=== PATIENT | male | born 1950 | race Caucasian/White ===

== ENCOUNTER 2016-06-06 21:36 | Emergency (ER) | payer OTHER, MEDICARE, BC ==
[~2016-06-06 21:36] MED LIST: AMLO10TA2 PO; ASPI325T70 PO; ATOR20TA58 PO; CYAN100016 SL; CYCL10TA2 PO; FENO145T2 PO; FLUT1DIS3 IH; FURO-69 PO; HYDR-2672 PO; METO25TA9 PO; MORP30CA14 PO; POTA20TA84 PO; PRAM1TAB5 PO; TEST200V3 IM; TOPI15CA4 PO; VITA1CAP3 PO; WARF1TAB7 PO
[2016-06-06 21:53] VITALS: BP 122/83
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
== END 2016-06-06 23:25 | disposition home or self-care (01) ==
LOC: ER 21:36
DX: M25.512 Pain in left shoulder (principal); K21.9 Gastro-esophageal reflux disease without esophagitis; E78.00 Pure hypercholesterolemia, unspecified; I11.9 Hypertensive heart disease without heart failure; G89.29 Other chronic pain; G43.909 Migraine, unspecified, not intractable, without status migrainosus; Z88.6 Allergy status to analgesic agent; Z88.8 Allergy status to other drugs, medicaments and biological substances; V89.2XXA Person injured in unspecified motor-vehicle accident, traffic, initial encounter; Y93.89 Activity, other specified; Y99.8 Other external cause status; Y92.89 Other specified places as the place of occurrence of the external cause
CPT/HCPCS: 73030; 99284

== ENCOUNTER 2016-07-05 13:34 | Emergency (ER) | payer MEDICARE, BC ==
[~2016-07-05] VITALS: Ht 177.8 cm; Wt 86.2 kg
[~2016-07-05 13:34] MED LIST changes: +CYCL-331 PO; -CYCL10TA2 PO; -HYDR-2672 PO; +HYDR-2766 PO
--- NOTE | 2016-07-05 13:52 | EKG ---
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
[2016-07-05 14:30] LABS: HEMATOCRIT 42.4 % (39.0-53.0); HEMOGLOBIN 14.1 g/dL (13.0-17.5); RED BLOOD COUNT 4.61 x10^6/uL (4.30-5.70); RED CELL DISTRIBUTION WIDTH 14.9 % (11.5-14.5); WHITE BLOOD COUNT 8.1 x10^3/uL (4.0-11.0)
[2016-07-05] MEDS ORDERED: methylPREDNISolone SOD SUCC PF 125 MG/2 ML VIAL. IV ONE (14:30)
[2016-07-05] MEDS ORDERED: ALBUTEROL SULFATE 2.5 MG/3 ML NEBU. CONT NEB ONE (14:30)
[2016-07-05] MEDS ORDERED: ONDANSETRON PF 4 MG/2 ML VIAL. IV ONE (14:30)
[2016-07-05] MEDS ORDERED: IPRATROPIUM BROMIDE 0.5 MG/2.5 ML NEBU. NEB ONE (14:30)
[2016-07-05] MEDS ORDERED: fentaNYL PF 100 MCG/2 ML VIAL IV ONE (14:30)
--- NOTE | 2016-07-05 14:32 | RAD ---
Examination: Single frontal view chest History: Acute shortness of breath, smoking history Comparison: 11/03/2025 Findings: Low lung volumes accentuates heart size and pulmonary vasculature. Mild linear left lung base interstitial prominence likely chronic changes grossly similar to prior exam. There is no acute infiltrate or visualized pneumothorax identified. Impression: No acute cardiopulmonary findings.
[2016-07-05] MEDS ORDERED: PANT40TA3 PO (14:34)
[2016-07-05] MEDS ORDERED: ATOR40TA PO (14:35)
[2016-07-05] MEDS ORDERED: CYCL-331 PO (14:36)
[2016-07-05 14:53] LABS: BGAS PH 7.35 (7.35-7.46)
[2016-07-05 14:58] LABS: ALBUMIN 3.2 g/dL (3.4-5.0); ALBUMIN/GLOBULIN RATIO 0.7 (1.0-1.7); CALCIUM 9.1 mg/dL (8.5-10.1); CREATININE 1.2 mg/dL (0.7-1.3); GFR 60.6; POTASSIUM 3.8 mmol/L (3.5-5.1); TOTAL BILIRUBIN 0.5 mg/dL (0.2-1.0); TOTAL PROTEIN 7.7 g/dL (6.4-8.2)
[2016-07-05] MEDS ORDERED: CONTRAST GIVEN MC PRN (15:15)
--- NOTE | 2016-07-05 15:24 | ED.ADGEN ---
Past History Past Medical History: CAD Past Surgical History: Other Smoking: Cigarettes, Less than 1pk/day Alcohol Use: None Drug Use: None Adult General Chief Complaint Chief Complaint Shortness of air HPI HPI Patient is a 66-year-old male with history of chronic bronchitis who presents with increased shortness of breath since yesterday afternoon. Symptoms began after spray pain exposure. No relief with home albuterol. Patient reports productive cough with clear sputum. Reports Chest tightness with cough only, denies fever chills, nausea vomiting and sweats. No chest pain chest tightness, leg pain and swelling history of DVT or PE. No other acute symptoms or complaints. Review of Systems Review of Systems ROS as per HPI. Current Medications Current Medications Current Medications Medications (Trade) Dose Ordered Sig/Rosalie Start Time Stop Time Status Last Admin Dose Admin Albuterol Sulfate (Ventolin) 10 mg 1X ONCE 07/05/16 14:30 07/05/16 14:32 DC 07/05/16 15:17 10 MG Fentanyl Citrate (Fentanyl 2ml Vial) 50 mcg 1X ONCE 07/05/16 14:30 07/05/16 14:32 DC 07/05/16 14:23 50 MCG Info (Do NOT chart on this entry -- for MONITORING) 1 each PRN DAILY PRN 07/05/16 15:15 07/07/16 15:14 Iohexol (Omnipaque 300 Mg/ml) 75 ml 1X ONCE 07/05/16 15:30 07/05/16 15:31 DC 07/05/16 15:26 75 ML Ipratropium [place] (Atrovent) 0.5 mg 1X ONCE 07/05/16 14:30 07/05/16 14:32 DC 07/05/16 14:22 0.5 MG Levofloxacin (Levaquin) 500 mg 1X ONCE 07/05/16 16:00 07/05/16 16:01 DC Methylprednisolone Sodium Succinate (SOLU-Medrol 125MG VIAL) 125 mg 1X ONCE 07/05/16 14:30 07/05/16 14:32 DC 07/05/16 14:23 125 MG Ondansetron HCl (Zofran) 4 mg 1X ONCE 07/05/16 14:30 07/05/16 14:32 DC 07/05/16 14:23 4 MG Allergies Allergies Allergies Coded Allergies Type Severity Reaction Last Updated Verified acetaminophen Allergy Intermediate 09/26/13 Yes chlorpheniramine Allergy Intermediate 09/26/13 Yes disulfiram Allergy Intermediate 07/03/13 Yes phenylephrine Allergy Intermediate 09/26/13 Yes Physical Exam Physical Exam Constitutional: Well developed, well nourished, no acute distress, non-toxic appearance. HENT: Normocephalic, atraumatic, bilateral external ears normal, oropharynx moist, no oral exudates, nose normal. Eyes: PERRLA, EOMI, conjunctiva normal. Neck: Normal range of motion, no tenderness, supple. Cardiovascular:Heart rate regular rhythm, no murmur. Negative Homans signs. 1+ peripheral edema. Lungs & Thorax: Respirations nonlabored, significantly diminished breath sounds bilaterally with tight inspiratory and expiratory wheezes. Abdomen: Bowel sounds normal, soft, no tenderness. Skin: Warm, dry. Back: No tenderness. Extremities: No tenderness. Neurologic: Alert and oriented X 3, normal motor function, normal sensory function, no focal deficits noted. Psychologic: Affect normal, judgement normal, mood normal. Current Patient Data Vital Signs Vital Signs Date Time Temp Pulse Resp B/P (MAP) Pulse Ox O2 Delivery O2 Flow Rate FiO2 07/05/16 15:21 Room Air 07/05/16 13:50 97.8 89 20 98 Lab Results Laboratory Tests Test 07/05/16 13:52 07/05/16 14:25 White Blood Count 8.1 x10^3/uL (4.0-11.0) Red Blood Count 4.61 x10^6/uL (4.30-5.70) Hemoglobin 14.1 g/dL (13.0-17.5) Hematocrit 42.4 % (39.0-53.0) Mean Corpuscular Volume 92 fL (79-100) Mean Corpuscular Hemoglobin 31 pg (25-35) Mean Corpuscular Hemoglobin Concent 33 g/dL (31-37) Red Cell Distribution Width 14.9 % (11.5-14.5) H Platelet Count 121 x10^3/uL (140-400) L D-Dimer (Shayy) 2.20 mg/L (0.00-0.50) H Sodium Level 141 mmol/L (136-145) Potassium Level 3.8 mmol/L (3.5-5.1) Chloride Level 106 mmol/L (98-107) Carbon Dioxide Level 25 mmol/L (21-32) Anion Gap 10 (6-14) Blood Urea Nitrogen 14 mg/dL (8-26) Creatinine 1.2 mg/dL (0.7-1.3) Estimated GFR (Cockcroft-Gault) 60.6 BUN/Creatinine Ratio 12 (6-20) Glucose Level 122 mg/dL (70-99) H Calcium Level 9.1 mg/dL (8.5-10.1) Total Bilirubin 0.5 mg/dL (0.2-1.0) Aspartate Amino Transferase (AST) 18 U/L (15-37) Alanine Aminotransferase (ALT) 23 U/L (16-63) Alkaline Phosphatase 99 U/L (46-116) Total Protein 7.7 g/dL (6.4-8.2) Albumin 3.2 g/dL (3.4-5.0) L Albumin/Globulin Ratio 0.7 (1.0-1.7) L Blood pH 7.35 (7.35-7.46) Blood Gas PCO2 38 mmHg (35-46) Blood Gas PO2 61 mmHg (80-100) L Blood Gas HCO3 21 mmol/L (21-28) Arterial Bld O2 Saturation (Calc) 90 % (92-99) L FiO2 21 % EKG EKG [EKG: Normal sinus rhythm, rate 93, no acute ST-T wave changes.] Radiology/Procedures Radiology/Procedures [X-ray: No acute cardiopulmonary disease per radiology report CTA chest: PE, possible bibasilar atelectasis/infiltrate Course & Med Decision Making Course & Med Decision Making Pertinent Labs and Imaging studies reviewed. (See chart for details) Increased air movement with prednisone and albuterol. Patient able to maintain O2 sats greater than 95% on room air. Patient offered hospital admission for treatment of bronchitis/pneumonia with COPD exacerbation. Patient declines admission, and prefers to follow-up with his PCP. He agrees to return if symptoms worsen.] Final Impression Final Impression 1. Pneumonia 2. COPD exacerbation[] Problems: Dragon Disclaimer Dragon Disclaimer This electronic medical record was generated, in whole or in part, using a voice recognition dictation system. BANG GARCIA DO July 05, 2016 15:24
[2016-07-05] MEDS ORDERED: IOHEXOL 300 MG/ML 75 ML VIAL. IV ONE (15:30)
--- NOTE | 2016-07-05 15:47 | RAD ---
Examination: CT angiogram of the chest History: History of chest pain comparison: 01/22/2014 Technique: Axial CT and radiographic images were performed with IV contrast. Coronal and sagittal 3-D MIP reformats are performed PQRS Compliance Statement: One or more of the following individualized dose reduction techniques were utilized for this examination: 1. Automated exposure control 2. Adjustment of the mA and/or kV according to patient size 3. Use of iterative reconstruction technique Findings: The caliber of the aorta grossly appears unremarkable. Mild aortic atherosclerosis. Mild coronary artery calcifications. There is no evidence of filling defect identified in the main pulmonary artery trunk and right and left main pulmonary arteries and the visualized lobar, segmental branches of the pulmonary arteries. The heart size grossly appears unremarkable. No evidence of pericardial effusion identified. No radiologically significant mediastinal lymphadenopathy is identified. Small calcified mediastinal lymph nodes are identified. Emphysematous changes identified in the bilateral lungs. Patchy bibasal lung atelectasis is identified. The visualized liver, spleen, adrenals grossly appears unremarkable. Mild degenerative changes identified in the thoracic spine. Small inferior endplate Schmorl's node identified in the mid thoracic vertebral body. Partially visualized cystic structure identified in the right kidney could be a cyst. Impression: 1. No evidence of pulmonary embolism. 2. Emphysematous changes identified in the bilateral lungs with patchy bibasal lung airspace opacitIes likely atelectasis or infiltrates. 3. Coronary artery calcifications.
[2016-07-05] MEDS ORDERED: levoFLOXacin 500 MG TABLET PO ONE (16:00)
[2016-07-05 16:34] VITALS: BP 122/78
== END 2016-07-05 16:29 | disposition home or self-care (01) ==
LOC: ER 13:34
DX: J18.9 Pneumonia, unspecified organism (principal); J44.1 Chronic obstructive pulmonary disease with (acute) exacerbation; I25.10 Atherosclerotic heart disease of native coronary artery without angina pectoris; F17.210 Nicotine dependence, cigarettes, uncomplicated; Z88.6 Allergy status to analgesic agent; Z88.8 Allergy status to other drugs, medicaments and biological substances
CPT/HCPCS: 36415; 71010; 71275; 80053; 82803; 85027; 85379; 93005; 94644; 96374; 96375; 99285; J2405; J2930; J3010; J7613; J7644; Q9967; 94640

== ENCOUNTER 2016-07-22 12:27 | Emergency (ER) | payer MEDICARE, BC ==
[~2016-07-22 12:27] MED LIST changes: +ATOR40TA PO; +PANT40TA3 PO
[2016-07-22 12:30] VITALS: BP 136/62
[2016-07-22] MEDS ORDERED: LIDOCAINE/EPI/TETRACAINE TOPICAL GEL 3 ML. TP ONE (13:20)
[2016-07-22] MEDS ORDERED: ONDANSETRON PF 4 MG/2 ML VIAL. IV ONE (13:20)
[2016-07-22] MEDS ORDERED: GELATIN SPONGE SIZE 12-7MM SPONGE. TP ONE (13:20)
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
== END 2016-07-22 13:42 | disposition home or self-care (01) ==
LOC: ER 12:27
DX: S81.011A Laceration without foreign body, right knee, initial encounter (principal); I11.9 Hypertensive heart disease without heart failure; I25.10 Atherosclerotic heart disease of native coronary artery without angina pectoris; E78.00 Pure hypercholesterolemia, unspecified; F17.210 Nicotine dependence, cigarettes, uncomplicated; Z88.6 Allergy status to analgesic agent; Z88.8 Allergy status to other drugs, medicaments and biological substances; W20.8XXA Other cause of strike by thrown, projected or falling object, initial encounter; Y93.89 Activity, other specified; Y99.8 Other external cause status; Y92.89 Other specified places as the place of occurrence of the external cause
CPT/HCPCS: 12001; 99283-25

== ENCOUNTER → 2016-07-27 | Outpatient (CLI) | payer MEDICARE, BC ==
[2016-07-22 12:30] VITALS: BP 136/62
[2016-07-27 14:35] LABS: BASO % 0 % (0-3); EOS # 0.2 x10^3/uL (0.0-0.7); EOS % 2 % (0-3); HEMATOCRIT 46.8 % (39.0-53.0); HEMOGLOBIN 15.3 g/dL (13.0-17.5); LYMPH % 37 % (24-48); MEAN CORPUSCULAR HEMOGLOBIN 31 pg (25-35); MEAN CORPUSCULAR HGB CONC 33 g/dL (31-37); MEAN CORPUSCULAR VOLUME 94 fL (79-100); MONO # 0.9 x10^3/uL (0.0-1.1); MONO % 8 % (0-9); NEUT # 5.9 x10^3uL (1.8-7.7); NEUT % 53 % (31-73); PLATELET COUNT 125 x10^3/uL (140-400); RED BLOOD COUNT 4.98 x10^6/uL (4.30-5.70); RED CELL DISTRIBUTION WIDTH 15.3 % (11.5-14.5); WHITE BLOOD COUNT 11.1 x10^3/uL (4.0-11.0)
[2016-07-27 14:46] LABS: CALCIUM 8.7 mg/dL (8.5-10.1); CREATININE 1.4 mg/dL (0.7-1.3); GFR 50.7; POTASSIUM 3.5 mmol/L (3.5-5.1)
== END | disposition home or self-care (01) ==
LOC: LAB 13:49
DX: I25.10 Atherosclerotic heart disease of native coronary artery without angina pectoris (principal)
CPT/HCPCS: 36415; 80048; 85027

== ENCOUNTER → 2016-09-03 | Outpatient (CLI) | payer MEDICARE, BC ==
[2016-09-03 14:41] LABS: CALCIUM 9.4 mg/dL (8.5-10.1); CREATININE 1.4 mg/dL (0.7-1.3); GFR 50.7; POTASSIUM 4.6 mmol/L (3.5-5.1)
== END | disposition home or self-care (01) ==
LOC: LAB 13:31
PROVIDERS: ATTEND Internal Medicine Cardiovascular Disease
DX: R06.00 Dyspnea, unspecified (principal); R60.0 Localized edema
CPT/HCPCS: 36415; 80048

== ENCOUNTER 2016-09-25 18:26 | Inpatient (IN) | payer MEDICARE, BC ==
[~2016-09-25] VITALS: Ht 177.8 cm; Wt 94.0 kg
[2016-09-25] MEDS ORDERED: IPRATRPIUM/ALBUTEROL 0.5/2.5MG 3 ML NEBU. ONE (18:42)
--- NOTE | 2016-09-25 19:19 | ED.ADGEN ---
Past History Past Medical History: Bronchitis, CAD, CHF, COPD, High Cholesterol, Heart Disease, Hypertension Past Surgical History: Other Smoking: Cigarettes, Less than 1pk/day Alcohol Use: Occasionally Drug Use: None Adult General Chief Complaint Chief Complaint dizzy and soa HPI HPI Patient is a 66 y/o male who has had soa for 4 days. he has had positional dizziness for 2 days. he has been wheezing and has copd. he pneumonia 2-3 months ago per . yesterday morning he got very dizzy when he bent over to get something off the floor. now, if he turns his head too fast or bends over, he gets dizzy and nauseated. he states it is not lightheadedness, it's spinning sensation and ground looks like its moving. he denies nausea right now. and is not dizzy as long as he doesn't move his head. nurses stated he was wheezing on exam and he had a duoneb before I listened to lungs. he states he has been wheezing more at home. he stopped smoking 4 weeks ago. his doctor has him on lasix and added another 5mg water pill but they are unsure of name. however, he ran out of potassium 3 days. his legs are still swollen but not out of ordinary. he has not had chest pain or headache or fever Review of Systems Review of Systems Constitutional: Denies fever or chills [] Eyes: Denies change in visual acuity, redness, or eye pain [] HENT: Denies nasal congestion or sore throat [] Respiratory: + shortness of breath, wheezing [] Cardiovascular: No additional information not addressed in HPI [] GI: Denies abdominal pain, nausea, vomiting, bloody stools or diarrhea [] : Denies dysuria or hematuria [] Musculoskeletal: Denies back pain or joint pain [] Integument: Denies rash or skin lesions [] Neurologic: Denies headache, focal weakness or sensory changes head spinning Endocrine: Denies polyuria or polydipsia [] Current Medications Current Medications Current Medications Medications (Trade) Dose Ordered Sig/Rosalie Start Time Stop Time Status Last Admin Dose Admin Albuterol/ Ipratropium (Duoneb) 3 ml STK-MED ONCE 09/25/16 18:42 09/25/16 18:43 DC Meclizine HCl (Antivert) 25 mg 1X ONCE 09/25/16 19:30 09/25/16 19:31 DC 09/25/16 19:29 25 MG Potassium Chloride (KCl Oral Soln) 40 meq 1X ONCE 09/25/16 20:45 09/25/16 20:46 DC 09/25/16 20:45 40 MEQ Allergies Allergies Allergies Coded Allergies Type Severity Reaction Last Updated Verified acetaminophen Allergy Intermediate 09/26/13 Yes chlorpheniramine Allergy Intermediate 09/26/13 Yes disulfiram Allergy Intermediate 07/03/13 Yes phenylephrine Allergy Intermediate 09/26/13 Yes Physical Exam Physical Exam Constitutional: Well developed, well nourished, no acute distress, non-toxic appearance. [] HENT: Normocephalic, atraumatic, bilateral external ears normal, oropharynx moist, no oral exudates, nose normal. [] Eyes: PERRLA, EOMI, conjunctiva normal, no discharge. +horizontal nystagmus Neck: Normal range of motion, no tenderness, supple, no stridor. [] Cardiovascular:Heart rate regular rhythm, +murmur Lungs & Thorax: Bilateral breath sounds clear to auscultation after duoneb Abdomen: Bowel sounds normal, soft, no tenderness, no masses, no pulsatile masses. [] Skin: Warm, dry, no erythema, no rash. [] Back: No tenderness, no CVA tenderness. [] Extremities: No tenderness, no cyanosis, no clubbing, ROM intact, +2+edema bilat. calf tightness bilat Neurologic: Alert and oriented X 3, normal motor function, normal sensory function, no focal deficits noted. [] Psychologic: Affect normal, judgement normal, mood normal. [] Current Patient Data Vital Signs Vital Signs Date Time Temp Pulse Resp B/P (MAP) Pulse Ox O2 Delivery O2 Flow Rate FiO2 09/25/16 21:11 88 20 141/69 (93) 97 Nasal Cannula 3.0 09/25/16 18:39 98.0 Lab Results Laboratory Tests Test 09/25/16 18:47 White Blood Count 8.7 x10^3/uL (4.0-11.0) Red Blood Count 4.75 x10^6/uL (4.30-5.70) Hemoglobin 14.7 g/dL (13.0-17.5) Hematocrit 43.2 % (39.0-53.0) Mean Corpuscular Volume 91 fL (79-100) Mean Corpuscular Hemoglobin 31 pg (25-35) Mean Corpuscular Hemoglobin Concent 34 g/dL (31-37) Red Cell Distribution Width 14.2 % (11.5-14.5) Platelet Count 134 x10^3/uL (140-400) L Neutrophils (%) (Auto) 64 % (31-73) Lymphocytes (%) (Auto) 27 % (24-48) Monocytes (%) (Auto) 8 % (0-9) Eosinophils (%) (Auto) 1 % (0-3) Basophils (%) (Auto) 0 % (0-3) Neutrophils # (Auto) 5.5 x10^3uL (1.8-7.7) Lymphocytes # (Auto) 2.3 x10^3/uL (1.0-4.8) Monocytes # (Auto) 0.7 x10^3/uL (0.0-1.1) Eosinophils # (Auto) 0.1 x10^3/uL (0.0-0.7) Basophils # (Auto) 0.0 x10^3/uL (0.0-0.2) Sodium Level 133 mmol/L (136-145) L Potassium Level 1.9 mmol/L (3.5-5.1) *L Chloride Level 88 mmol/L (98-107) L Carbon Dioxide Level 40 mmol/L (21-32) H Anion Gap 5 (6-14) L Blood Urea Nitrogen 45 mg/dL (8-26) H Creatinine 2.4 mg/dL (0.7-1.3) H Estimated GFR (Cockcroft-Gault) 27.2 BUN/Creatinine Ratio 19 (6-20) Glucose Level 195 mg/dL (70-99) H Calcium Level 9.4 mg/dL (8.5-10.1) Magnesium Level 2.8 mg/dL (1.8-2.4) H Total Bilirubin 0.4 mg/dL (0.2-1.0) Aspartate Amino Transferase (AST) 21 U/L (15-37) Alanine Aminotransferase (ALT) 23 U/L (16-63) Alkaline Phosphatase 136 U/L (46-116) H Troponin I Quantitative < 0.017 ng/mL (0-0.055) WO-Wjw-G-Type Natriuretic Peptide 247 pg/mL (0-124) H Total Protein 8.3 g/dL (6.4-8.2) H Albumin 3.6 g/dL (3.4-5.0) Albumin/Globulin Ratio 0.8 (1.0-1.7) L EKG EKG EKG: nsr HR [address] elev or depression.[] Radiology/Procedures Radiology/Procedures no infiltrate[] Course & Med Decision Making Course & Med Decision Making Pertinent Labs and Imaging studies reviewed. (See chart for details) pt feels better with meds. will start PO potassium and IV potassium. Spoke with Dr. He about admission to ICU. [] Final Impression Final Impression hypokalemia acute renal failure COPD[] Problems: Dragon Disclaimer Dragon Disclaimer This electronic medical record was generated, in whole or in part, using a voice recognition dictation system. Critical Care Time Critical care time was [31-74] minutes exclusive of procedures. Critical Care Note Comments pt presented with SOA, no cp, "dizziness" with head movement. potassium is 1.9. he has been without potassium replacement for 3 days. EKG shown no elev, dep, QRS is normal, NE is normal. BP has been stable. HR 93 MANAN CHAPMAN MD Sep 25, 2016 19:19
[2016-09-25 19:21] LABS: BASO % 0 % (0-3); EOS # 0.1 x10^3/uL (0.0-0.7); EOS % 1 % (0-3); HEMATOCRIT 43.2 % (39.0-53.0); HEMOGLOBIN 14.7 g/dL (13.0-17.5); LYMPH # 2.3 x10^3/uL (1.0-4.8); LYMPH % 27 % (24-48); MEAN CORPUSCULAR HEMOGLOBIN 31 pg (25-35); MEAN CORPUSCULAR HGB CONC 34 g/dL (31-37); MEAN CORPUSCULAR VOLUME 91 fL (79-100); MONO # 0.7 x10^3/uL (0.0-1.1); MONO % 8 % (0-9); NEUT # 5.5 x10^3uL (1.8-7.7); NEUT % 64 % (31-73); PLATELET COUNT 134 x10^3/uL (140-400); RED BLOOD COUNT 4.75 x10^6/uL (4.30-5.70); RED CELL DISTRIBUTION WIDTH 14.2 % (11.5-14.5); WHITE BLOOD COUNT 8.7 x10^3/uL (4.0-11.0)
[2016-09-25] MEDS ORDERED: MECLIZINE 12.5 MG TABLET. PO ONE (19:30)
[2016-09-25 19:35] LABS: ALBUMIN 3.6 g/dL (3.4-5.0); ALBUMIN/GLOBULIN RATIO 0.8 (1.0-1.7); CALCIUM 9.4 mg/dL (8.5-10.1); CREATININE 2.4 mg/dL (0.7-1.3); GFR 27.2; MAGNESIUM 2.8 mg/dL (1.8-2.4); TOTAL BILIRUBIN 0.4 mg/dL (0.2-1.0); TOTAL PROTEIN 8.3 g/dL (6.4-8.2)
[2016-09-25 19:38] LABS: POTASSIUM 1.9 mmol/L (3.5-5.1)
[2016-09-25] MEDS ORDERED: POTASSIUM CHLORIDE 20MEQ 100 ML IV ONE ×2 (20:45→22:45)
[2016-09-25] MEDS ORDERED: POTASSIUM CHLORIDE 20 MEQ/15 ML ORAL LIQUID. PEG ONE (20:45)
[2016-09-25] MEDS ORDERED: IV NORMAL SALINE 1,000ML 1,000 ML IV SCH (21:16)
[2016-09-25] MEDS ORDERED: IV NORMAL SALINE 1,000ML 1,000 ML IV ONE (21:30)
[2016-09-25] MEDS ORDERED: ONDANSETRON PF 4 MG/2 ML VIAL. IV PRN (21:30)
[2016-09-25 23:02] VITALS: BP 121/77
[2016-09-25 23:44] VITALS: BP 115/78
[2016-09-26] VITALS (23 sets, daily range): BP systolic 94–152; BP diastolic 53–88
--- NOTE | 2016-09-26 01:20 | ACF ---
Admission Criteria Forms HYPONATREMIA; HYPERNATREMIA; HYPOKALEMIA; HYPERKALEMIA; HYPOCALCEMIA; HYPERCALCEMIA Clinical Indications for Inpatient Care (Place 'X' for any and all applicable criteria): Ongoing inpatient care may be indicated for ANY ONE of the following [G](1)(2)(3 )(5): [ ]I. Hyponatremia with ANY ONE of the following: [ ]a) Sodium less than 130 mEq/L (mmol/L) (new) (6)(22) [ ]b) Sodium less than 135 mEq/L (mmol/L) with ANY ONE of the following: [ ]i) Severe medical etiology requiring inpatient management (eg, heart failure, hypovolemia) [ ]ii) Altered mental status [ ]iii) Seizures [ ]II. Hypernatremia with ANY ONE of the following: [ ]a) Sodium greater than 155 mEq/L (mmol/L) [ ]b) Sodium greater than 150 mEq/L (mmol/L) with ANY ONE of the following: [ ] i) Altered mental status [ ]ii) Seizures [ ]iii) Severe medical etiology (eg, hypovolemia, diabetes insipidus) [ ]iv) Severe weakness [ ]v) Severe medical etiology (eg, hemolysis, infection, drug overdose) [X]III. Hypokalemia with ANY ONE of the following: [X]a) Potassium less than 2.5 mEq/L (mmol/L) despite outpatient and emergency treatment [ ]b) Potassium less than 3.0 mEq/L (mmol/L) with ANY ONE of the following: [ ]i) Weakness [ ]ii) Cardiac abnormality (eg, arrhythmia, conduction disturbance) [ ]iii) Cardiac ischemia [ ]iv) Ileus [ ]v) Ongoing medical cause requiring inpatient management. ( e.g., acute renal wasting, SIADH) [ ]vi) Other severe symptoms [ ] IV. Hyperkalemia with ANY ONE of the following: [ ]a) Potassium greater than 6.5 mEq/L (mmol/L) [ ]b) Potassium greater than 5 mEq/L (mmol/L) with ANY ONE of the following: [ ]i) Severe ECG findings [H] [ ]ii) Acute worsening of renal failure (creatinine greater than 2.5 mg/dL (221 micromoles/L) or significant elevation for age and size) [ ] V. Hypocalcemia with ANY ONE of the following: [ ]a) Calcium less than 7 mg/dL (1.75 mmol/L) despite outpatient and emergency treatment(19) [ ]b) Calcium less than 8 mg/dL (2 mmol/L) with significant symptoms or findings; examples include: [ ]i) Cardiac abnormality (eg, arrhythmia or conduction disturbance) [ ]ii) Altered mental status [ ]iii) Seizures [ ]iv) Breathing difficulty [ ]v) Muscle spasms [ ]. Hypercalcemia with ANY ONE of the following: [ ]a) Calcium greater than 14 mg/dL (3.5 mmol/L) [ ]b) Calcium greater than 12 mg/dL (3 mmol/L) with ANY ONE of the following: [ ]i) Significant dehydration or hypovolemia as indicated by ANY ONE of the following(2): [ ]1. Clinically significant dehydration as indicated by ANY ONE of the following: [ ]A. Acute loss of weight from baseline (5% of body weight in adults, 9% in pediatric patients) [ ]B. Hemodynamic instability [ ]C. Acute renal failure [ ]D. Serum sodium greater than 150 mEq/L (mmol/L) [ ]2) Dehydration that is persistent indicated by ALL of the following: [ ]A. Oral rehydration therapy not tolerated or insufficient to adequately correct dehydration [ ]B. Appropriate intravenous treatment (eg, fluids ) does not readily correct dehydration ie, after 12 to 24 hours of treatment) [ ]ii) Significant symptoms or findings; examples include: [ ]1) Altered mental status [ ]2) Cardiac abnormality (eg, arrhythmia, conduction disturbance) [ ]3) Cardiac abnormality (eg, arrhythmia, conduction disturbance) The original [facility] content created by [employer] has been revised. The portions of the content which have been revised are identified through the use of italic text or in bold, and [facility] has neither reviewed nor approved the modified material. All other unmodified content is copyright [facility] [employer] Please see references footnoted in the original [facility] [employer] edition 2016 Admission Criteria Met?: Yes RAHEL LEE Sep 26, 2016 01:20
[2016-09-26] MEDS: POTASSIUM CHLORIDE 10MEQ 100 ML IV SCH ×2 (01:44→03:07)
[2016-09-26 06:30] LABS: BASO % 0 % (0-3); EOS # 0.1 x10^3/uL (0.0-0.7); EOS % 2 % (0-3); HEMATOCRIT 37.6 % (39.0-53.0); HEMOGLOBIN 12.9 g/dL (13.0-17.5); LYMPH % 28 % (24-48); MEAN CORPUSCULAR HEMOGLOBIN 31 pg (25-35); MEAN CORPUSCULAR HGB CONC 34 g/dL (31-37); MEAN CORPUSCULAR VOLUME 90 fL (79-100); MONO # 0.9 x10^3/uL (0.0-1.1); MONO % 12 % (0-9); NEUT # 4.1 x10^3uL (1.8-7.7); NEUT % 58 % (31-73); PLATELET COUNT 120 x10^3/uL (140-400); RED BLOOD COUNT 4.17 x10^6/uL (4.30-5.70); RED CELL DISTRIBUTION WIDTH 14.1 % (11.5-14.5); WHITE BLOOD COUNT 7.1 x10^3/uL (4.0-11.0)
[2016-09-26 06:46] LABS: ALBUMIN/GLOBULIN RATIO 0.8 (1.0-1.7); CALCIUM 8.6 mg/dL (8.5-10.1); CREATININE 1.9 mg/dL (0.7-1.3); GFR 35.6; TOTAL BILIRUBIN 0.3 mg/dL (0.2-1.0); TOTAL PROTEIN 6.9 g/dL (6.4-8.2)
[2016-09-26] MEDS ORDERED: CLOP75TA (06:46)
[2016-09-26] MEDS ORDERED: SUMA100T4 PO (06:46)
[2016-09-26] MEDS ORDERED: TOPI50TA8 PO (06:46)
[2016-09-26] MEDS ORDERED: NITR0.4T22 (06:46)
[2016-09-26] MEDS ORDERED: PRAM1TAB PO (06:46)
[2016-09-26] MEDS ORDERED: ATOR40TA59 PO (06:46)
[2016-09-26] MEDS ORDERED: METO5TAB4 PO (06:46)
[2016-09-26] MEDS ORDERED: TAMS0.4C2 PO (06:46)
[2016-09-26] MEDS ORDERED: POTA20TA84 PO (06:46)
[2016-09-26] MEDS ORDERED: METO25TA4 PO (06:46)
[2016-09-26] MEDS ORDERED: MORP60CA17 (06:46)
--- NOTE | 2016-09-26 06:52 | EKG ---
[address] [address] Test Date: 2016-09-25 Test Time: 18:34:36 Pat Name: JOSE BRADEN Department: Room: [facility] 1 Gender: M Wad Impregnator: ESTELA : 1950 Requested By: MANAN CHAPMAN Order Number: [id number] Reading MD: Jose Monique Measurements Intervals [place] Rate: 93 P: -59 MI: 132 QRS: 27 QRSD: 110 T: 31 QT: 412 QTc: 515 Interpretive Statements SINUS RHYTHM LEFT ATRIAL ABNORMALITY INCOMPLETE RIGHT BUNDLE BRANCH BLOCK NONSPECIFIC ST-T WAVE CHANGES. RI6.01 Unconfirmed report Electronically Signed On 10-01-2016 9:36:58 CDT by Jose Monique
[2016-09-26] MEDS ORDERED: POTASSIUM CHLORIDE 20 MEQ TABLET.ER. PO SCH (07:30)
[2016-09-26] MEDS: POTASSIUM CL 40MEQ IN 0.9%NACL 1,000 ML IV SCH ×2 (07:45→22:27)
[2016-09-26] MEDS ORDERED: FURO40TA4 PO (08:09)
[2016-09-26] MEDS ORDERED: CYCL-331 PO (08:09)
[2016-09-26] MEDS ORDERED: HYDR-2766 PO (08:09)
[2016-09-26] MEDS ORDERED: ASPI-630 PO (08:09)
[2016-09-26] MEDS ORDERED: CYCLOBENZAPRINE 10 MG TABLET. PO PRN (08:15)
[2016-09-26] MEDS ORDERED: NON FORMULARY ITEM (Fluticasone/Salmeterol (Advair 250-50 Diskus) 1 EACH) IH PRN (08:15)
[2016-09-26] MEDS: MORPHINE ER 60 MG TABLET.ER PO SCH ×2 (08:38→21:40)
[2016-09-26] MEDS ORDERED: SUMAtriptan SUCCINATE 50 MG TABLET PO PRN (08:45)
--- NOTE | 2016-09-26 08:53 | PDOC2 ---
MAURILIORUFINO Rosa DOWNING 09/26/16 0853: CONSULT Date of Admission DATE: 09/26/16 TIME: 08:46 Reason for Consult: hypokalemia, CHF Problem List Problems Medical Problems: (1) Renal failure Status: Acute History of Present Illness Mr Smith is a 66 year old male with history of coronary artery disease with 2 prior stents, peripheral arterial disease with recent peripheral stenting by history, congestive heart failure, hypertension, hyperlipidemia and COPD. He reports increased leg and abdominal edema for several weeks after his last peripheral intervention. He was seen and his diuretics and potassium increased about 2 weeks ago. He reports improvement in the edema but subsequently ran out of potassium several days ago and was having difficulty getting it renewed. He complains of increasing lightheadedness on standing, and dizziness with turning his head. He says he felt he might pass out so presented for evaluation. He additionally complains of some increased shortness of breath and chronic orthopnea for which he keeps his HOB about 45 degrees. He denies any chest pain or discomfort. He reports an echo and stress test in the last 6 months. 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 Potassium in the ED was noted at 1.9 Past Medical History PMHX/PSHX CAD, HTN, PAD, HLD, COPD, CHF\ chronic low back pain and multiple lumbar surgeries with plans for repeat surgery in the near future Rotator cuff tear left shoulder awaiting surgery. Prior shoulder surgery on the right and left knee surgery. Echo in 2016 revealed normal LV EF and wall motion. Recent echo and stress testing as well as cardiac cath and aortogram records requested. Family History father with emphysema mother with meningitis Social History prior smoker, quit 1 month ago no illicit drugs occasional ETOH Current Medications Current Medications Albuterol/ Ipratropium (Duoneb) 3 ml STK-MED ONCE .ROUTE ; Start 09/25/16 at 18: 42; Stop 09/25/16 at 18:43; Status DC Meclizine HCl (Antivert) 25 mg 1X ONCE PO Last administered on 09/25/16 19:29 ; Start 09/25/16 at 19:30; Stop 09/25/16 at 19:31; Status DC Potassium Chloride 100 ml @ 50 mls/hr 1X ONCE IV Last administered on 20:45; Start 09/25/16 at 20:45; Stop 09/25/16 at 22:44; Status DC Potassium Chloride (KCl Oral Soln) 40 meq 1X ONCE PEG Last administered on 09/25 20:45; Start 09/25/16 at 20:45; Stop 09/25/16 at 20:46; Status DC Sodium Chloride 1,000 ml @ 75 mls/hr 1X ONCE IV Last administered on 21:30; Start 09/25/16 at 21:30; Stop 09/26/16 at 10:49 Ondansetron HCl (Zofran) 4 mg PRN Q4HRS PRN IV NAUSEA/VOMITING; Start 09/25/16 at 21:30; Stop 09/26/16 at 21:29 Sodium Chloride 1,000 ml @ 50 mls/hr Q20H IV Last administered on 09/26/16 05: 09; Start 09/25/16 at 21:16; Stop 09/26/16 at 07:37; Status DC Potassium Chloride 100 ml @ 50 mls/hr 1X ONCE IV ; Start 09/25/16 at 22:45; Stop 09/26/16 at 00:44; Status UNV Potassium Chloride 100 ml @ 100 mls/hr Q1H IV Last administered on 09/26/16 03 :07; Start 09/25/16 at 23:00; Stop 09/26/16 at 00:59; Status DC Potassium Chloride (Klor-Con) 40 meq Q2HR PO Last administered on 09/26/16 07: 44; Start 09/26/16 at 07:30; Stop 09/26/16 at 08:15; Status DC Potassium Chloride/Sodium Chloride 1,000 ml @ 50 mls/hr Q20H IV Last administered on 09/26/16 07:45; Start 09/26/16 at 07:45 Potassium Chloride (Klor-Con) 40 meq Q2HR PO ; Start 09/26/16 at 09:30; Stop 09/26 at 10:01 Aspirin (Children'S Aspirin) 81 mg DAILY PO ; Start 09/26/16 at 09:00 Clopidogrel Bisulfate (Plavix) 75 mg DAILY PO ; Start 09/26/16 at 09:00 Cyclobenzaprine HCl (Flexeril) 10 mg PRN TID PRN PO PAIN; Start 09/26/16 at 08: 15 Furosemide (Lasix) 40 mg BID PO ; Start 09/26/16 at 09:00; Stop 09/26/16 at 09:00 ; Status DC Acetaminophen/ Hydrocodone Bitart (Lortab 10/325) 1 tab PRN Q6HRS PRN PO PAIN; Start 09/26/16 at 08:15 Metolazone (Zaroxolyn) 5 mg QMTH PO ; Start 09/27/16 at 16:00 Metoprolol Tartrate (Lopressor) 25 mg HS PO ; Start 09/26/16 at 21:00 Pantoprazole Sodium (Protonix) 40 mg DAILY PO ; Start 09/26/16 at 09:00 Tamsulosin HCl (Flomax) 0.4 mg DAILY PO ; Start 09/26/16 at 09:00 Atorvastatin Calcium (Lipitor) 80 mg QHS PO ; Start 09/26/16 at 21:00 Non-Formulary Medication 1 each PRN DAILY PRN IH SHORTNESS OF BREATH; Start 09/26/16 at 08:15; Stop 09/26/16 at 08:39; Status DC Potassium Chloride (Klor-Con) 20 meq DAILYWBKFT PO ; Start 09/27/16 at 08:00 Pramipexole Dihydrochloride (miraPEX) 1 mg QHS PO ; Start 09/26/16 at 21:00 Sumatriptan Succinate (Imitrex) 100 mg PRN DAILY PRN PO HEADACHE; Start at 08:45 Topiramate (Topamax) 50 mg DAILY PO ; Start 09/26/16 at 09:00 Morphine Sulfate (Ms Contin) 60 mg BID PO Last administered on 09/26/16t 08:38; Start 09/26/16 at 09:00 Albuterol Sulfate (Ventolin) 2.5 mg RTQID NEB ; Start 09/26/16 at 12:00 Budesonide (Pulmicort) 0.5 mg RTBID NEB ; Start 09/26/16 at 20:00 Active Scripts Active Reported Aspirin 81 Mg Tab.chew 81 Mg PO DAILY Hydrocodone-Apap 10-325 (Hydrocodone Bit/Acetaminophen) 1 Each Tablet 1 Tab PO PRN Q6HRS PRN Cyclobenzaprine Hcl 10 Mg Tablet 1 Tab PO PRN TID PRN Furosemide 40 Mg Tablet 40 Mg PO BID Sumatriptan Succinate 100 Mg Tablet 100 Mg PO PRN DAILY PRN Clopidogrel (Clopidogrel Bisulfate) 75 Mg Tablet DAILY NITROGLYCERIN SubLingual (Nitroglycerin) 0.4 Mg Tab.subl Metoprolol Tartrate 25 Mg Tablet 25 Mg PO HS K-Tab ER (Potassium Chloride) 20 Meq Tablet.er 20 Meq PO DAILY Tamsulosin Hcl 0.4 Mg Cap.er.24h 0.4 Mg PO DAILY Pramipexole Dihydrochloride (Pramipexole Di-Hcl) 1 Mg Tablet 1 Mg PO HS Topiramate 50 Mg Tablet 50 Mg PO DAILY Morphine Sulfate Er (Morphine Sulfate) 60 Mg Cap.er.pel BID Atorvastatin Calcium 40 Mg Tablet 80 Mg PO HS Metolazone 5 Mg Tablet 5 Mg PO TWICE WEEKLY Take Twice a week on Saturday and Saturday Protonix (Pantoprazole Sodium) 40 Mg Tablet.dr 1 Tab PO DAILY Advair 250-50 Diskus (Fluticasone/Salmeterol) 1 Each Disk.w.dev 1 Each IH PRN DAILY PRN Allergies: Coded Allergies: acetaminophen (Verified Allergy, Intermediate, 09/26/13) hypotension chlorpheniramine (Verified Allergy, Intermediate, 09/26/13) hypotension disulfiram (Verified Allergy, Intermediate, 07/03/13) phenylephrine (Verified Allergy, Intermediate, 09/26/13) hypotension Review of System as per HPI or negative General: Alert, Oriented X3, Cooperative, No acute distress HEENT: Atraumatic, EOMI Lungs: Clear to auscultation Heart: Regular rate, Normal S1, Normal S2, Other (no gallops, clicks or rubs) Abdomen: Normal bowel sounds, Soft Extremities: Other (mild non pitting edema, palpable bilateral DP pulses) Neuro: Normal speech, Strength at 5/5 X4 ext Psych/Mental Status: Mental status NL, Mood NL VITALS Vital Signs Date Time Temp Pulse Resp B/P (MAP) Pulse Ox O2 Delivery O2 Flow Rate FiO2 09/26/16 08:39 98.4 95 20 102/62 (75) Room Air 09/26/16 04:02 98 09/25/16 22:11 3.0 Labs Laboratory Tests Test 09/25/16 18:47 09/26/16 06:06 White Blood Count 8.7 x10^3/uL (4.0-11.0) 7.1 x10^3/uL (4.0-11.0) Red Blood Count 4.75 x10^6/uL (4.30-5.70) 4.17 x10^6/uL (4.30-5.70) Hemoglobin 14.7 g/dL (13.0-17.5) 12.9 g/dL (13.0-17.5) Hematocrit 43.2 % (39.0-53.0) 37.6 % (39.0-53.0) Mean Corpuscular Volume 91 fL (79-100) 90 fL (79-100) Mean Corpuscular Hemoglobin 31 pg (25-35) 31 pg (25-35) Mean Corpuscular Hemoglobin Concent 34 g/dL (31-37) 34 g/dL (31-37) Red Cell Distribution Width 14.2 % (11.5-14.5) 14.1 % (11.5-14.5) Platelet Count 134 x10^3/uL (140-400) 120 x10^3/uL (140-400) Neutrophils (%) (Auto) 64 % (31-73) 58 % (31-73) Lymphocytes (%) (Auto) 27 % (24-48) 28 % (24-48) Monocytes (%) (Auto) 8 % (0-9) 12 % (0-9) Eosinophils (%) (Auto) 1 % (0-3) 2 % (0-3) Basophils (%) (Auto) 0 % (0-3) 0 % (0-3) Neutrophils # (Auto) 5.5 x10^3uL (1.8-7.7) 4.1 x10^3uL (1.8-7.7) Lymphocytes # (Auto) 2.3 x10^3/uL (1.0-4.8) 2.0 x10^3/uL (1.0-4.8) Monocytes # (Auto) 0.7 x10^3/uL (0.0-1.1) 0.9 x10^3/uL (0.0-1.1) Eosinophils # (Auto) 0.1 x10^3/uL (0.0-0.7) 0.1 x10^3/uL (0.0-0.7) Basophils # (Auto) 0.0 x10^3/uL (0.0-0.2) 0.0 x10^3/uL (0.0-0.2) Sodium Level 133 mmol/L (136-145) 135 mmol/L (136-145) Potassium Level 1.9 mmol/L (3.5-5.1) 2.0 mmol/L (3.5-5.1) Chloride Level 88 mmol/L (98-107) 93 mmol/L (98-107) Carbon Dioxide Level 40 mmol/L (21-32) 39 mmol/L (21-32) Anion Gap 5 (6-14) 3 (6-14) Blood Urea Nitrogen 45 mg/dL (8-26) 41 mg/dL (8-26) Creatinine 2.4 mg/dL (0.7-1.3) 1.9 mg/dL (0.7-1.3) Estimated GFR (Cockcroft-Gault) 27.2 35.6 BUN/Creatinine Ratio 19 (6-20) 22 (6-20) Glucose Level 195 mg/dL (70-99) 185 mg/dL (70-99) Calcium Level 9.4 mg/dL (8.5-10.1) 8.6 mg/dL (8.5-10.1) Magnesium Level 2.8 mg/dL (1.8-2.4) Total Bilirubin 0.4 mg/dL (0.2-1.0) 0.3 mg/dL (0.2-1.0) Aspartate Amino Transf (AST/SGOT) 21 U/L (15-37) 15 U/L (15-37) Alanine Aminotransferase (ALT/SGPT) 23 U/L (16-63) 20 U/L (16-63) Alkaline Phosphatase 136 U/L (46-116) 115 U/L (46-116) Troponin I Quantitative < 0.017 ng/mL (0-0.055) RW-Djm-I-Type Natriuretic Peptide 247 pg/mL (0-124) Total Protein 8.3 g/dL (6.4-8.2) 6.9 g/dL (6.4-8.2) Albumin 3.6 g/dL (3.4-5.0) 3.0 g/dL (3.4-5.0) Albumin/Globulin Ratio 0.8 (1.0-1.7) 0.8 (1.0-1.7) Images EKG - sinus rhythm, IRBBB, non specific abn. CXR - no acute abn Assessment/Plan 1. severe hypokalemia - secondary to diuresis with no potassium supplementation - replace potassium per protocol 2. CHF, chronic diastolic - minimal BNP elevation. No overt HF at this time 3. CAD with prior PCI - request records 4. 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 hypertension - mildly hypotensive currently. likely contributing to lightheadedness. diuretics currently on hold 6. ARF likely on CKD.- diuretics on hold. 7. peripheral edema - mild currently, consider venous reflux studies outpatient Problems: GUS MALONEY MD 09/26/16 1635: CONSULT Allergies: Coded Allergies: acetaminophen (Verified Allergy, Intermediate, 09/26/13) hypotension chlorpheniramine (Verified Allergy, Intermediate, 09/26/13) hypotension disulfiram (Verified Allergy, Intermediate, 07/03/13) phenylephrine (Verified Allergy, Intermediate, 09/26/13) hypotension Assessment/Plan Pt. seen and examined. Agree with above SIMULATION ENGINEER Note. [facility] records reviewed. Normal MPI and echo. His BNP is 247. LE edema likely related to venous reflux and PAD rather than true volume overload and HF. Compression socks. Hold diuretics. Bolus 500 ml and 40meq K. Continue IVF. Ok to DC tomorrow from CV perspective. He has f/u next week with dr. Amin and Dr. garcia. Thanks Problems: RUFINO THORPE APRN Sep 26, 2016 08:53 GUS MALONEY MD Sep 26, 2016 16:35
[2016-09-26] MEDS ORDERED: FUROSEMIDE 40 MG TABLET PO SCH (09:00)
--- NOTE | 2016-09-26 09:11 | RAD ---
AP portable chest radiograph 09/25/2016 Clinical History: Shortness of breath. COPD. Recent pneumonia. An AP portable erect digital radiograph of the chest was obtained. Comparison study is dated 07/05/2016. The cardiac silhouette is normal in size. The thoracic aorta is mildly tortuous. No acute pulmonary infiltrate is seen. No pleural effusion or pneumothorax is noted. The osseous structures are unchanged. Impression: No acute pulmonary infiltrate is seen.
[2016-09-26] MEDS: PANTOPRAZOLE 40 MG TABLET. PO SCH (09:19)
[2016-09-26] MEDS: ASPIRIN 81 MG TAB.CHEW PO SCH (09:19)
[2016-09-26] MEDS: CLOPIDOGREL BISULFATE 75 MG TABLET PO SCH (09:19)
[2016-09-26] MEDS: TAMSULOSIN 0.4 MG CAP.ER.24H. PO SCH (09:19)
[2016-09-26] MEDS: TOPIRAMATE 25 MG TABLET. PO SCH (09:19)
[2016-09-26] MEDS: POTASSIUM CHLORIDE 20 MEQ TABLET.ER. PO SCH ×2 (09:20→11:59)
[2016-09-26] MEDS ORDERED: BUDESONIDE 0.5 MG/2 ML NEBU ONE (10:27)
[2016-09-26] MEDS ORDERED: ALBUTEROL SULFATE 2.5 MG/3 ML NEBU. ONE (10:27)
[2016-09-26] MEDS: BUDESONIDE 0.5 MG/2 ML NEBU NEB SCH ×2 (10:29→21:18)
[2016-09-26] MEDS: ALBUTEROL SULFATE 2.5 MG/3 ML NEBU. NEB SCH ×3 (10:30→21:16)
[2016-09-26] MEDS: HYDROcodone/APAP 10/325 1 TAB TABLET PO PRN (11:59)
[2016-09-26 15:00] LABS: CALCIUM 8.8 mg/dL (8.5-10.1); CREATININE 1.9 mg/dL (0.7-1.3); GFR 35.6
[2016-09-26 15:05] LABS: POTASSIUM 2.6 mmol/L (3.5-5.1)
[2016-09-26] MEDS ORDERED: POTASSIUM CHLORIDE 20MEQ 100 ML IV SCH (16:45)
[2016-09-26] MEDS: POTASSIUM CHLORIDE 20 MEQ TABLET.ER. PO PRN ×2 (16:59→20:07)
[2016-09-26] MEDS ORDERED: NORMAL SALINE IV SCH (17:00)
[2016-09-26] MEDS ORDERED: POTASSIUM CHLORIDE IV SCH (17:00)
--- NOTE | 2016-09-26 18:31 | HP ---
ADMIT DATE: 09/26/2016 REASON FOR ADMISSION: Weakness and hypokalemia. HISTORY OF PRESENT ILLNESS: This is a 66-year-old male with an extensive history of coronary artery disease, severe peripheral vascular disease, and fluid retention who had been having issues with increasing edema over the last several weeks. 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 This made him run out of his potassium approximately 4 days ago and attempts to get a new prescription were unsuccessful until yesterday. He progressively became weak, dizzy, and nauseated and when he presented to the Emergency Room, his potassium was 2.9. PAST MEDICAL HISTORY: Stroke without residual in June. He was admitted for pneumonia and COPD in 06/2016. He also has coronary artery disease with two stents, peripheral vascular disease, congestive heart failure, hypertension, hyperlipidemia, COPD, chronic low back pain, and current rotator cuff tear where he is awaiting surgery. He has also had surgery on the right and left knee. FAMILY HISTORY: Father with emphysema. Mother with meningitis. SOCIAL HISTORY: Quit smoking one month ago, heavy smoker prior to that. Currently, on disability. No longer able to work. REVIEW OF SYSTEMS: Positive for feeling weak, dizzy, nauseated, stomach distention, and pain in the lower extremities. ALLERGIES: TYLENOL, CHLORPHENIRAMINE, DISULFIRAM, AND PHENYLEPHRINE. MEDICATIONS: Reviewed and corrected on the APR. OBJECTIVE: VITAL SIGNS: Height 70 inches, weight 207.19 pounds, blood pressure is 108/66, pulse 96, respirations 18, and pulse ox 95% on 2 liters. HEENT: His hearing is normal. Eyes clear. Nose patent. Throat clear. NECK: Supple. Tongue was dry. LUNGS: Clear in all [place]. CARDIOVASCULAR: Regular rhythm and rate, slightly irregular. ABDOMEN: Soft. Mildly distended. EXTREMITIES: With 1+ edema and evidence of peripheral vascular disease with color of his lower extremities. No hair growth. Dry skin. Barely palpable pulses. LABORATORY DATA: His initial potassium was 1.9 with a BUN of 45 and creatinine of 2.4 that was yesterday and now BUN of 37, creatinine of 1.9, and his potassium is 2.6. ASSESSMENT: 1. Severe hypokalemia secondary to diuretics. 2. Acute renal failure secondary to diuretics. 3. Coronary artery disease. 4. Chronic obstructive pulmonary disease. 5. Fluid retention. 6. Heavy tobacco use disorder, just quit. PLAN: Continue to replace potassium and make sure he has a proper dose of diuretics again with potassium prior to discharge. PEYTON MCGOWAN DO DR: GIGI/leo JOB#: [id number] / [id number]
[2016-09-26] MEDS ORDERED: ATORVASTATIN CALCIUM 20 MG TABLET PO SCH (21:00)
[2016-09-26] MEDS ORDERED: PRAMIPEXOLE 0.5 MG TABLET. PO SCH (21:00)
[2016-09-26] MEDS: METOPROLOL TART IMMED RELEASE 25 MG TABLET PO SCH (21:39)
[2016-09-26 23:11] LABS: CALCIUM 8.8 mg/dL (8.5-10.1); CREATININE 1.6 mg/dL (0.7-1.3); GFR 43.5; POTASSIUM 3.3 mmol/L (3.5-5.1)
[2016-09-27] VITALS (8 sets, daily range): BP systolic 91–125; BP diastolic 60–72
[2016-09-27] MEDS: HYDROcodone/APAP 10/325 1 TAB TABLET PO PRN ×2 (03:31→04:30)
[2016-09-27] MEDS: ALBUTEROL SULFATE 2.5 MG/3 ML NEBU. NEB SCH (06:09)
[2016-09-27 06:43] LABS: HEMATOCRIT 36.4 % (39.0-53.0); HEMOGLOBIN 12.2 g/dL (13.0-17.5); RED BLOOD COUNT 3.96 x10^6/uL (4.30-5.70); RED CELL DISTRIBUTION WIDTH 14.4 % (11.5-14.5); WHITE BLOOD COUNT 6.8 x10^3/uL (4.0-11.0)
[2016-09-27 06:57] LABS: ALBUMIN 2.7 g/dL (3.4-5.0); ALBUMIN/GLOBULIN RATIO 0.7 (1.0-1.7); CALCIUM 8.7 mg/dL (8.5-10.1); CREATININE 1.5 mg/dL (0.7-1.3); GFR 46.8; MAGNESIUM 2.4 mg/dL (1.8-2.4); POTASSIUM 3.3 mmol/L (3.5-5.1); TOTAL BILIRUBIN 0.3 mg/dL (0.2-1.0); TOTAL PROTEIN 6.5 g/dL (6.4-8.2)
[2016-09-27] MEDS ORDERED: POTASSIUM CHLORIDE 20 MEQ TABLET.ER. PO SCH (08:00)
[2016-09-27] MEDS: MORPHINE ER 60 MG TABLET.ER PO SCH (08:38)
[2016-09-27] MEDS: CLOPIDOGREL BISULFATE 75 MG TABLET PO SCH (08:39)
[2016-09-27] MEDS: TAMSULOSIN 0.4 MG CAP.ER.24H. PO SCH (08:39)
[2016-09-27] MEDS: METOPROLOL TART IMMED RELEASE 25 MG TABLET PO SCH (08:39)
[2016-09-27] MEDS: TOPIRAMATE 25 MG TABLET. PO SCH (08:39)
[2016-09-27] MEDS: PANTOPRAZOLE 40 MG TABLET. PO SCH (08:39)
[2016-09-27] MEDS: ASPIRIN 81 MG TAB.CHEW PO SCH (08:39)
[2016-09-27] MEDS ORDERED: POTA20TA84 PO (08:55)
[2016-09-27] MEDS ORDERED: metOLazone 5 MG TABLET PO SCH (16:00)
--- NOTE | 2016-09-27 18:32 | DS ---
DATE OF DISCHARGE: 09/27/2016 DISCHARGE DIAGNOSES: 1. Severe hypokalemia secondary to diuretics. 2. Acute renal failure secondary to diuretics. 3. Coronary artery disease. 4. Dehydration. 5. Chronic chronic obstructive pulmonary disease. 6. Chronic severe peripheral vascular disease. 7. Heavy tobacco use disorder - just quit. HOSPITAL COURSE: A 66-year-old male with multiple medical problems who had been treated as an outpatient with increase in his diuretics and in increase in his potassium dose. He ran out of his potassium and the pharmacy would not fill his potassium dose and there was a delay of about 3-4 days when he was off potassium, but continuing to take the increase in the diuretic. He therefore became weak and had cramps and muscle weakness and was found to have a potassium of 1.9 on admission. He has also had acute renal failure with a BUN of 45 and 2.4. His potassium was replaced over the course in the last 2 days and he was gently rehydrated. His kidney function improved significantly with his discharge BUN of 27/1.5 and his discharge potassium of 3.3. PHYSICAL EXAMINATION: VITAL SIGNS: On the day of discharge, his blood pressure was 111/67, pulse 89, respirations 20, temperature 97.7, pulse ox 96% on room air. His weight was not done today ____ discharge weight from yesterday was 207.19. GENERAL: His color is improved. HEENT: Tongue was moist. LUNGS: Clear. CARDIOVASCULAR: Regular rhythm and rate. EXTREMITIES: With still decreased edema, but evidence of peripheral vascular disease. DISPOSITION: To home. He will go home on increased potassium of 40 mEq b.i.d. and will not go home on metolazone as per Dr. Snyder, body press operator at [facility]. He will continue with the Lasix 40 mg b.i.d. For other medications, please see [facility]. PEYTON MCGOWAN DO DR: GIGI/leo JOB#: [id number] / [id number]
== END 2016-09-27 09:20 | disposition home or self-care (01) | DRG 640 ==
LOC: ER 18:26 → ICU 21:15
PROVIDERS: ADMIT Family Medicine; ATTEND Family Medicine
DX: E87.6 Hypokalemia (principal); N17.0 Acute kidney failure with tubular necrosis; I50.32 Chronic diastolic (congestive) heart failure; E78.00 Pure hypercholesterolemia, unspecified; E78.5 Hyperlipidemia, unspecified; E86.0 Dehydration; I25.10 Atherosclerotic heart disease of native coronary artery without angina pectoris; M54.5 Low back pain; I11.0 Hypertensive heart disease with heart failure; J44.9 Chronic obstructive pulmonary disease, unspecified; I73.9 Peripheral vascular disease, unspecified; G89.29 Other chronic pain; I95.9 Hypotension, unspecified; N18.9 Chronic kidney disease, unspecified; T50.2X5A Adverse effect of carbonic-anhydrase inhibitors, benzothiadiazides and other diuretics, initial encounter; Z82.5 Family history of asthma and other chronic lower respiratory diseases; Z86.73 Personal history of transient ischemic attack (TIA), and cerebral infarction without residual deficits; Z95.5 Presence of coronary angioplasty implant and graft; Z87.891 Personal history of nicotine dependence; Z87.01 Personal history of pneumonia (recurrent); Y92.89 Other specified places as the place of occurrence of the external cause; Z88.8 Allergy status to other drugs, medicaments and biological substances
CPT/HCPCS: 36415; 71010; 80048; 80053; 83735; 83880; 84484; 85027; 87641; 93005; 94640; 96365; 96366; J3480; J7613; J7626; J8597; 99291-25; J7030

== ENCOUNTER 2016-10-03 14:31 | Inpatient (IN) | payer MEDICARE, BC ==
[~2016-10-03] VITALS: Ht 175.3 cm; Wt 99.3 kg
[~2016-10-03 14:31] MED LIST changes: +ASPI-630 PO; +ATOR40TA59 PO; +CLOP75TA; +FURO40TA4 PO; +METO25TA4 PO; +METO5TAB4 PO; +MORP60CA17; +NITR0.4T22; +PRAM1TAB PO; +SUMA100T4 PO; +TAMS0.4C2 PO; +TOPI50TA8 PO
[2016-10-03] MEDS ORDERED: IV NORMAL SALINE 1,000ML 1,000 ML IV SCH (14:38)
[2016-10-03] MEDS ORDERED: 0.9 % SODIUM CHLORIDE 10 ML DISP.SYRIN. IV PRN (14:45)
--- NOTE | 2016-10-03 15:08 | PHYS DOC ---
Past History Past Medical History: Bronchitis, CAD, CHF, COPD, High Cholesterol, Heart Disease, Hypertension, Vascular Disease Past Surgical History: Other Additional Past Surgical Histo: patient has had stenting bilaterally of his lower iliac trunks, heart stent Smoking: Cigarettes, Less than 1pk/day Alcohol Use: Occasionally Drug Use: None Adult General Chief Complaint Chief Complaint: lower extremity pain and generalized weakness HPI HPI Patient is a pleasant 66-year-old male with a history of cardiac disease, lower extremity peripheral vascular disease requiring revascularization, hypertension , hypercholesteremia, COPD and bouts of hypokalemia. Patient was his recent seen and hospitalized here at our facility and released last week Saturday for similar presentation. This presentation is progressively worse. Patient claims that he said recently undergone revascularization of his iliac stents bilaterally. Since that time he said increased swelling and pain in his lower legs as well as a 45 pound weight gain. He describes distention of his abdomen with no abdominal pain just generalized weakness. Patient arose this morning with this generalized weakness will come from sleep he noted that he was very tired, had difficulty exerting any kind of activity today. Patient also describes some vertiginous-like symptoms going from laying down to a sitting or standing position. It creates a sense of movement a spinning sensation, that causes intense nausea without vomiting. Patient denies any chest pain but has some exertional shortness of breath. He denies any diarrhea, fevers, chills, recent URI symptoms. He does recall a recent history of bronchitis for which he is now quit smoking for approximately 5 weeks. Increase in his Lasix in attempt to remove this extra fluid from his body. Patient is under the care of a adobe cq developer named . patient is presently on aspirin and Plavix daily. Differential diagnosis for chest pain: Pericarditis, myocarditis, endocarditis, pneumothorax, pneumonia, aortic dissection, esophageal spasm, esophagitis, peptic ulcer disease, acute coronary syndrome, mediastinitis, Boerhaave syndrome , musculoskeletal chest wall pain, costochondritis, intercostal strain, rib fracture, pulmonary contusion, pneumonitis, pleural effusion, pericardial effusion, pericardial tamponode, and pleurisy. Considered upon arrival. My differential diagnosis for peripheral edema included but not limited to the following. Renal sodium retention, nephrotic syndrome, idiopathic edema secondary to volume to patient, drug-induced edema concerning vasodilators, NSAIDs, venous insufficiency or thromboembolism, pitting edema from lymphatic obstruction or hypothyroidism, ascites associated with abdominal distention, central venous pressure increases secondary to cirrhosis, congestive heart failure, or pericardial heart disease. Order to follow up these etiologies patient had an EKG, chest x-ray ultrasound of the bilateral lower extremities. He will also CMP completed CBC troponin TSH and a urinalysis. Review of Systems Review of Systems Constitutional: Denies fever or chills [] Eyes: Denies change in visual acuity, redness, or eye pain [] HENT: Denies nasal congestion or sore throat [] Respiratory: Denies cough or shortness of breath [] Cardiovascular: No additional information not addressed in HPI [] GI: Denies abdominal pain, bloody stools or diarrhea has complained of intense nausea and vomiting with a spinning sensation. [] : Denies dysuria or hematuria [] Musculoskeletal: Denies back pain or joint pain [] Integument: He does complain of increased swelling of his lower legs bilaterally is itching along his shins bilaterally. Neurologic: Denies headache, focal weakness or sensory changes patient denies dysarthria, focal memory loss or problems speaking. He has generalized weakness in all extremities. Endocrine: Denies polyuria or polydipsia [] Current Medications Current Medications Current Medications Medications (Trade) Dose Ordered Sig/Rosaile Start Time Stop Time Status Last Admin Dose Admin Sodium Chloride (Normal Saline Flush) 10 ml QSHIFT PRN 10/03/16 14:45 UNV Allergies Allergies Allergies Coded Allergies Type Severity Reaction Last Updated Verified acetaminophen Allergy Intermediate 09/26/13 Yes chlorpheniramine Allergy Intermediate 09/26/13 Yes disulfiram Allergy Intermediate 07/03/13 Yes phenylephrine Allergy Intermediate 09/26/13 Yes Physical Exam Physical Exam vital signs reviewed by me demonstrate hypertension Constitutional: Well developed, well nourished, no acute distress, non-toxic appearance. [] HENT: Normocephalic, atraumatic, bilateral external ears normal, very dry mucous membranes, no oral exudates, nose normal. [] Eyes: PERRLA, EOMI, conjunctiva normal, no discharge. [] Neck: Normal range of motion, no tenderness, supple, no stridor. [] Cardiovascular:Heart rate regular rhythm, no murmur [] Lungs & Thorax: Decreased breath sounds bilaterally. No wheezes rhonchi rales or crackles no retractions no accessory muscle usage. Abdomen: Bowel sounds normal, soft, no tenderness, no masses, no pulsatile masses abdomen seems distended but no guarding rebound or organomegaly no Middleton Hoffman sign no Foss's or McBurney's point tenderness palpation. Skin: Warm, dry, impression skin is warm there is multiple areas of erythema and excoriation in the lower extremity's bilaterally there is also significant peripheral edema plus to +3 up to the midthigh with some weeping lesions on the lower right leg. Back: No tenderness, no CVA tenderness. [] Extremities: No tenderness, no cyanosis no clubbing or is some marked peripheral edema. Decreased range of motion secondary to pain in the lower extremity's bilaterally as well as the left upper shoulder as he claims he has a rotator cuff injury Preventing full range of motion Neurologic: Alert and oriented X 3, normal motor function, normal sensory function, no focal deficits noted. No dysarthria. Psychologic: Affect normal, judgement normal, mood normal. [] Stroke scale on arrival was 0. 1a. Level of consciousness: 0 = Alert; keenly responsive. 1 = Not alert; but arousable by minor stimulation to obey, answer, or respond. 2 = Not alert; requires repeated stimulation to attend, or is obtunded and requires strong or painful stimulation to make movements (not stereotyped). 3 = Responds only with reflex motor or autonomic effects or totally unresponsive , flaccid, and areflexic. 1b. LOC questions: 0 = Answers both questions correctly. 1 = Answers one question correctly. 2 = Answers neither question correctly. 1c. LOC commands: 0 = Performs both tasks correctly. 1 = Performs one task correctly. 2 = Performs neither task correctly. 2. Best gaze: 0 = Normal. 1 = Partial gaze palsy; gaze is abnormal in one or both eyes, but forced deviation or total gaze paresis is not present. 2 = Forced deviation, or total gaze paresis not overcome by the oculocephalic maneuver. 3. Visual: 0 = No visual loss. 1 = Partial hemianopia. 2 = Complete hemianopia. 3 = Bilateral hemianopia (blind including cortical blindness). 4. Facial palsy: 0 = Normal symmetrical movements. 1 = Minor paralysis (flattened nasolabial fold, asymmetry on smiling). 2 = Partial paralysis (total or near-total paralysis of lower face). 3 = Complete paralysis of one or both sides (absence of facial movement in the upper and lower face). 5. Motor arm: 0 = No drift; limb holds 90 (or 45) degrees for full 10 seconds. 1 = Drift; limb holds 90 (or 45) degrees, but drifts down before full 10 seconds ; does not hit bed or other support. 2 = Some effort against gravity; limb cannot get to or maintain (if cued) 90 ( or 45) degrees, drifts down to bed, but has some effort against gravity. 3 = No effort against gravity; limb falls. 4 = No movement. UN = Amputation or joint fusion, explain: 5a. Left arm 5b. Right arm 6. Motor le = No drift; leg holds 30-degree position for full 5 seconds. 1 = Drift; leg falls by the end of the 5-second period but does not hit bed. 2 = Some effort against gravity; leg falls to bed by 5 seconds, but has some effort against gravity. 3 = No effort against gravity; leg falls to bed immediately. 4 = No movement. UN = Amputation or joint fusion, explain: 6a. Left leg 6b. Right leg 7. Limb ataxia: 0 = Absent. 1 = Present in one limb. 2 = Present in two limbs. UN = Amputation or joint fusion 8. Sensory: 0 = Normal; no sensory loss. 1 = Ibsl-mb-opgtbpnz sensory loss; patient feels pinprick is less sharp or is dull on the affected side; or there is a loss of superficial pain with pinprick , but patient is aware of being touched. 2 = Severe to total sensory loss; patient is not aware of being touched in the face, arm, and leg. 9. Best language: 0 = No aphasia; normal. 1 = Yacu-hs-vijyjkpq aphasia; some obvious loss of fluency or facility of comprehension, without significant limitation on ideas expressed or form of expression. Reduction of speech and/or comprehension, however, makes conversation about provided materials difficult or impossible. For example, in conversation about provided materials, examiner can identify picture or naming card content from patient's response. 2 = Severe aphasia; all communication is through fragmentary expression; great need for inference, questioning, and guessing by the listener. Range of information that can be exchanged is limited; listener carries burden of communication. Examiner cannot identify materials provided from patient response. 3 = Mute, global aphasia; no usable speech or auditory comprehension. 10. Dysarthria: 0 = Normal. 1 = Dkki-to-akpyrvbd dysarthria; patient slurs at least some words and, at worst , can be understood with some difficulty. 2 = Severe dysarthria; patient's speech is so slurred as to be unintelligible in the absence of or out of proportion to any dysphasia, or is mute/anarthric. UN = Intubated or other physical barrier, explain: 11. Extinction and inattention (formerly neglect): 0 = No abnormality. 1 = Visual, tactile, auditory, spatial, or personal inattention or extinction to bilateral simultaneous stimulation in one of the sensory modalities. 2 = Profound maddison-inattention or extinction to more than one modality; does not recognize own hand or orients to only one side of space. Current Patient Data Lab Results Laboratory Tests Test 10/03/16 15:50 White Blood Count 7.9 x10^3/uL (4.0-11.0) Red Blood Count 4.42 x10^6/uL (4.30-5.70) Hemoglobin 13.6 g/dL (13.0-17.5) Hematocrit 40.5 % (39.0-53.0) Mean Corpuscular Volume 92 fL (79-100) Mean Corpuscular Hemoglobin 31 pg (25-35) Mean Corpuscular Hemoglobin Concent 34 g/dL (31-37) Red Cell Distribution Width 14.5 % (11.5-14.5) Platelet Count 149 x10^3/uL (140-400) Neutrophils (%) (Auto) 63 % (31-73) Lymphocytes (%) (Auto) 26 % (24-48) Monocytes (%) (Auto) 10 % (0-9) H Eosinophils (%) (Auto) 1 % (0-3) Basophils (%) (Auto) 0 % (0-3) Neutrophils # (Auto) 5.0 x10^3uL (1.8-7.7) Lymphocytes # (Auto) 2.0 x10^3/uL (1.0-4.8) Monocytes # (Auto) 0.8 x10^3/uL (0.0-1.1) Eosinophils # (Auto) 0.1 x10^3/uL (0.0-0.7) Basophils # (Auto) 0.0 x10^3/uL (0.0-0.2) Sodium Level 139 mmol/L (136-145) Potassium Level 2.4 mmol/L (3.5-5.1) *L Chloride Level 97 mmol/L (98-107) L Carbon Dioxide Level 35 mmol/L (21-32) H Anion Gap 7 (6-14) Blood Urea Nitrogen 25 mg/dL (8-26) Creatinine 1.9 mg/dL (0.7-1.3) H Estimated GFR (Cockcroft-Gault) 35.6 BUN/Creatinine Ratio 13 (6-20) Glucose Level 110 mg/dL (70-99) H Calcium Level 9.0 mg/dL (8.5-10.1) Magnesium Level 2.0 mg/dL (1.8-2.4) Total Bilirubin 0.5 mg/dL (0.2-1.0) Aspartate Amino Transferase (AST) 21 U/L (15-37) Alanine Aminotransferase (ALT) 22 U/L (16-63) Alkaline Phosphatase 97 U/L (46-116) Creatine Kinase 211 U/L (39-308) Creatine Kinase MB (Mass) 5.9 ng/mL (0.0-3.6) H Creatine Kinase MB Relative Index 2.8 % (0-4) Troponin I Quantitative < 0.017 ng/mL (0-0.055) UC-Qqi-V-Type Natriuretic Peptide 251 pg/mL (0-124) H Total Protein 7.4 g/dL (6.4-8.2) Albumin 3.2 g/dL (3.4-5.0) L Albumin/Globulin Ratio 0.8 (1.0-1.7) L Lipase 70 U/L (73-393) L EKG EKG [] Patient's EKG timed at 2:50 PM 10/03/[address] Lee demonstrated heart rate of 83 normal sinus rhythm. Normal 0164 QRS width is 108 QTC is 478 which is mildly increased consistent with an 8 QT prolongation. He's had a Q- wave in the inferior leads lead 3 and aVF which is likely old. There is some nonseptic T-wave flattening in the lateral leads but no sT-segment elevation consistent with acute coronary ischemia. Radiology/Procedures Radiology/Procedures [] [address] [place] [id number] IMAGING REPORT Signed PATIENT: MAURICE BRADEN ACCOUNT: [id number] : 1950 LOCATION: ER AGE: 66 SEX: M EXAM STATUS: REG ER ORD. PHYSICIAN: SHARON LEE MD REASON: generalized weakness PROCEDURE: CT HEAD WO CONTRAST CT head without contrast 10/03/2016 at 1505 hours Indication: Generalized weakness Comparison: None available Technique: Multiple axial noncontrast CT images of the head were obtained from the skull base through the vertex. Findings: The ventricles, sulci and basal cisterns are within normal limits. Middleton-white matter differentiation is normal. There is no acute intracranial hemorrhage. There is no mass, mass effect or midline shift. Posterior fossa is within normal limits. Sellar and suprasellar cistern appear normal. Orbits are normal in appearance. Paranasal sinuses are well aerated. Mastoid air cells are well aerated. Scalp and calvaria are normal. Impression: There is no acute intracranial hemorrhage. PQRS Compliance Statement: One or more of the following individualized dose reduction techniques were utilized for this examination: 1. Automated exposure control 2. Adjustment of the mA and/or kV according to patient size 3. Use of iterative reconstruction technique DICTATED AND SIGNED BY: MARY DE LUNA MD DATE: 10/03/161518 CC: SHARON LEE MD; FROY DE LOS SANTOS MD ~ [address] [id number] IMAGING REPORT Signed PATIENT: MAURICE BRADEN ACCOUNT: [id number] : 1950 LOCATION: ER AGE: 66 SEX: M EXAM STATUS: REG ER ORD. PHYSICIAN: SHARON LEE MD REASON: weakness PROCEDURE: CHEST PA & LATERAL Chest radiograph 10/03/2016 at 1501 hours. Indication: Weakness Comparison: Chest radiograph 09/25/2016 Technique: PA and lateral views of the chest are provided. Findings: Cardiomediastinal silhouette is within normal limits. No pleural effusions, pulmonary vascular congestion or pneumothorax. The lungs are clear. Osseous structures are normal. Impression: No acute cardiopulmonary process. DICTATED AND SIGNED BY: MARY DE LUNA MD DATE: 10/03/16 1510 CC: SHARON LEE MD; FROY DE LOS SANTOS MD ~ Course & Med Decision Making Course & Med Decision Making Pertinent Labs and Imaging studies reviewed. (See chart for details) patient present with generalize weakness and shortness of breath.Differential diagnosis : Acute myocardial ischemia, heart failure, cardiac tamponade, bronchospasm, pulmonary embolism, pneumothorax, pulmonary infection i.e. bronchitis or pneumonia, upper airway obstruction, anaphylaxis, aspiration, psychogenic, pulmonary contusion, toxidrome, pneumomediastinum, noncardiogenic pulmonary edema or ARDS, COPD, tuberculosis, cystic fibrosis, asthma, high altitude pulmonary edema, valvular dysfunction, cardiac dysrhythmia, stroke, neuromuscular diseases like myasthenia gravis gravis, ALS, Guillain-Iyer syndrome, metabolic acidosis to include diabetic ketoacidosis, sepsis, and obstructive disorders like massive obesity was considered upon arrival. Patient had an immediate EKG, chest x-ray, head CT, a stroke screen, troponin, urinalysis, CMP, CBC, TSH and magnesium level completed upon arrival. Time is now 3:45 PM Patient tells me that their symptoms given during CC are improved. We reviewed radiology reports with patient demonstrated no injury to the brain or stroke or mass lesion. Patient is resting very quietly weighs waiting for labs to be completed. Patient's blood is been sent and is still pending at 4 PM. Patient tells me that their symptoms given during CC are improved. Time is now 4 :45 PM We reviewed labs and radiology reports with patient and it is clear that even his Lasix usage is BUN/creatinine are creasing again and his potassium is beginning to fall. This definitely could be contributing to his weakness. There is no evidence of congestive heart failure on chest x-ray, or proBNP. Patient does not demonstrate a UTI, he is demonstrating dehydration, without evidence of acute coronary ischemia. Although his EKG is not normal he is not having a heart attack at this time. We'll continue to screen him for cardiac injury. Meat Packer note: Internal medicine paged at approximately 4:40 PM Meat Packer called at of the service Dr. Rosita PATRICK Consult called back at 4:42 PM Discussed the case I presented and they agreed with admission. Time of acceptance 4:42 PM Impression: Hypokalemia, generalized weakness, renal insufficiency, generalized debility [] Dragon Disclaimer Dragon Disclaimer This chart was dictated in whole or in part using Voice Recognition software in a busy, high-work load, and often noisy Emergency Department environment. It may contain unintended and wholly unrecognized errors or omissions. Departure Departure: Impression: Primary Impression: Hypokalemia Additional Impressions: Renal insufficiency Generalized weakness Disposition: ADMITTED INPATIENT Admitting Physician: Pan Concepcion Condition: GUARDED Referrals: FROY DE LOS SANTOS MD (PCP) Problem Qualifiers SHARON LEE MD Oct 03, 2016 15:08
--- NOTE | 2016-10-03 15:13 | RAD ---
Chest radiograph 10/03/2016 at 1501 hours. Indication: Weakness Comparison: Chest radiograph 09/25/2016 Technique: PA and lateral views of the chest are provided. Findings: Cardiomediastinal silhouette is within normal limits. No pleural effusions, pulmonary vascular congestion or pneumothorax. The lungs are clear. Osseous structures are normal. Impression: No acute cardiopulmonary process.
--- NOTE | 2016-10-03 15:22 | RAD ---
CT head without contrast 10/03/2016 at 1505 hours Indication: Generalized weakness Comparison: None available Technique: Multiple axial noncontrast CT images of the head were obtained from the skull base through the vertex. Findings: The ventricles, sulci and basal cisterns are within normal limits. Middleton-white matter differentiation is normal. There is no acute intracranial hemorrhage. There is no mass, mass effect or midline shift. Posterior fossa is within normal limits. Sellar and suprasellar cistern appear normal. Orbits are normal in appearance. Paranasal sinuses are well aerated. Mastoid air cells are well aerated. Scalp and calvaria are normal. Impression: There is no acute intracranial hemorrhage. PQRS Compliance Statement: One or more of the following individualized dose reduction techniques were utilized for this examination: 1. Automated exposure control 2. Adjustment of the mA and/or kV according to patient size 3. Use of iterative reconstruction technique
--- NOTE | 2016-10-03 15:47 | RAD ---
Bilateral lower extremity venous ultrasound, 10/03/2016: History: Bilateral leg swelling and pain Duplex evaluation of the deep veins in the lower extremities was performed including grayscale, color-flow and spectral Doppler analysis. The femoral and popliteal veins demonstrate normal compressibility and normal responses to distal augmentation maneuvers. Color imaging of those vessels shows no evidence of intraluminal clot. The visualized deep veins in both calves are patent. IMPRESSION: There is no sonographic evidence of deep vein thrombosis in either lower extremity.
[2016-10-03 16:06] LABS: BASO % 0 % (0-3); EOS # 0.1 x10^3/uL (0.0-0.7); EOS % 1 % (0-3); HEMATOCRIT 40.5 % (39.0-53.0); HEMOGLOBIN 13.6 g/dL (13.0-17.5); LYMPH % 26 % (24-48); MEAN CORPUSCULAR HEMOGLOBIN 31 pg (25-35); MEAN CORPUSCULAR HGB CONC 34 g/dL (31-37); MEAN CORPUSCULAR VOLUME 92 fL (79-100); MONO # 0.8 x10^3/uL (0.0-1.1); MONO % 10 % (0-9); NEUT % 63 % (31-73); PLATELET COUNT 149 x10^3/uL (140-400); RED BLOOD COUNT 4.42 x10^6/uL (4.30-5.70); RED CELL DISTRIBUTION WIDTH 14.5 % (11.5-14.5); WHITE BLOOD COUNT 7.9 x10^3/uL (4.0-11.0)
--- NOTE | 2016-10-03 16:21 | EKG ---
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
[2016-10-03 16:23] LABS: ALBUMIN 3.2 g/dL (3.4-5.0); ALBUMIN/GLOBULIN RATIO 0.8 (1.0-1.7); CREATININE 1.9 mg/dL (0.7-1.3); GFR 35.6; TOTAL BILIRUBIN 0.5 mg/dL (0.2-1.0); TOTAL PROTEIN 7.4 g/dL (6.4-8.2)
[2016-10-03 16:25] LABS: POTASSIUM 2.4 mmol/L (3.5-5.1)
[2016-10-03] MEDS: POTASSIUM CHLORIDE 20MEQ 100 ML IV SCH ×2 (17:00→18:12)
[2016-10-03] MEDS ORDERED: ONDANSETRON PF 4 MG/2 ML VIAL. IV PRN ×2 (17:00→17:45)
[2016-10-03 17:35] VITALS: BP 105/71
[2016-10-03] MEDS ORDERED: CYCLOBENZAPRINE 10 MG TABLET. PO PRN (18:00)
[2016-10-03] MEDS: POTASSIUM CHLORIDE 20 MEQ TABLET.ER. PO SCH ×2 (18:11→19:40)
[2016-10-03] MEDS: IV NORMAL SALINE 1,000ML 1,000 ML IV SCH ×2 (18:12→21:04)
[2016-10-03 18:28] LABS: BILIRUBIN,URINE NEG (NEG); CLARITY,URINE CLEAR; COLOR,URINE YELLOW; GLUCOSE,URINE NEG (NEG)
[2016-10-03 18:29] LABS: BACTERIA,URINE 0 /HPF (0-FEW); NITRITE,URINE NEG (NEG); SQUAMOUS EPITHELIAL CELL,UR FEW /LPF; UROBILINOGEN,URINE 0.2 mg/dL (0.2 mg/dL); WBC,URINE OCC /HPF (0-4)
[2016-10-03] MEDS ORDERED: PRAMIPEXOLE 0.5 MG TABLET. ONE (21:00)
[2016-10-03] MEDS: CYCLOBENZAPRINE 10 MG TABLET. PO SCH (21:04)
[2016-10-03] MEDS: ATORVASTATIN CALCIUM 20 MG TABLET PO SCH (21:04)
[2016-10-03] MEDS: PRAMIPEXOLE 0.5 MG TABLET. PO SCH (21:05)
[2016-10-03] MEDS: MORPHINE ER 60 MG TABLET.ER PO SCH (21:05)
[2016-10-03] MEDS: METOPROLOL TART IMMED RELEASE 25 MG TABLET PO SCH (21:06)
[2016-10-03 21:07] VITALS: BP 109/67
[2016-10-03 22:11] LABS: CALCIUM 8.7 mg/dL (8.5-10.1); CREATININE 1.7 mg/dL (0.7-1.3); GFR 40.5
[2016-10-03 22:18] LABS: POTASSIUM 2.9 mmol/L (3.5-5.1)
[2016-10-03] MEDS: POTASSIUM CHLORIDE 20 MEQ/15 ML ORAL LIQUID. PO SCH (22:24)
--- NOTE | 2016-10-04 00:46 | ACF ---
Admission Criteria Forms HYPONATREMIA; HYPERNATREMIA; HYPOKALEMIA; HYPERKALEMIA; HYPOCALCEMIA; HYPERCALCEMIA Clinical Indications for Inpatient Care (Place 'X' for any and all applicable criteria): Ongoing inpatient care may be indicated for ANY ONE of the following [G](1)(2)(3 )(5): [ ]I. Hyponatremia with ANY ONE of the following: [ ]a) Sodium less than 130 mEq/L (mmol/L) (new) (6)(22) [ ]b) Sodium less than 135 mEq/L (mmol/L) with ANY ONE of the following: [ ]i) Severe medical etiology requiring inpatient management (eg, heart failure, hypovolemia) [ ]ii) Altered mental status [ ]iii) Seizures [ ]II. Hypernatremia with ANY ONE of the following: [ ]a) Sodium greater than 155 mEq/L (mmol/L) [ ]b) Sodium greater than 150 mEq/L (mmol/L) with ANY ONE of the following: [ ] i) Altered mental status [ ]ii) Seizures [ ]iii) Severe medical etiology (eg, hypovolemia, diabetes insipidus) [ ]iv) Severe weakness [ ]v) Severe medical etiology (eg, hemolysis, infection, drug overdose) [X]III. Hypokalemia with ANY ONE of the following: [X]a) Potassium less than 2.5 mEq/L (mmol/L) despite outpatient and emergency treatment [ ]b) Potassium less than 3.0 mEq/L (mmol/L) with ANY ONE of the following: [ ]i) Weakness [ ]ii) Cardiac abnormality (eg, arrhythmia, conduction disturbance) [ ]iii) Cardiac ischemia [ ]iv) Ileus [ ]v) Ongoing medical cause requiring inpatient management. ( e.g., acute renal wasting, SIADH) [ ]vi) Other severe symptoms [ ] IV. Hyperkalemia with ANY ONE of the following: [ ]a) Potassium greater than 6.5 mEq/L (mmol/L) [ ]b) Potassium greater than 5 mEq/L (mmol/L) with ANY ONE of the following: [ ]i) Severe ECG findings [H] [ ]ii) Acute worsening of renal failure (creatinine greater than 2.5 mg/dL (221 micromoles/L) or significant elevation for age and size) [ ] V. Hypocalcemia with ANY ONE of the following: [ ]a) Calcium less than 7 mg/dL (1.75 mmol/L) despite outpatient and emergency treatment(19) [ ]b) Calcium less than 8 mg/dL (2 mmol/L) with significant symptoms or findings; examples include: [ ]i) Cardiac abnormality (eg, arrhythmia or conduction disturbance) [ ]ii) Altered mental status [ ]iii) Seizures [ ]iv) Breathing difficulty [ ]v) Muscle spasms [ ]. Hypercalcemia with ANY ONE of the following: [ ]a) Calcium greater than 14 mg/dL (3.5 mmol/L) [ ]b) Calcium greater than 12 mg/dL (3 mmol/L) with ANY ONE of the following: [ ]i) Significant dehydration or hypovolemia as indicated by ANY ONE of the following(2): [ ]1. Clinically significant dehydration as indicated by ANY ONE of the following: [ ]A. Acute loss of weight from baseline (5% of body weight in adults, 9% in pediatric patients) [ ]B. Hemodynamic instability [ ]C. Acute renal failure [ ]D. Serum sodium greater than 150 mEq/L (mmol/L) [ ]2) Dehydration that is persistent indicated by ALL of the following: [ ]A. Oral rehydration therapy not tolerated or insufficient to adequately correct dehydration [ ]B. Appropriate intravenous treatment (eg, fluids ) does not readily correct dehydration ie, after 12 to 24 hours of treatment) [ ]ii) Significant symptoms or findings; examples include: [ ]1) Altered mental status [ ]2) Cardiac abnormality (eg, arrhythmia, conduction disturbance) [ ]3) Cardiac abnormality (eg, arrhythmia, conduction disturbance) The original [facility] content created by [email or web address] has been revised. The portions of the content which have been revised are identified through the use of italic text or in bold, and [email or web address] has neither reviewed nor approved the modified material. All other unmodified content is copyright [facility] [email or web address] Please see references footnoted in the original [facility] [email or web address] edition 2016 Admission Criteria Met?: Yes RAHEL LEE Oct 04, 2016 00:45
[2016-10-04] MEDS: POTASSIUM CHLORIDE 20 MEQ/15 ML ORAL LIQUID. PO SCH ×3 (02:18→20:27)
[2016-10-04] MEDS: HYDROcodone/APAP 10/325 1 TAB TABLET PO PRN ×2 (02:18→23:42)
[2016-10-04 03:59] LABS: BASO % 1 % (0-3); EOS # 0.2 x10^3/uL (0.0-0.7); EOS % 3 % (0-3); HEMATOCRIT 39.2 % (39.0-53.0); HEMOGLOBIN 12.9 g/dL (13.0-17.5); LYMPH # 1.9 x10^3/uL (1.0-4.8); LYMPH % 33 % (24-48); MEAN CORPUSCULAR HEMOGLOBIN 31 pg (25-35); MEAN CORPUSCULAR HGB CONC 33 g/dL (31-37); MEAN CORPUSCULAR VOLUME 94 fL (79-100); MONO # 0.6 x10^3/uL (0.0-1.1); MONO % 11 % (0-9); NEUT # 3.1 x10^3uL (1.8-7.7); NEUT % 53 % (31-73); PLATELET COUNT 132 x10^3/uL (140-400); RED BLOOD COUNT 4.19 x10^6/uL (4.30-5.70); RED CELL DISTRIBUTION WIDTH 14.4 % (11.5-14.5); WHITE BLOOD COUNT 5.8 x10^3/uL (4.0-11.0)
[2016-10-04 04:45] LABS: ALBUMIN 2.8 g/dL (3.4-5.0); ALBUMIN/GLOBULIN RATIO 0.7 (1.0-1.7); CALCIUM 8.7 mg/dL (8.5-10.1); CREATININE 1.6 mg/dL (0.7-1.3); GFR 43.5; POTASSIUM 4.3 mmol/L (3.5-5.1); TOTAL BILIRUBIN 0.4 mg/dL (0.2-1.0); TOTAL PROTEIN 6.6 g/dL (6.4-8.2)
[2016-10-04 05:00] VITALS: BP 96/58
[2016-10-04] MEDS: METOPROLOL TART IMMED RELEASE 25 MG TABLET PO SCH ×2 (07:38→20:27)
[2016-10-04] MEDS: CLOPIDOGREL BISULFATE 75 MG TABLET PO SCH (07:45)
[2016-10-04] MEDS: TOPIRAMATE 25 MG TABLET. PO SCH (07:45)
[2016-10-04] MEDS: PANTOPRAZOLE 40 MG TABLET. PO SCH (07:45)
[2016-10-04] MEDS: CYCLOBENZAPRINE 10 MG TABLET. PO SCH ×3 (07:45→20:26)
[2016-10-04] MEDS: TAMSULOSIN 0.4 MG CAP.ER.24H. PO SCH (07:45)
[2016-10-04] MEDS: ASPIRIN 81 MG TAB.CHEW PO SCH (07:45)
[2016-10-04] MEDS: MORPHINE ER 60 MG TABLET.ER PO SCH ×2 (07:46→20:26)
[2016-10-04] MEDS: IV NORMAL SALINE 1,000ML 1,000 ML IV SCH (08:50)
[2016-10-04] MEDS ORDERED: PRAMIPEXOLE 0.5 MG TABLET. ONE (09:00)
[2016-10-04] MEDS ORDERED: TOPIRAMATE 25 MG TABLET. ONE (09:00)
[2016-10-04 11:00] VITALS: BP 98/66
[2016-10-04 13:03] LABS: CALCIUM 8.6 mg/dL (8.5-10.1); CREATININE 1.3 mg/dL (0.7-1.3); GFR 55.2; POTASSIUM 3.9 mmol/L (3.5-5.1)
[2016-10-04 15:53] VITALS: BP 109/71
--- NOTE | 2016-10-04 18:40 | HP ---
ADMIT DATE: HISTORY OF PRESENT ILLNESS: The patient is a 66-year-old male patient who was admitted with complaint of lower extremity pain and generalized weakness and apparently was evaluated in the Emergency Room and was again found to be hypokalemic. His potassium was only 2.4 mEq per liter. He was on furosemide 40 mg twice a day and potassium 40 mEq twice a day. He was basically admitted to replenish his potassium and to adjust his medications such that he does not have recurrent episodes of severe hypokalemia. PAST MEDICAL HISTORY: Significant for coronary artery disease, hypertension, peripheral arterial disease, hyperlipidemia, chronic obstructive pulmonary disease and congestive heart failure. He has also chronic low back pain, multiple lumbar surgeries with plans for repeat surgery in the near future. He has also rotator cuff tear, the left shoulder awaiting surgery. He has prior shoulder surgery on the right and left knee surgery. His echocardiogram done in 2016, revealed normal left ventricular ejection fraction and wall motion. Recent echo and stress testing as read as cardiac catheterization. Aortogram records were requested, but not available. FAMILY HISTORY: Significant for father with emphysema. Mother with meningitis. SOCIAL HISTORY: He is , used to be a heavy smoker, quit about a month ago. He drinks alcohol occasionally, but does not use any illicit drugs. ALLERGIES: HE IS ALLERGIC TO CHLORPHENIRAMINE, DISULFIRAM, AND PHENYLEPHRINE. MEDICATIONS: He is currently on following medications: He is on aspirin 81 mg once a day, atorvastatin calcium 80 mg at bedtime, Plavix 75 mg once a day, Flexeril 10 mg 3 times a day, Advair Diskus 250/50 one inhalation once a day, furosemide 40 mg twice a day, hydrocodone/APAP 10/325 one tablet every 6 hours, metoprolol tartrate 25 mg twice a day, morphine sulfate 60 mg extended release twice a day, nitroglycerin 0.4 mg sublingually as needed, Protonix 40 mg once a day, potassium chloride 40 mEq twice a day, pramipexole ____ 1 mg at bedtime, sumatriptan succinate 100 mg daily p.r.n. for headache. He is on Topiramate 50 mg daily and Flomax 0.4 mg at bedtime for benign prostatic hypertrophy. REVIEW OF SYSTEMS: The patient denied any blurring of vision, cataract, glaucoma or macular degeneration. Denied any earache, tinnitus or sensorineural deafness. Denied any nosebleeds, stuffy nose or postnasal drip. Denied any sore throat, sore tongue, toothache, hoarseness of voice or difficulty swallowing. Denied any nausea, vomiting, diarrhea or constipation. Did complain of pain in the left upper quadrant that is stabbing in nature, aggravated by taking a deep breath. Denied any diarrhea or constipation. Denied any hematemesis, melena or hematochezia. Denied any dysuria, frequency or hematuria. Denied any chest pain. Did complain of shortness of breath, but denied any orthopnea or paroxysmal nocturnal dyspnea. Denied any cough, phlegm or hemoptysis. Denied any dizziness, lightheadedness, or vertigo. PHYSICAL EXAMINATION: GENERAL: On arrival to the Emergency Room, he looked well and was clearly in no apparent respiratory distress. There is no pallor, jaundice or cyanosis. No lymphadenopathy, no thyromegaly, no jugular venous distension, but bilateral lower limb edema. VITAL SIGNS: His heart rate was 67, blood pressure was 114/63, temperature was 98.1, respiratory rate was 18 and oxygen saturation was 98% on room air. HEAD, EYES, EARS, NOSE AND THROAT: Showed normocephalic, atraumatic. NECK: Supple. HEART: Showed normal first and second heart sounds with no gallop, rub or murmur. CHEST: Clear to auscultation. No crepitation or rhonchi. ABDOMEN: Distended, soft, nontender. No guarding or rigidity. No organomegaly. Hernial orifices intact. Bowel sounds normal. NEUROLOGIC: He was awake, alert, responding appropriately. Cranial nerves intact. He moves extremities without difficulty, ambulates without assistance or assistive devices. LABORATORY AND DIAGNOSTIC DATA: On admission showed that his white cell count was 7900, hemoglobin 13.6, hematocrit 40, MCV 92, and platelet count of 149,000 with normal manual differential. His serum sodium was 140, potassium 2.9, chloride is 102, bicarbonate 36, anion gap of 2, BUN 24, creatinine 1.7. In fact on arrival, his potassium was only 2.4, chloride was 97, bicarbonate 35, anion gap of 7, BUN 25, creatinine 1.9, estimated GFR was 35 mL per minute. His glucose was 110, calcium was 9, magnesium 2. Total bilirubin, AST, ALT, alkaline phosphatase were normal. His first set of cardiac enzymes showed a troponin to be less than 0.017. Beta natriuretic peptide was ____. Total protein was 7.4, albumin was 3.2 and lipase was 70. His urinalysis showed the urine was yellow, clear with a pH of 7.5, specific gravity 1.015. The urine was negative for protein, glucose, ketones. There was small amount of blood, negative for nitrite and leukocyte esterase. There was rbc's 0, occasional wbc's, very few to no bacteria. His chest x-ray showed that he has cardiomediastinal silhouette is within normal limits. No pleural effusion, pulmonary vascular congestion or pneumothorax. The lungs are clear. Osseous structures are normal. He has Doppler ultrasound of both lower extremities showed that he has no sonographic evidence of deep vein thrombosis in either lower extremity. CT scan of the head showed that the ventricles, sulci and basilar cisterns are within normal limits. The castro white matter differentiation is normal. There is no acute intracranial hemorrhage. There is no mass, mass effect or midline shift. Posterior fossa is within normal limits. Sellar and suprasellar cisterns appear normal. Orbits are normal in appearance. Paranasal sinuses are well aerated. Mastoid air cells are well aerated. Scalp and ____ are normal. ASSESSMENT AND PLAN: The patient was admitted to replenish his potassium and clearly extremely hypokalemic with a potassium of 2.4, has [id number] renal insufficiency, generalized weakness. Also, his weight on admission was 213 pounds. We will obviously continue with his current medications and monitor his labs closely. We will also consult Dr. Amin as to his best management in terms of his diuretics and potassium supplement. LUIS CARLOS BURNHAM MD DR: BERRY/leo JOB#: [id number] / [id number]
[2016-10-04 19:07] VITALS: BP 129/76
[2016-10-04] MEDS: PRAMIPEXOLE 0.5 MG TABLET. PO SCH (20:26)
[2016-10-04] MEDS: ATORVASTATIN CALCIUM 20 MG TABLET PO SCH (20:27)
[2016-10-04 23:29] VITALS: BP 102/63
--- NOTE | 2016-10-05 03:16 | PN ---
DATE: SUBJECTIVE: The patient is sitting on the edge of the bed comfortably in no apparent distress. On questioning him further, he stated that he has been __ elevated since 2007. He denied is not something that started recently. Clinically, he does not seem to be in any shortness of breath as well as radiologically his x-ray showed no evidence of congestive heart failure. His BNP was only 250. He has no evidence of myocardial infarction and his low potassium and high creatinine in our reflection that he is being over diuresed, and therefore, I spoke with Dr. Amin and plan was to cut down his Lasix to only 40 mg once a day and we held his Lasix today and replenish his potassium. PHYSICAL EXAMINATION: GENERAL: When I examined him this afternoon, he looked well and was clearly in no apparent respiratory distress, pale. No jaundice, cyanosis, or thyromegaly. No jugular venous distention. No limb edema. VITAL SIGNS: His heart rate was 75, blood pressure was 98/66, temperature was 98, respiratory rate was 18 and oxygen saturation was 96%. HEAD, EYES, EARS, NOSE AND THROAT: Normocephalic, atraumatic. NECK: Supple. HEART: Showed normal first and second heart sounds with no gallop, rub or murmur. CHEST: Clear to auscultation. No crepitation or rhonchi. ABDOMEN: Distended, soft, nontender. NEUROLOGIC: He is awake, alert, responding appropriately. Cranial nerves intact. He moves extremities without difficulty. LABORATORY DATA: This morning showed a serum sodium 140, potassium 3.9, chloride 105, bicarbonate 30, anion gap of 5, BUN 19, creatinine 1.3. Estimated GFR was 65 mL per minute. His glucose 119, calcium was 8.6. His white cell count was 5800, hemoglobin 12.9, hematocrit 39, MCV 94, and platelet count 232,000. ASSESSMENT: Hypokalemia, improved, acute on chronic kidney injury, improving. The patient has chronic diastolic congestive heart failure. He is clinically well compensated. Weakness and generalized debility probably aggravated by low potassium. I did speak with Dr. Amin and plan is to replenish her potassium, repeat his labs tomorrow and we will discharge him while on Lasix 40 mg once a day and potassium chloride, and we will decide on further management accordingly. LUIS CARLOS BURNHAM MD DR: Lorene JOB#: [id number] / [id number]
[2016-10-05 05:11] VITALS: BP 115/65
[2016-10-05 06:29] LABS: ALBUMIN 3.1 g/dL (3.4-5.0); ALBUMIN/GLOBULIN RATIO 0.8 (1.0-1.7); CALCIUM 8.9 mg/dL (8.5-10.1); CREATININE 1.3 mg/dL (0.7-1.3); GFR 55.2; POTASSIUM 4.2 mmol/L (3.5-5.1); TOTAL BILIRUBIN 0.3 mg/dL (0.2-1.0); TOTAL PROTEIN 7.1 g/dL (6.4-8.2)
[2016-10-05] MEDS: CYCLOBENZAPRINE 10 MG TABLET. PO SCH (08:33)
[2016-10-05] MEDS: POTASSIUM CHLORIDE 20 MEQ/15 ML ORAL LIQUID. PO SCH (08:33)
[2016-10-05] MEDS: TOPIRAMATE 25 MG TABLET. PO SCH (08:34)
[2016-10-05] MEDS: MORPHINE ER 60 MG TABLET.ER PO SCH (08:34)
[2016-10-05] MEDS: CLOPIDOGREL BISULFATE 75 MG TABLET PO SCH (08:34)
[2016-10-05] MEDS: PANTOPRAZOLE 40 MG TABLET. PO SCH (08:34)
[2016-10-05] MEDS: ASPIRIN 81 MG TAB.CHEW PO SCH (08:34)
[2016-10-05] MEDS: TAMSULOSIN 0.4 MG CAP.ER.24H. PO SCH (08:34)
[2016-10-05] MEDS: METOPROLOL TART IMMED RELEASE 25 MG TABLET PO SCH (08:34)
[2016-10-05] MEDS ORDERED: FUROSEMIDE 40 MG TABLET PO SCH (09:00)
[2016-10-05] MEDS ORDERED: TOPIRAMATE 25 MG TABLET. ONE (09:00)
[2016-10-05 10:57] VITALS: BP 118/71
[2016-10-05] MEDS ORDERED: POTA20TA4 PO (12:38)
[2016-10-05] MEDS ORDERED: FURO40TA4 PO (12:38)
--- NOTE | 2016-10-06 04:56 | DS ---
DATE OF DISCHARGE: 10/05/2016 HISTORY OF PRESENT ILLNESS: The patient is a 66-year-old male patient who has been in and out because of severe hypokalemia. He has been treated with excessive diuresis about 40 mg twice a day, has been admitted twice initially with a potassium 1.9 and at time with a potassium of 2.4. He is clinically and radiologically as well as biochemically not in heart failure and we actually held his Lasix and his serum creatinine came down from 1.9 to 1.3. His potassium had risen from 2.4-4.2 and his BUN is down from 25-17. He denied any orthopnea, paroxysmal nocturnal dyspnea. Denied any cough, phlegm and decision was made after discussion with Dr. Amin, his headstart teacher, to discharge him on 40 mg of Lasix and 20 mEq of potassium chloride three times a day to repeat his labs again on Saturday and to keep his appointment with Dr. Amin on Saturday. PHYSICAL EXAMINATION: GENERAL: When I saw him this afternoon, he was sitting at the edge of the bed comfortably in no apparent respiratory distress, slightly pale, but no jaundice, cyanosis, or thyromegaly. No jugular venous distention but mild bilateral indurated or brawny edema, is nonpitting. VITAL SIGNS: His heart rate was 77, blood pressure was 118/71, temperature was 97.5, respiratory rate 20, and oxygen saturation was 98% on room air. HEAD, EYES, EARS, NOSE AND THROAT: Showed normocephalic, atraumatic. NECK: Supple. HEART: Showed normal first and second heart sounds with no gallop, rub or murmur. CHEST: Clear to auscultation. No crepitation or rhonchi. ABDOMEN: Distended, soft, nontender. NEUROLOGIC: He was awake, alert, responding appropriately. Cranial nerves intact. He moves extremities without difficulty. He ambulates without assistance or assistive devices. His intake over the last 24 hours was 2350, output was 650. LABORATORY DATA: His chemistry this morning showed a serum sodium 138, potassium 4.2, chloride 103, bicarbonate 31, anion gap of 4, BUN 17, creatinine 1.3, estimated GFR was 55 mL/minute. His glucose was 114, calcium was 8.9, magnesium was 2. Total bilirubin, AST, ALT were normal. Alkaline phosphatase slightly elevated. Total protein was 7.1, albumin 3.1. Vitamin B12 is more than 3000, 25-hydroxy vitamin D was 35.8 and his TSH was normal at 2.64. His white cell count was 5800, hemoglobin 12.9, hematocrit 39, MCV 94, and platelet count 232,000. DISCHARGE MEDICATIONS: He will be discharged home to continue on following medications: Furosemide 40 mg 1 tablet once a day, potassium chloride 20 mEq 3 times a day, aspirin 81 mg once a day, atorvastatin 80 mg at bedtime, Plavix 75 mg once a day, cyclobenzaprine 10 mg 3 times a day, Advair Diskus 250/50 one inhalation once a day, hydrocodone/APAP 10/325 one tablet every 6 hours, metoprolol tartrate 25 mg twice a day, morphine sulfate extended release 60 mg twice a day, nitroglycerin 0.4 mg sublingually every 5 minutes x 3, Protonix 40 mg once a day, pramipexole or Mirapex 1 mg at bedtime, sumatriptan succinate 100 mg daily as needed for headache, Flomax 0.4 mg at bedtime, topiramate 50 mg daily. FINAL DISCHARGE DIAGNOSES: 1. Severe hypokalemia, resolved. His potassium is 4.2. 2. Acute on chronic kidney injury, improved. His repeat BUN and creatinine is down to 17 and 1.3 from 25 and 1.9. 3. Chronic diastolic congestive heart failure, clinically well compensated. 4. Hypertension, well controlled. 5. Coronary artery disease status post PCI and stent deployment. 6. Chronic obstructive pulmonary disease. 7. Hyperlipidemia. 8. Peripheral vascular disease. LUIS CARLOS BURNHAM MD DR: BERRY/leo JOB#: [id number] / [id number]
== END 2016-10-05 13:05 | disposition home or self-care (01) | DRG 640 ==
LOC: ER 14:31 → 1 SOUTH 16:45
PROVIDERS: ADMIT Internal Medicine; ATTEND Internal Medicine
DX: E87.6 Hypokalemia (principal); N17.0 Acute kidney failure with tubular necrosis; I50.32 Chronic diastolic (congestive) heart failure; I13.0 Hypertensive heart and chronic kidney disease with heart failure and stage 1 through stage 4 chronic kidney disease, or unspecified chronic kidney disease; J44.9 Chronic obstructive pulmonary disease, unspecified; I73.9 Peripheral vascular disease, unspecified; I25.10 Atherosclerotic heart disease of native coronary artery without angina pectoris; E78.00 Pure hypercholesterolemia, unspecified; G89.29 Other chronic pain; N18.9 Chronic kidney disease, unspecified; E78.5 Hyperlipidemia, unspecified; Z95.5 Presence of coronary angioplasty implant and graft; Z95.820 Peripheral vascular angioplasty status with implants and grafts; Z88.8 Allergy status to other drugs, medicaments and biological substances; Z82.5 Family history of asthma and other chronic lower respiratory diseases; Z87.891 Personal history of nicotine dependence; M54.5 Low back pain
CPT/HCPCS: 36415; 70450; 71020; 80048; 80053; 81001; 82306; 82553; 82607; 83690; 83735; 83880; 84443; 84484; 85025; 93005; 93970; 96360; J3480; 99285-25; J7030

== ENCOUNTER → 2016-10-18 | Outpatient (CLI) | payer MEDICARE, BC ==
[2016-10-05 10:57] VITALS: BP 118/71
[~2016-10-18] MED LIST changes: +POTA20TA4 PO
[2016-10-18 14:38] LABS: CREATININE 1.6 mg/dL (0.7-1.3); POTASSIUM 4.1 mmol/L (3.5-5.1)
[2016-10-18 14:40] LABS: GFR 43.5
== END | disposition home or self-care (01) ==
LOC: LAB 13:53
PROVIDERS: ATTEND Physician Assistant Medical
DX: I11.0 Hypertensive heart disease with heart failure (principal); I50.30 Unspecified diastolic (congestive) heart failure; I25.10 Atherosclerotic heart disease of native coronary artery without angina pectoris; J44.9 Chronic obstructive pulmonary disease, unspecified; T14.8 Other injury of unspecified body region; I73.9 Peripheral vascular disease, unspecified; K21.9 Gastro-esophageal reflux disease without esophagitis
CPT/HCPCS: 36415; 80048

== ENCOUNTER → 2016-12-05 | Outpatient (CLI) | payer MEDICARE, BC ==
[~2016-12-05] MED LIST changes: +METO-239 PO; -METO25TA9 PO
[2016-12-05 13:18] LABS: CALCIUM 9.7 mg/dL (8.5-10.1); CREATININE 1.7 mg/dL (0.7-1.3); GFR 40.5; POTASSIUM 4.6 mmol/L (3.5-5.1)
== END | disposition home or self-care (01) ==
LOC: LAB 11:40
PROVIDERS: ATTEND Internal Medicine Cardiovascular Disease
DX: I13.0 Hypertensive heart and chronic kidney disease with heart failure and stage 1 through stage 4 chronic kidney disease, or unspecified chronic kidney disease (principal); I50.30 Unspecified diastolic (congestive) heart failure; N18.9 Chronic kidney disease, unspecified
CPT/HCPCS: 36415; 80048

== ENCOUNTER 2017-02-03 13:42 | Emergency (ER) | payer MEDICARE, BC ==
[~2017-02-03] VITALS: Ht 175.3 cm; Wt 96.3 kg
[2017-02-03] MEDS ORDERED: IPRATRPIUM/ALBUTEROL 0.5/2.5MG 3 ML NEBU. NEB ONE (14:45)
[2017-02-03 14:51] LABS: BASO # 0.1 x10^3/uL (0.0-0.2); BASO % 1 % (0-3); EOS # 0.1 x10^3/uL (0.0-0.7); EOS % 1 % (0-3); HEMATOCRIT 47.5 % (39.0-53.0); LYMPH # 1.6 x10^3/uL (1.0-4.8); LYMPH % 16 % (24-48); MEAN CORPUSCULAR HEMOGLOBIN 31 pg (25-35); MEAN CORPUSCULAR HGB CONC 34 g/dL (31-37); MEAN CORPUSCULAR VOLUME 92 fL (79-100); MONO # 0.7 x10^3/uL (0.0-1.1); MONO % 8 % (0-9); NEUT # 7.2 x10^3uL (1.8-7.7); NEUT % 75 % (31-73); PLATELET COUNT 136 x10^3/uL (140-400); RED BLOOD COUNT 5.15 x10^6/uL (4.30-5.70); RED CELL DISTRIBUTION WIDTH 14.8 % (11.5-14.5); WHITE BLOOD COUNT 9.7 x10^3/uL (4.0-11.0)
--- NOTE | 2017-02-03 14:53 | PHYS DOC ---
Past History Past Medical History: Bronchitis, CAD, CHF, COPD, High Cholesterol, Heart Disease, Hypertension, Vascular Disease Past Surgical History: Other Additional Past Surgical Histo: patient has had stenting bilaterally of his lower iliac trunks, heart stent Smoking: Cigarettes, Less than 1pk/day Alcohol Use: Occasionally Drug Use: None Adult General Chief Complaint Chief Complaint: shortness of breath [facility] HPI Patient is a 66 year old male who presents with complaint of shortness of breath. Patient states that he has been having worsening symptoms over the past 3-4 days. Patient has history of congestive heart failure and COPD. The patient states that he has been taking his medications as prescribed at home. Patient denies productive cough or fever with symptoms and currently denies any chest pain. Patient does admit to worsening dyspnea on exertion but denies any worsening swelling. Patient takes Lasix and spironolactone for treatment of congestive heart failure. Patient follows with Dr. Amin of cardiology. Patient also states that he had a fall earlier this morning after slipping on the linoleum of his kitchen floor. Patient fell onto his left hip. Patient denies hitting his head or losing consciousness. Patient states that he is having severe pain which she rates as 9 out of 10 on my evaluation in the left hip. Patient states that worsens with movement. Patient has not taken any medication for his symptoms at this time. Review of Systems Review of Systems Constitutional: Denies fever or chills [] Eyes: Denies change in visual acuity, redness, or eye pain [] HENT: Denies nasal congestion or sore throat [] Respiratory: Denies cough or shortness of breath [] Cardiovascular: No additional information not addressed in HPI [] GI: Denies abdominal pain, nausea, vomiting, bloody stools or diarrhea [] : Denies dysuria or hematuria [] Musculoskeletal: Denies back pain or joint pain [] Integument: Denies rash or skin lesions [] Neurologic: Denies headache, focal weakness or sensory changes [] Endocrine: Denies polyuria or polydipsia [] All other systems were reviewed and found to be within normal limits, except as documented in this note. Current Medications Current Medications Current Medications Medications (Trade) Dose Ordered Sig/Rosalie Start Time Stop Time Status Last Admin Dose Admin Albuterol/ Ipratropium (Duoneb) 3 ml 1X ONCE 02/03/17 14:45 02/03/17 14:46 Allergies Allergies Allergies Coded Allergies Type Severity Reaction Last Updated Verified chlorpheniramine Allergy Intermediate 09/26/13 Yes disulfiram Allergy Intermediate 07/03/13 Yes phenylephrine Allergy Intermediate 09/26/13 Yes Physical Exam Physical Exam Constitutional: Alert, afebrile, appears in mild to moderate discomfort. [] HENT: Normocephalic, atraumatic, bilateral external ears normal, oropharynx moist, no oral exudates, nose normal. [] Eyes: PERRLA, EOMI, conjunctiva normal, no discharge. [] Neck: Normal range of motion, no tenderness, supple, no stridor. [] Cardiovascular:Heart rate regular rhythm, no murmur [] Lungs & Thorax: Bilateral breath sounds clear to auscultation [] Abdomen: Bowel sounds normal, soft, no tenderness, no masses, no pulsatile masses. [] Skin: Warm, dry, no erythema, no rash. [] Back: No tenderness, no CVA tenderness. [] Extremities: Anterior and lateral hip tenderness to palpation, pain with range of motion at left hip, pulses 2+ distal. [] Neurologic: Alert and oriented X 3, normal motor function, normal sensory function, no focal deficits noted. [] Current Patient Data Vital Signs Vital Signs Date Time Temp Pulse Resp B/P (MAP) Pulse Ox O2 Delivery O2 Flow Rate FiO2 02/03/17 16:05 16 90 02/03/17 14:55 Room Air 02/03/17 13:50 97.9 78 Lab Results Laboratory Tests Test 02/03/17 14:30 White Blood Count 9.7 x10^3/uL Red Blood Count 5.15 x10^6/uL Hemoglobin 16.0 g/dL Hematocrit 47.5 % Mean Corpuscular Volume 92 fL Mean Corpuscular Hemoglobin 31 pg Mean Corpuscular Hemoglobin Concent 34 g/dL Red Cell Distribution Width 14.8 % Platelet Count 136 x10^3/uL Neutrophils (%) (Auto) 75 % Lymphocytes (%) (Auto) 16 % Monocytes (%) (Auto) 8 % Eosinophils (%) (Auto) 1 % Basophils (%) (Auto) 1 % Neutrophils # (Auto) 7.2 x10^3uL Lymphocytes # (Auto) 1.6 x10^3/uL Monocytes # (Auto) 0.7 x10^3/uL Eosinophils # (Auto) 0.1 x10^3/uL Basophils # (Auto) 0.1 x10^3/uL Sodium Level 141 mmol/L Potassium Level 4.4 mmol/L Chloride Level 104 mmol/L Carbon Dioxide Level 27 mmol/L Anion Gap 10 Blood Urea Nitrogen 19 mg/dL Creatinine 1.4 mg/dL Estimated GFR (Cockcroft-Gault) 50.7 BUN/Creatinine Ratio 14 Glucose Level 112 mg/dL Calcium Level 9.6 mg/dL Total Bilirubin 0.4 mg/dL Aspartate Amino Transf (AST/SGOT) 17 U/L Alanine Aminotransferase (ALT/SGPT) 22 U/L Alkaline Phosphatase 111 U/L Creatine Kinase 59 U/L Creatine Kinase MB (Mass) 1.7 ng/mL Creatine Kinase MB Relative Index 2.9 % Troponin I Quantitative < 0.017 ng/mL ZF-Efo-D-Type Natriuretic Peptide 246 pg/mL Total Protein 7.5 g/dL Albumin 3.5 g/dL Albumin/Globulin Ratio 0.9 Current Medications Medications (Trade) Dose Ordered Sig/Rosalie Route PRN Reason Start Time Stop Time Status Last Admin Dose Admin Albuterol/ Ipratropium (Duoneb) 3 ml 1X ONCE NEB 02/03/17 14:45 02/03/17 14:46 DC 02/03/17 14:54 Acetaminophen/ Hydrocodone Bitart (Lortab 7.5/325) 1 tab 1X ONCE PO 02/03/17 16:00 02/03/17 16:01 DC 02/03/17 16:05 EKG EKG Interpreted by me: Heart rate 77, sinus rhythm, incomplete right bundle branch block, no acute ST/T-wave abnormalities present[] Radiology/Procedures Radiology/Procedures [address] [address] IMAGING REPORT Signed PATIENT: MAURICE BRADEN ACCOUNT: [id number] : 1950 LOCATION: ER AGE: 66 SEX: M EXAM STATUS: REG ER ORD. PHYSICIAN: IVETH RAMOS MD REASON: left hip pain PROCEDURE: CT PELVIS WO CONTRAST CT pelvis without contrast 02/03/2017 Clinical indication: Left hip pain. Comparison: Left hip radiograph 02/03/2017. Technique: Multiple CT images of the pelvis were obtained without contrast. PQRS Compliance Statement: One or more of the following individualized dose reduction techniques were utilized for this examination: 1. Automated exposure control 2. Adjustment of the mA and/or kV according to patient size 3. Use of iterative reconstruction technique Findings: Prior posterior instrumentation at L5-S1 with vertical rods and transpedicular screws. There are bilateral common iliac stents. The femoral heads are round and without collapse. There is no evidence of acute hip fracture or dislocation. There is mild bilateral hip osteoarthritis with osteophytic spurring. No sacroiliac or symphysis pubis diastases. The visualized small and large bowel loops are normal in caliber without obstruction. There is mild circumferential thickening of the urinary bladder. Prostate and seminal vesicles are present. Impression: 1. No CT evidence of left hip fracture. If there is continued clinical concern, MRI is more sensitive for nondisplaced fracture. 2. Mild urinary bladder wall thickening which may be due to incomplete distention or cystitis. Urinalysis could be performed. DICTATED AND SIGNED BY: BRENDA WEEMS MD DATE: 02/03/171600 CC: IVETH RAMOS MD; FROY DE LOS SANTOS MD ~ [place] [address] IMAGING REPORT Signed PATIENT: MAURICE BRADEN ACCOUNT: [id number] : 1950 LOCATION: ER AGE: 66 SEX: M EXAM STATUS: REG ER ORD. PHYSICIAN: IVETH RAMOS MD REASON: fall, left hip pain PROCEDURE: HIP LEFT 2V WITH PELVIS AP pelvis and two-view left hip 02/03/2017 Clinical indication: Fall with left hip pain. Comparison: CT abdomen and pelvis 09/12/2015. Findings: Posterior spinal fixation L5-S1 with vertical rods and transpedicular screws. Bilateral common iliac stents. No evidence of acute bony pelvic or left hip fracture or dislocation identified. There is mild bilateral hip osteoarthritis with joint space narrowing and osteophytic spurring. Symphysis pubis is intact. No sacroiliac diastases. Impression: 1. No acute osseous abnormality. 2. Mild bilateral hip osteoarthritis. DICTATED AND SIGNED BY: BRENDA WEEMS MD DATE: 02/03/171518 CC: IVETH RAMOS MD; FROY DE LOS SANTOS MD ~ [place] [address] IMAGING REPORT Signed PATIENT: MAURICE BRADEN ACCOUNT: [id number] : 1950 LOCATION: ER AGE: 66 SEX: M EXAM STATUS: REG ER ORD. PHYSICIAN: IVETH RAMOS MD REASON: shortness of breath PROCEDURE: PORTABLE CHEST 1V Single view AP chest 02/03/2017 Clinical indication: Shortness of air. Comparison: AP chest 10/03/2016, CTA chest 07/05/2016 Findings: Cardiac and mediastinal silhouettes are unremarkable. No pleural effusion, pneumothorax or focal consolidation. Impression: No acute cardiopulmonary abnormality. DICTATED AND SIGNED BY: BRENDA WEEMS MD DATE: 02/03/171517 CC: IVETH RAMOS MD; FROY DE LOS SANTOS MD ~ [] Course & Med Decision Making Course & Med Decision Making Pertinent Labs and Imaging studies reviewed. (See chart for details) Patient was given DuoNeb breathing treatment in oral [place] for treatment of symptoms. The patient's radiographic imaging showed no evidence of hip fracture. Patient's chest x-ray shows no signs of edema or pneumonia. Patient's blood work is unremarkable. The patient's respiratory symptoms are likely due to mild exacerbation of COPD. Patient will be started on a 5 day course of prednisone for treatment. Advise follow-up with patient's primary doctor in 2-3 days for reevaluation and recommended return to the emergency department for any worsening symptoms. Patient voiced understanding and in agreement with treatment plan. Dragon Disclaimer Dragon Disclaimer This electronic medical record was generated, in whole or in part, using a voice recognition dictation system. Departure Departure: Impression: Primary Impression: COPD exacerbation Additional Impression: Left hip pain Disposition: 01 HOME, SELF-CARE Condition: IMPROVED Referrals: FROY DE LOS SANTOS MD (PCP) Patient Instructions: Chronic Obstructive Pulmonary Disease, Hip Pain Additional Instructions: Follow-up with your primary doctor in the next 2-3 days for reevaluation. Return to the emergency department for any worsening symptoms. Scripts Prednisone (PREDNISONE) 20 Mg Tablet 1 TAB PO BID, #10 TAB Prov: IVETH RAMOS MD 02/03/17 Problem Qualifiers IVETH RAMOS MD Feb 03, 2017 14:53
[2017-02-03 15:16] LABS: ALBUMIN 3.5 g/dL (3.4-5.0); ALBUMIN/GLOBULIN RATIO 0.9 (1.0-1.7); CALCIUM 9.6 mg/dL (8.5-10.1); CREATININE 1.4 mg/dL (0.7-1.3); GFR 50.7; POTASSIUM 4.4 mmol/L (3.5-5.1); TOTAL BILIRUBIN 0.4 mg/dL (0.2-1.0); TOTAL PROTEIN 7.5 g/dL (6.4-8.2)
--- NOTE | 2017-02-03 15:22 | RAD ---
Single view AP chest 02/03/2017 Clinical indication: Shortness of air. Comparison: AP chest 10/03/2016, CTA chest 07/05/2016 Findings: Cardiac and mediastinal silhouettes are unremarkable. No pleural effusion, pneumothorax or focal consolidation. Impression: No acute cardiopulmonary abnormality.
--- NOTE | 2017-02-03 15:23 | RAD ---
AP pelvis and two-view left hip 02/03/2017 Clinical indication: Fall with left hip pain. Comparison: CT abdomen and pelvis 09/12/2015. Findings: Posterior spinal fixation L5-S1 with vertical rods and transpedicular screws. Bilateral common iliac stents. No evidence of acute bony pelvic or left hip fracture or dislocation identified. There is mild bilateral hip osteoarthritis with joint space narrowing and osteophytic spurring. Symphysis pubis is intact. No sacroiliac diastases. Impression: 1. No acute osseous abnormality. 2. Mild bilateral hip osteoarthritis.
[2017-02-03] MEDS ORDERED: HYDROcodone/APAP 7.5/325MG 1 TAB TABLET PO ONE (16:00)
--- NOTE | 2017-02-03 16:08 | RAD ---
CT pelvis without contrast 02/03/2017 Clinical indication: Left hip pain. Comparison: Left hip radiograph 02/03/2017. Technique: Multiple CT images of the pelvis were obtained without contrast. PQRS Compliance Statement: One or more of the following individualized dose reduction techniques were utilized for this examination: 1. Automated exposure control 2. Adjustment of the mA and/or kV according to patient size 3. Use of iterative reconstruction technique Findings: Prior posterior instrumentation at L5-S1 with vertical rods and transpedicular screws. There are bilateral common iliac stents. The femoral heads are round and without collapse. There is no evidence of acute hip fracture or dislocation. There is mild bilateral hip osteoarthritis with osteophytic spurring. No sacroiliac or symphysis pubis diastases. The visualized small and large bowel loops are normal in caliber without obstruction. There is mild circumferential thickening of the urinary bladder. Prostate and seminal vesicles are present. Impression: 1. No CT evidence of left hip fracture. If there is continued clinical concern, MRI is more sensitive for nondisplaced fracture. 2. Mild urinary bladder wall thickening which may be due to incomplete distention or cystitis. Urinalysis could be performed.
[2017-02-03] MEDS ORDERED: PRED20TA PO (17:02)
[2017-02-03 17:15] VITALS: BP 119/68
[2017-02-04 04:08] LABS: HEMOGLOBIN ISTAT 16.7 gm/dL; POTASSIUM ISTAT 4.1 mmol/L (3.5-5.0)
--- NOTE | 2017-02-04 05:32 | EKG ---
[address] [address] Test Date: 2017-02-03 Test Time: 14:21:44 Pat Name: MAURICE BRADEN Department: Room: Gender: M Paralegal Secretary: SABRINA : 1950 Requested By: IVETH RAMOS Order Number: [id number] Reading MD: Measurements Intervals [place] Rate: 77 P: 34 W[place]: 160 QRS: 6 QRSD: 90 T: 39 QT: 360 QTc: 409 Interpretive Statements SINUS ARRHYTHMIA INCOMPLETE RIGHT BUNDLE BRANCH BLOCK QRS(T) CONTOUR ABNORMALITY CONSIDER ANTEROSEPTAL MYOCARDIAL DAMAGE CONSISTENT WITH INFERIOR INFARCT PROBABLY OLD ABNORMAL ECG RI6.01 Unconfirmed report No previous ECG available for comparison
== END 2017-02-03 17:20 | disposition home or self-care (01) ==
LOC: ER 13:42
DX: J44.1 Chronic obstructive pulmonary disease with (acute) exacerbation (principal); M25.552 Pain in left hip; I25.10 Atherosclerotic heart disease of native coronary artery without angina pectoris; I11.0 Hypertensive heart disease with heart failure; I50.9 Heart failure, unspecified; E78.00 Pure hypercholesterolemia, unspecified; F17.210 Nicotine dependence, cigarettes, uncomplicated; Z95.5 Presence of coronary angioplasty implant and graft; Z88.8 Allergy status to other drugs, medicaments and biological substances; W01.0XXA Fall on same level from slipping, tripping and stumbling without subsequent striking against object, initial encounter; Y93.89 Activity, other specified; Y99.8 Other external cause status; Y92.090 Kitchen in other non-institutional residence as the place of occurrence of the external cause
CPT/HCPCS: 36415; 71010; 72192; 73502; 80053; 82553; 83880; 84484; 85025; 93005; 94640; 99285; J7620; 80047

== ENCOUNTER 2017-04-08 12:26 | Emergency (ER) | payer MEDICARE, BC ==
[~2017-04-08 12:26] MED LIST changes: +PRED20TA PO; +WARF1TAB69 PO; -WARF1TAB7 PO
--- NOTE | 2017-04-08 13:47 | EKG ---
[address] [address] Test Date: 2017-04-08 Test Time: 13:40:18 Pat Name: JOSE BRADEN Department: Room: Gender: M Managing Member: GLADYS : 1950 Requested By: CAREN QUINTEROS Order Number: [id number] Reading MD: Jose Monique Measurements Intervals [place] Rate: 75 P: 41 [place]: 158 QRS: 67 QRSD: 92 T: 59 QT: 376 QTc: 422 Interpretive Statements SINUS RHYTHM LEFT ATRIAL ABNORMALITY RI6.01 Electronically Signed On 04-10-2017 11:44:50 CS ASSOCIATE by Jose Monique
[2017-04-08 13:59] LABS: BASO % 1 % (0-3); EOS # 0.1 x10^3/uL (0.0-0.7); EOS % 2 % (0-3); HEMATOCRIT 45.2 % (39.0-53.0); HEMOGLOBIN 15.3 g/dL (13.0-17.5); LYMPH # 1.1 x10^3/uL (1.0-4.8); LYMPH % 13 % (24-48); MEAN CORPUSCULAR HEMOGLOBIN 31 pg (25-35); MEAN CORPUSCULAR HGB CONC 34 g/dL (31-37); MEAN CORPUSCULAR VOLUME 93 fL (79-100); MONO # 0.6 x10^3/uL (0.0-1.1); MONO % 6 % (0-9); NEUT # 7.1 x10^3uL (1.8-7.7); NEUT % 79 % (31-73); PLATELET COUNT 139 x10^3/uL (140-400); RED BLOOD COUNT 4.86 x10^6/uL (4.30-5.70); RED CELL DISTRIBUTION WIDTH 16.2 % (11.5-14.5)
[2017-04-08] MEDS ORDERED: BENZONATATE 100 MG CAPSULE. PO ONE (14:00)
[2017-04-08] MEDS ORDERED: ONDANSETRON PF 4 MG/2 ML VIAL. IV ONE (14:00)
--- NOTE | 2017-04-08 14:06 | RAD ---
2 view CXR: Clinical indications: Cough and chest pain for 3 days. Comparison: February 03, 2017. Findings: No acute lung infiltrate or pleural effusion or pulmonary edema or lung mass or pneumothorax is seen. The heart size, pulmonary vasculature, mediastinum and both amber are unremarkable. The osseous structures appear intact. Impression: No acute radiographic abnormality is seen.
[2017-04-08 14:18] LABS: ALBUMIN 3.2 g/dL (3.4-5.0); ALBUMIN/GLOBULIN RATIO 0.7 (1.0-1.7); CALCIUM 9.4 mg/dL (8.5-10.1); CREATININE 1.3 mg/dL (0.7-1.3); GFR 55.2; TOTAL BILIRUBIN 0.5 mg/dL (0.2-1.0); TOTAL PROTEIN 7.5 g/dL (6.4-8.2)
[2017-04-08 14:50] LABS: INFLUENZA A PATIENT NEGATIVE (NEGATIVE); INFLUENZA B PATIENT NEGATIVE (NEGATIVE)
[2017-04-08] MEDS ORDERED: BENZ100C PO (15:36)
[2017-04-08] MEDS ORDERED: FLUT9.9S NS (15:36)
[2017-04-08] MEDS ORDERED: ALBU8.5H8 INH (15:36)
[2017-04-08] MEDS ORDERED: AZIT250T6 PO (15:36)
--- NOTE | 2017-04-08 15:37 | PHYS DOC ---
Past History Past Medical History: Bronchitis, CAD, CHF, COPD, High Cholesterol, Heart Disease, Hypertension, Vascular Disease Past Surgical History: Other Additional Past Surgical Histo: patient has had stenting bilaterally of his lower iliac trunks, heart stent Smoking: Cigarettes, Less than 1pk/day Alcohol Use: Occasionally Drug Use: None Adult General Chief Complaint Chief Complaint: FLU SYMPTOM HPI HPI Patient is a 66 year old male who presents with sinus congestion. The patient complains of nasal/sinus congestion x 3 days, occasional dull headache not present at this time. Also reports occasional dry cough without wheezing, occasional shortness of breath with exertion & chest tightness with coughing. Denies fevers/chills, nausea, vomiting, diarrhea, dysuria. History of CAD, CHF , COPD. Review of Systems Review of Systems Constitutional: Denies fever or chills Eyes: Denies change in visual acuity HENT: Reports nasal congestion, denies sore throat Respiratory: Reports cough & shortness of breath Cardiovascular: Reports chest pain ,denies edema GI: Denies abdominal pain, nausea, vomiting, or diarrhea : Denies dysuria or hematuria Musculoskeletal: Denies back pain or joint pain Integument: Denies rash Neurologic: Reports headache, denies focal weakness or sensory changes All other systems were reviewed and found to be within normal limits, except as documented in this note. Current Medications Current Medications Current Medications Medications (Trade) Dose Ordered Sig/Rosalie Start Time Stop Time Status Last Admin Dose Admin Benzonatate (Tessalon Perle) 100 mg 1X ONCE 04/08/17 14:00 04/08/17 14:01 DC 04/08/17 14:16 100 MG Ondansetron HCl (Zofran) 4 mg 1X ONCE 04/08/17 14:00 04/08/17 14:01 DC 04/08/17 14:15 4 MG Allergies Allergies Allergies Coded Allergies Type Severity Reaction Last Updated Verified chlorpheniramine Allergy Intermediate 09/26/13 Yes disulfiram Allergy Intermediate 07/03/13 Yes phenylephrine Allergy Intermediate 09/26/13 Yes Physical Exam Physical Exam Constitutional: Well developed, well nourished, no acute distress, non-toxic appearance. HENT: Normocephalic, atraumatic, bilateral external ears normal, oropharynx moist, no tonsillar enlargement or exudate, nose normal. no focal sinus tenderness Eyes: PERRLA, EOMI, conjunctiva normal, no discharge. Neck: supple, no stridor. no meningismus Cardiovascular: RRR, no murmurs, no edema. Lungs & Thorax: LCTAB, no wheezing, no respiratory distress. Abdomen: soft, nontender, nondistended. Skin: Warm, dry, no erythema, no rash. Back: No tenderness. Extremities: No tenderness, no edema. no calf tenderness or swelling. Neurologic: Alert and oriented X 3, cranial nerves 2-12 grossly intact, symmetric strength/sensation to upper & lower extremities, no focal deficits noted. Psychologic: Affect normal, judgement normal, mood normal. Current Patient Data Lab Results Laboratory Tests Test 04/08/17 13:44 04/08/17 14:20 White Blood Count 9.0 x10^3/uL (4.0-11.0) Red Blood Count 4.86 x10^6/uL (4.30-5.70) Hemoglobin 15.3 g/dL (13.0-17.5) Hematocrit 45.2 % (39.0-53.0) Mean Corpuscular Volume 93 fL (79-100) Mean Corpuscular Hemoglobin 31 pg (25-35) Mean Corpuscular Hemoglobin Concent 34 g/dL (31-37) Red Cell Distribution Width 16.2 % (11.5-14.5) H Platelet Count 139 x10^3/uL (140-400) L Neutrophils (%) (Auto) 79 % (31-73) H Lymphocytes (%) (Auto) 13 % (24-48) L Monocytes (%) (Auto) 6 % (0-9) Eosinophils (%) (Auto) 2 % (0-3) Basophils (%) (Auto) 1 % (0-3) Neutrophils # (Auto) 7.1 x10^3uL (1.8-7.7) Lymphocytes # (Auto) 1.1 x10^3/uL (1.0-4.8) Monocytes # (Auto) 0.6 x10^3/uL (0.0-1.1) Eosinophils # (Auto) 0.1 x10^3/uL (0.0-0.7) Basophils # (Auto) 0.0 x10^3/uL (0.0-0.2) Sodium Level 142 mmol/L (136-145) Potassium Level 4.0 mmol/L (3.5-5.1) Chloride Level 102 mmol/L (98-107) Carbon Dioxide Level 30 mmol/L (21-32) Anion Gap 10 (6-14) Blood Urea Nitrogen 14 mg/dL (8-26) Creatinine 1.3 mg/dL (0.7-1.3) Estimated GFR (Cockcroft-Gault) 55.2 BUN/Creatinine Ratio 11 (6-20) Glucose Level 124 mg/dL (70-99) H Calcium Level 9.4 mg/dL (8.5-10.1) Total Bilirubin 0.5 mg/dL (0.2-1.0) Aspartate Amino Transferase (AST) 20 U/L (15-37) Alanine Aminotransferase (ALT) 22 U/L (16-63) Alkaline Phosphatase 96 U/L (46-116) Troponin I Quantitative < 0.017 ng/mL (0-0.055) PR-Oha-Y-Type Natriuretic Peptide 289 pg/mL (0-124) H Total Protein 7.5 g/dL (6.4-8.2) Albumin 3.2 g/dL (3.4-5.0) L Albumin/Globulin Ratio 0.7 (1.0-1.7) L Influenza Type A (Rapid) Negative (NEGATIVE) Influenza Type B (Rapid) Negative (NEGATIVE) EKG EKG Interpreted by me: 1340: Normal sinus rhythm rate 75, no acute ST or T wave changes, normal intervals, no ectopy.[] Radiology/Procedures Radiology/Procedures PROCEDURE: CHEST PA & LATERAL 2 view CXR: Clinical indications: Cough and chest pain for 3 days. Comparison: February 03, 2017. Findings: No acute lung infiltrate or pleural effusion or pulmonary edema or lung mass or pneumothorax is seen. The heart size, pulmonary vasculature, mediastinum and both amber are unremarkable. The osseous structures appear intact. Impression: No acute radiographic abnormality is seen. DICTATED AND SIGNED BY: EUGENIO ALY MD DATE: 04/08/17 1402[] Course & Med Decision Making Course & Med Decision Making Pertinent Labs and Imaging studies reviewed. (See chart for details) The patient presents with sinus congestion & upper respiratory illness. Symptoms seem clearly related to viral illness, but has several comorbidities so obtained labs, EKG, CXR to evaluate for more serious concurrent pathology. He had no wheezing on exam, stable vitals, no focal neuro deficit. Gave medications here for symptomatic relief, no significant abnormality on workup here, feels well & comfortable with discharge home. Recommend rest, hydration, tylenol/ibuprofen for pain or fever, gave prescriptions for flonase, proair, tessalon perles, z pack for acute bronchitis in patient with COPD. Recommend follow up with PCP in 2-3 days. Come back for high fever, severe chest pain or shortness of breath, uncontrolled vomiting, any otherwise worsening condition. Discharged home in stable condition. [] Dragon Disclaimer Dragon Disclaimer This electronic medical record was generated, in whole or in part, using a voice recognition dictation system. Departure Departure: Impression: Primary Impression: Sinusitis Additional Impression: Upper respiratory infection Disposition: HOME, SELF-CARE Condition: STABLE Referrals: FROY DE LOS SANTOS MD (PCP) Patient Instructions: Sinusitis, [id number], Upper Respiratory Infection, Adult, [id number] Additional Instructions: You were seen in the emergency department today. Your labs, EKG, & chest x-ray did not show serious abnormality, & you tested negative for influenza. You have sinusitits & upper respiratory infection/bronchitis. Please rest, drink fluids, take tylenol or ibuprofen for pain or fever, use flonase for nasal congestion/sinus congestion, use tessalon perles & proair inhaler for cough, & take azithromycin for acute bronchitis. Follow up with primary care if not improving in 2-3 days. Come back for high fever, severe shortness of breath or chest pain, uncontrolled vomiting, any otherwise worsening condition. Scripts Albuterol Sulfate (PROAIR HFA INHALER) 8.5 Gm Hfa.aer.ad 1 PUFF INH PRN Q6HRS Y for SHORTNESS OF BREATH, #1 INHALER 0 Refills Prov: CAREN QUINTEROS MD 04/08/17 Azithromycin (AZITHROMYCIN TABLET) 250 Mg Tablet 1 PKG PO UD, #6 TAB Prov: CAREN QUINTEROS MD 04/08/17 Benzonatate (TESSALON PERLE) 100 Mg Capsule 1 CAP PO TID, #21 CAP Prov: CAREN QUINTEROS MD 04/08/17 Fluticasone Propionate (Flonase Allergy Relief) 9.9 Ml Stover.susp 2 SPRAYS NS DAILY, #1 BOTTLE Prov: CAREN QUINTEROS MD 04/08/17 Problem Qualifiers CAREN QUINTEROS MD Apr 08, 2017 15:37
[2017-04-08 16:04] VITALS: BP 151/79
== END 2017-04-08 16:04 | disposition home or self-care (01) ==
LOC: ER 12:26
DX: J06.9 Acute upper respiratory infection, unspecified (principal); J32.9 Chronic sinusitis, unspecified; J44.9 Chronic obstructive pulmonary disease, unspecified; I11.0 Hypertensive heart disease with heart failure; E78.00 Pure hypercholesterolemia, unspecified; I25.10 Atherosclerotic heart disease of native coronary artery without angina pectoris; I50.9 Heart failure, unspecified; F17.210 Nicotine dependence, cigarettes, uncomplicated; Z95.5 Presence of coronary angioplasty implant and graft; Z88.8 Allergy status to other drugs, medicaments and biological substances
CPT/HCPCS: 36415; 71046; 80053; 83880; 84484; 85025; 87804; 93005; 96374; 99285; J2405

== ENCOUNTER → 2018-05-26 | Outpatient (CLI) | payer MEDICARE, BC ==
[~2018-05-26] MED LIST changes: +ALBU2.5V8 INH; -AMLO10TA2 PO; +AMLO10TA8 PO; +AZIT250T6 PO; +BENZ100C PO; -FENO145T2 PO; +FENO145T30 PO; +FLUT9.9S NS; -HYDR-2766 PO; +HYDR-2769 PO
[2018-05-26 16:22] LABS: BASO % 0 % (0-3); EOS # 0.1 x10^3/uL (0.0-0.7); EOS % 1 % (0-3); HEMATOCRIT 44.8 % (39.0-53.0); HEMOGLOBIN 14.5 g/dL (13.0-17.5); LYMPH # 1.4 x10^3/uL (1.0-4.8); LYMPH % 18 % (24-48); MEAN CORPUSCULAR HEMOGLOBIN 29 pg (25-35); MEAN CORPUSCULAR HGB CONC 32 g/dL (31-37); MEAN CORPUSCULAR VOLUME 88 fL (79-100); MONO # 0.5 x10^3/uL (0.0-1.1); MONO % 7 % (0-9); NEUT # 5.9 x10^3uL (1.8-7.7); NEUT % 75 % (31-73); PLATELET COUNT 158 x10^3/uL (140-400); RED BLOOD COUNT 5.08 x10^6/uL (4.30-5.70); RED CELL DISTRIBUTION WIDTH 16.5 % (11.5-14.5); WHITE BLOOD COUNT 7.9 x10^3/uL (4.0-11.0)
[2018-05-26 16:25] LABS: CALCIUM 9.2 mg/dL (8.5-10.1); CREATININE 1.3 mg/dL (0.7-1.3); GFR 55.1; POTASSIUM 4.2 mmol/L (3.5-5.1)
== END | disposition home or self-care (01) ==
LOC: LAB 15:44
DX: I13.0 Hypertensive heart and chronic kidney disease with heart failure and stage 1 through stage 4 chronic kidney disease, or unspecified chronic kidney disease (principal); N18.9 Chronic kidney disease, unspecified; I50.32 Chronic diastolic (congestive) heart failure; I73.9 Peripheral vascular disease, unspecified
CPT/HCPCS: 36415; 80048; 85025

== ENCOUNTER → 2018-08-26 | Outpatient (CLI) | payer MEDICARE, BC ==
--- NOTE | 2018-08-26 17:03 | RAD ---
Carotid doppler ultrasound History: Syncopal episode Multiple grayscale, color, and duplex spectral analysis waveform sonographic images were acquired of the carotid, subclavian, and vertebral arteries. Comparison: None Findings: RIGHT: PSV cm/sec EDV cm/sec Common carotid artery 69 12 Maximal internal carotid artery 62 23 External carotid artery 103 Vertebral artery 33 ICA/CCA ratio 0.9 LEFT: PSV cm/sec EDV cm/sec Common carotid artery 62 17 Maximum internal carotid artery 55 16 External carotid artery 89 Vertebral artery 32 ICA/CCA ratio 0.89 Velocities used to determine stenosis are known to correlate with NASCET angiographic criteria. There is antegrade flow in the bilateral vertebral arteries. There is intimal thickening bilaterally. There is also some mixed echogenicity soft and calcified plaque of the bilateral carotid bulbs somewhat greater on the left. No significant focal stenosis is demonstrated grayscale or color images. Impression: 1. There is no evidence of a hemodynamically significant stenosis. There is mixed echogenicity, soft and calcified plaque of the carotid bulbs bilaterally. Electronically signed by: Ryan Forrest MD (08/26/2018 5:00 PM) [id number]
== END | disposition home or self-care (01) ==
LOC: US 12:56
PROVIDERS: ATTEND Family Medicine
DX: I65.23 Occlusion and stenosis of bilateral carotid arteries (principal)
CPT/HCPCS: 93880

== ENCOUNTER 2018-08-29 10:57 | Emergency (ER) | payer MEDICARE, BC ==
[~2018-08-29] VITALS: Ht 175.3 cm; Wt 83.3 kg
--- NOTE | 2018-08-29 11:45 | PHYS DOC ---
Past History Past Medical History: Bronchitis, CAD, CHF, COPD, High Cholesterol, Heart Disease, Hypertension, Vascular Disease Past Surgical History: Other Additional Past Surgical Histo: patient has had stenting bilaterally of his lower iliac trunks, heart stent Smoking: Cigarettes, Less than 1pk/day Alcohol Use: Occasionally Drug Use: None Adult General Chief Complaint Chief Complaint: MECHANICAL FALL [facility] HPI Patient is a 68-year-old male who presents with report of left shoulder and left rib pain after falling at home yesterday. Patient indicates that he had tripped and fallen in his home. He states that he had fallen earlier last week too. He denies having had any head injury or loss of consciousness. Patient states the pain is been quite severe. He does admit to chronic pain and takes morphine for his chronic pain. He indicates that he took his morphine this morning and it didn't do anything to improve his pain.[] Review of Systems Review of Systems Constitutional: Denies fever or chills [] Respiratory: Denies cough or shortness of breath [] Cardiovascular: No additional information not addressed in HPI [] GI: Denies abdominal pain, nausea, vomiting or diarrhea [] Musculoskeletal: Complains of left shoulder and left rib pain [] Neurologic: Denies headache, focal weakness or sensory changes [] Allergies Allergies Allergies Coded Allergies Type Severity Reaction Last Updated Verified chlorpheniramine Allergy Intermediate 08/29/18 Yes disulfiram Allergy Intermediate 08/29/18 Yes phenylephrine Allergy Intermediate 08/29/18 Yes amitriptyline Allergy Unknown 08/29/18 Yes Physical Exam Physical Exam Constitutional: Well developed, well nourished, no acute distress, non-toxic appearance. [] HENT: Normocephalic, atraumatic. [] Neck: Normal range of motion, no tenderness, supple, no stridor. [] Cardiovascular: Regular rate and rhythm. There is reproducible tenderness around the left lateral rib margin in the mid to lower ribs. [] Lungs & Thorax: Bilateral breath sounds clear to auscultation [] Abdomen: Bowel sounds normal, soft, no tenderness. [] Skin: Warm, dry. [] Extremities: Examination of left shoulder demonstrates no deformity. Patient reports tenderness to palpation anteriorly and laterally. Unable to fully assess range of motion due to reported pain. [] Current Patient Data Vital Signs Vital Signs Date Time Temp Pulse Resp B/P (MAP) Pulse Ox O2 Delivery O2 Flow Rate FiO2 08/29/18 11:03 97.7 80 20 97 Room Air EKG EKG [] Radiology/Procedures Radiology/Procedures [] Impressions: PROCEDURE: RIBS LEFT AND PA CHEST SHOULDER 2+V LEFT, RIBS LEFT AND PA CHEST History: Fall on Saturday and last night with left shoulder and rib pain Comparison: 04/08/2017 chest radiograph CHEST and left rib radiographs: Findings: Single view of the chest and 2 views of the left ribs are submitted. Heart size is stable, within normal limits. There is some atherosclerotic calcification near aortic arch. There is no lobar consolidation, pneumothorax, pleural fluid. No displaced left rib fracture is identified by radiographs. Impression: 1. No acute radiographic abnormality is identified. Left shoulder: 3 views of the left shoulder are submitted. No acute fracture or dislocation is identified. IMPRESSION: 1. No acute osseous abnormality is identified by radiographs. Electronically signed by: Ryan Forrest MD (08/29/2018 11:51 AM) [id number] Course & Med Decision Making Course & Med Decision Making Pertinent Labs and Imaging studies reviewed. (See chart for details) [] Dragon Disclaimer Dragon Disclaimer This electronic medical record was generated, in whole or in part, using a voice recognition dictation system. Departure Departure: Impression: Primary Impression: Contusion of left shoulder Additional Impression: Contusion of rib on left side Disposition: 01 HOME, SELF-CARE Condition: STABLE Referrals: FROY DE LOS SANTOS MD (PCP) Patient Instructions: Contusion, Rib Contusion Problem Qualifiers Primary Impression: Contusion of left shoulder Encounter type: initial encounter Qualified Codes: S40.012A - Contusion of left shoulder, initial encounter Additional Impression: Contusion of rib on left side Encounter type: initial encounter Qualified Codes: S20.212A - Contusion of left front wall of thorax, initial encounter RICH RUIZ Jr. DO Aug 29, 2018 11:45
--- NOTE | 2018-08-29 11:54 | RAD ---
SHOULDER 2+V LEFT, RIBS LEFT AND PA CHEST History: Fall on Saturday and last night with left shoulder and rib pain Comparison: 04/08/2017 chest radiograph CHEST and left rib radiographs: Findings: Single view of the chest and 2 views of the left ribs are submitted. Heart size is stable, within normal limits. There is some atherosclerotic calcification near aortic arch. There is no lobar consolidation, pneumothorax, pleural fluid. No displaced left rib fracture is identified by radiographs. Impression: 1. No acute radiographic abnormality is identified. Left shoulder: 3 views of the left shoulder are submitted. No acute fracture or dislocation is identified. IMPRESSION: 1. No acute osseous abnormality is identified by radiographs. Electronically signed by: Ryan Forrest MD (08/29/2018 11:51 AM) [facility]
[2018-08-29 13:05] VITALS: BP 104/60
== END 2018-08-29 13:04 | disposition home or self-care (01) ==
LOC: ER 10:57
DX: S40.012A Contusion of left shoulder, initial encounter (principal); S20.212A Contusion of left front wall of thorax, initial encounter; G89.29 Other chronic pain; I11.0 Hypertensive heart disease with heart failure; I50.9 Heart failure, unspecified; I25.10 Atherosclerotic heart disease of native coronary artery without angina pectoris; J44.9 Chronic obstructive pulmonary disease, unspecified; E78.00 Pure hypercholesterolemia, unspecified; F17.210 Nicotine dependence, cigarettes, uncomplicated; Z88.8 Allergy status to other drugs, medicaments and biological substances; W01.0XXA Fall on same level from slipping, tripping and stumbling without subsequent striking against object, initial encounter; Y93.89 Activity, other specified; Y92.098 Other place in other non-institutional residence as the place of occurrence of the external cause; Y99.8 Other external cause status
CPT/HCPCS: 71101; 73030; 99284

== ENCOUNTER 2018-11-01 16:12 | Emergency (ER) | payer MEDICARE, BC ==
[2018-11-01 16:35] VITALS: BP 113/71
--- NOTE | 2018-11-01 16:39 | PHYS DOC ---
Past History Past Medical History: Bronchitis, CAD, CHF, COPD, High Cholesterol, Heart Disease, Hypertension, Vascular Disease Past Surgical History: Other Additional Past Surgical Histo: patient has had stenting bilaterally of his lower iliac trunks, heart stent Smoking: Cigarettes, Less than 1pk/day Alcohol Use: Occasionally Drug Use: None Adult General Chief Complaint Chief Complaint: LACERATION/AVULSION HPI HPI Patient is a 68-year-old male presents with a left forehead laceration. This happened shortly prior to arrival. Patient had been working on his truck, stood up suddenly to drink some water, and became lightheaded, falling, striking his forehead on the ground. Patient is on Plavix. No loss of consciousness. No change in vision. No nausea or vomiting. Reports feeling better, not lightheaded any more. Bleeding was controlled with pressure. Symptoms are mild. Tetanus vaccine was last administered within the past 5 years.[] Review of Systems Review of Systems Constitutional: Denies fever or chills [] Eyes: Denies change in visual acuity, redness, or eye pain [] HENT: Denies nasal congestion or sore throat [] Respiratory: Denies cough or shortness of breath [] Cardiovascular: No chest pain or palpitations[] GI: Denies abdominal pain, nausea, vomiting, bloody stools or diarrhea [] : Denies dysuria or hematuria [] Musculoskeletal: Denies back pain or joint pain [] Integument: Denies rash or skin lesions, see history of present illness [] Neurologic: Denies headache, focal weakness or sensory changes [] Endocrine: Denies polyuria or polydipsia [] All other systems were reviewed and found to be within normal limits, except as documented in this note. Allergies Allergies Allergies Coded Allergies Type Severity Reaction Last Updated Verified chlorpheniramine Allergy Intermediate 08/29/18 Yes disulfiram Allergy Intermediate 08/29/18 Yes phenylephrine Allergy Intermediate 08/29/18 Yes amitriptyline Allergy Unknown 08/29/18 Yes Physical Exam Physical Exam Constitutional: Well developed, well nourished, no acute distress, non-toxic appearance. [] HENT: Normocephalic, left forehead laceration, approximately 1 cm in length, bleeding is controlled. There is no step-off or crepitus., bilateral external ears normal, TMs are clearno blood or fluid behind the TM. Oropharynx moist, no oral exudates, nose normal. [] Eyes: PERRLA, EOMI, conjunctiva normal, no discharge. [] Neck: Normal range of motion, no tenderness, supple, no stridor. No step-off, no crepitus in the cervical spine [] Cardiovascular:Heart rate regular rhythm, no murmur [] Lungs & Thorax: Bilateral breath sounds clear to auscultation [] Abdomen: Bowel sounds normal, soft, no tenderness, no masses, no pulsatile masses. [] Skin: Warm, dry, no erythema, no rash. [] Back: No tenderness, no CVA tenderness. [] Extremities: No tenderness, no cyanosis, no clubbing, ROM intact, mild bilateral pretibial edema. [] Neurologic: Alert and oriented X 3, normal motor function, normal sensory function, no focal deficits noted. [] Psychologic: Affect normal, judgement normal, mood normal. [] EKG EKG [] Radiology/Procedures Radiology/Procedures PROCEDURE: CT HEAD WO CONTRAST CT head without contrast dated 11/01/2018. Comparison made 10/03/2016. CLINICAL INDICATION: Pain after injury. TECHNIQUE: Per contiguous axial imaging the head was performed from skull base to vertex. No contrast administered. One or more of the following individualized dose reduction techniques were utilized for this examination: 1. Automated exposure control 2. Adjustment of the mA and/or kV according to patient size 3. Use of iterative reconstruction technique. FINDINGS: Ventricles and sulci are within normal limits for age. No midline shift or mass effect. Brain parenchyma is of normal attenuation. No hemorrhage or extra-axial collection. Posterior fossa and brainstem unremarkable. Remote lacunar infarct of the left cerebellum, unchanged. Visualized paranasal sinuses and mastoid air cells are clear. No apparent calvarial abnormality. IMPRESSION: No evidence of acute intracranial abnormality.[] Course & Med Decision Making Course & Med Decision Making Pertinent Labs and Imaging studies reviewed. (See chart for details) ED course: Patient arrived, was placed in bed, in tolerated exam well. Wound was repaired as noted. He was transported to and from radiology with any complications. After return of the imaging findings, these were discussed with the patient and family who voiced understanding. All questions were answered. He was discharged in improved condition. Medical decision making: No evidence of stroke syndrome, intracranial bleed, skull fracture, intractable bleeding, nor this being a cardiac/syncopal event.[] Dragon Disclaimer Dragon Disclaimer This electronic medical record was generated, in whole or in part, using a voice recognition dictation system. Departure Departure: Impression: Primary Impression: Closed head injury Additional Impression: Forehead laceration Disposition: 01 HOME, SELF-CARE Condition: IMPROVED Referrals: FROY DE LOS SANTOS MD (PCP) Follow-up in 2 days Patient Instructions: Head Injury, Adult, Sterile Tape Wound Closure Additional Instructions: Keep the wound clean and dry. Follow-up with your regular doctor in 2 days for a wound check. Return to the ER if worsening pain, change in behavior, nausea or vomiting, or any other concerns. Laceration Repair Lac Repair Indication: Left forehead laceration[] Procedure: The patient was placed in the appropriate position and the area was then cleansed. The laceration was closed with masses all, Steri-Strips, and skin glue. The wound area was then dressed with dural dressing. Total repaired wound length: 1.5 cm. Other Items: None The patient tolerated the procedure well. No complications, hemostasis was achieved. Complications: None. Problem Qualifiers Primary Impression: Closed head injury Encounter type: initial encounter Qualified Codes: S09.90XA - Unspecified injury of head, initial encounter Additional Impression: Forehead laceration Encounter type: initial encounter Qualified Codes: S01.81XA - Laceration without foreign body of other part of head, initial encounter DENISEKAREL SAHU Nov 01, 2018 16:39
--- NOTE | 2018-11-01 17:12 | RAD ---
CT head without contrast dated 11/01/2018. Comparison made 10/03/2016. CLINICAL INDICATION: Pain after injury. TECHNIQUE: Per contiguous axial imaging the head was performed from skull base to vertex. No contrast administered. One or more of the following individualized dose reduction techniques were utilized for this examination: 1. Automated exposure control 2. Adjustment of the mA and/or kV according to patient size 3. Use of iterative reconstruction technique. FINDINGS: Ventricles and sulci are within normal limits for age. No midline shift or mass effect. Brain parenchyma is of normal attenuation. No hemorrhage or extra-axial collection. Posterior fossa and brainstem unremarkable. Remote lacunar infarct of the left cerebellum, unchanged. Visualized paranasal sinuses and mastoid air cells are clear. No apparent calvarial abnormality. IMPRESSION: No evidence of acute intracranial abnormality. Electronically signed by: Tacho Gonzalez MD (11/01/2018 5:09 PM) [facility]
== END 2018-11-01 17:45 | disposition home or self-care (01) ==
LOC: ER 16:12
DX: S01.81XA Laceration without foreign body of other part of head, initial encounter (principal); I25.10 Atherosclerotic heart disease of native coronary artery without angina pectoris; I11.0 Hypertensive heart disease with heart failure; I50.9 Heart failure, unspecified; R51 Headache; E78.00 Pure hypercholesterolemia, unspecified; J44.9 Chronic obstructive pulmonary disease, unspecified; F17.210 Nicotine dependence, cigarettes, uncomplicated; Z88.8 Allergy status to other drugs, medicaments and biological substances; W18.09XA Striking against other object with subsequent fall, initial encounter; Y93.89 Activity, other specified; Y92.89 Other specified places as the place of occurrence of the external cause; Y99.8 Other external cause status
CPT/HCPCS: 12011; 70450; 99284-25

== ENCOUNTER 2018-11-07 13:38 | Emergency (ER) | payer MEDICARE, BC ==
[~2018-11-07] VITALS: Ht 175.3 cm; Wt 83.3 kg
--- NOTE | 2018-11-07 14:10 | PHYS DOC ---
Past History Past Medical History: High Cholesterol, HI Past Surgical History: Other Additional Past Surgical Histo: stents; back sx Smoking: Cigarettes, Less than 1pk/day Alcohol Use: Rarely Drug Use: None Adult General Chief Complaint Chief Complaint: MECHANICAL FALL HPI HPI Patient is a 68-year-old male presents with left knee and leg pain after a fall one week ago. Patient was putting things into the bed of his truck, turned, became lightheaded and fell. He was seen by his vascular surgeon yesterday who advised him to present to the emergency department. Patient is able to walk with severe pain. No new numbness or tingling. Increased pain with movement and amb ulation. No radiation of the pain proximally. Pain is sharp in nature.[] Review of Systems Review of Systems Constitutional: Denies fever or chills [] Eyes: Denies change in visual acuity, redness, or eye pain [] HENT: Denies nasal congestion or sore throat [] Respiratory: Denies cough or shortness of breath [] Cardiovascular: No chest pain or palpitations[] GI: Denies abdominal pain, nausea, vomiting, bloody stools or diarrhea [] : Denies dysuria or hematuria [] Musculoskeletal: Denies back pain, see history of present illness[] Integument: Denies rash or skin lesions [] Neurologic: Denies headache, focal weakness or sensory changes [] Endocrine: Denies polyuria or polydipsia [] All other systems were reviewed and found to be within normal limits, except as documented in this note. Allergies Allergies Allergies Coded Allergies Type Severity Reaction Last Updated Verified chlorpheniramine Allergy Intermediate 08/29/18 Yes disulfiram Allergy Intermediate 08/29/18 Yes phenylephrine Allergy Intermediate 08/29/18 Yes amitriptyline Allergy Unknown 08/29/18 Yes Physical Exam Physical Exam Constitutional: Well developed, well nourished, mild discomfort, non-toxic appearance. [] HENT: Normocephalic, atraumatic, bilateral external ears normal, oropharynx moist, no oral exudates, nose normal. [] Eyes: PERRLA, EOMI, conjunctiva normal, no discharge. [] Neck: Normal range of motion, no tenderness, supple, no stridor. [] Cardiovascular:Heart rate regular rhythm, no murmur [] Lungs & Thorax: Bilateral breath sounds clear to auscultation [] Abdomen: Bowel sounds normal, soft, no tenderness, no masses, no pulsatile masses. [] Skin: Warm, dry, no erythema, no rash. [] Back: No tenderness, no CVA tenderness. [] Extremities: Left lower extremity: There is edema around the knee and calf. Tenderness to palpation in the knee, decreased active range of motion, distally neurovascularly symmetric. The other 3 extremities show: No tenderness, no cyanosis, no clubbing, ROM intact, no edema. [] Neurologic: Alert and oriented X 3, normal motor function, normal sensory function, no focal deficits noted. [] Psychologic: Affect normal, judgement normal, mood normal. [] EKG EKG [] Radiology/Procedures Radiology/Procedures PROCEDURE: KNEE LEFT 4V EXAM: 1. AP, oblique and lateral views left knee 2. AP and lateral views of the left tibia/fibula DATE: 11/07/2018 2:04 PM INDICATION: Pain and swelling, fall, injury COMPARISON: No Prior FINDINGS: Chondrocalcinosis medial and lateral compartment. Patellar enthesopathy. Joint spaces are preserved. No evidence of acute fracture or dislocation. No left knee joint effusion. No definite distal tibial or fibular fracture. Calcaneal enthesopathy. Mild soft tissue swelling seen about the lower leg. No definite retained radiopaque foreign body. IMPRESSION: 1. Soft tissue swelling about the left tibia/fibula without evidence for acute fracture or dislocation of the left knee or lower leg. PROCEDURE: VENOUS LOWER EXTREMITY LEFT Left lower extremity venous real time grayscale, color and spectral duplex ultrasound was performed. History: Left leg pain and swelling Comparison: None The left common femoral, femoral, and popliteal veins demonstrate anechoic lumina, full compressibility, augmentable waveforms, and cephalad color Doppler flow. The posterior tibial are also patent. Normal flow is also seen in the cephalad portion of the saphenous vein. Impression: No evidence of DVT in the left lower extremity. [] Course & Med Decision Making Course & Med Decision Making Pertinent Labs and Imaging studies reviewed. (See chart for details) ED course: Patient arrived, was placed in bed, and tolerated exam well. He was transported to and from ultrasound and radiology with any complications. He was given pain medicines which did improve his discomfort. After the return of the imaging findings, these were discussed with the patient who voiced understanding. All questions were answered. He was discharged in improved condition. Medical decision making: There is no evidence of a fracture or dislocation. No evidence of a DVT. No evidence of ligamentous or meniscus injury. No neurologic compromise. Patient is on Plavix and aspirin making NSAIDs problematic. He is also on long-term narcotic pain medicine. We will add a short-term narcotic for this acute exacerbation in his pain[] Dragon Disclaimer Dragon Disclaimer This electronic medical record was generated, in whole or in part, using a voice recognition dictation system. Departure Departure: Impression: Primary Impression: Left leg injury Disposition: HOME, SELF-CARE Condition: IMPROVED Referrals: FROY DE LOS SANTOS MD (PCP) Follow-up in 2 days Patient Instructions: Crutch Use, Knee Pain Additional Instructions: Follow-up with your regular doctor in 2 days. Apply warm compresses for 15 minutes at a time, at least 4 times a day to the injured area. Return to the ER if worsening pain, weakness, or any other concerns. Scripts Oxycodone Hcl (OXYCODONE HCL IMMED.RELEASE ) 5 Mg Tablet 5 MG PO PRN Q4HRS PRN for PAIN, #20 TAB Prov: KAREL WALKER DO 11/07/18 Problem Qualifiers Primary Impression: Left leg injury Encounter type: initial encounter Qualified Codes: S89.92XA - Unspecified injury of left lower leg, initial encounter KAREL WALKER DO Nov 07, 2018 14:10
[2018-11-07] MEDS ORDERED: oxyCODONE/APAP 5/325 1 TAB TABLET PO ONE (14:15)
--- NOTE | 2018-11-07 14:44 | RAD ---
Left lower extremity venous real time grayscale, color and spectral duplex ultrasound was performed. History: Left leg pain and swelling Comparison: None The left common femoral, femoral, and popliteal veins demonstrate anechoic lumina, full compressibility, augmentable waveforms, and cephalad color Doppler flow. The posterior tibial are also patent. Normal flow is also seen in the cephalad portion of the saphenous vein. Impression: No evidence of DVT in the left lower extremity. Electronically signed by: Scott Pichardo MD (11/07/2018 2:41 PM) [facility]
[2018-11-07 14:56] VITALS: BP 105/57
--- NOTE | 2018-11-07 15:14 | RAD ---
EXAM: 1. AP, oblique and lateral views left knee 2. AP and lateral views of the left tibia/fibula DATE: 11/07/2018 2:04 PM INDICATION: Pain and swelling, fall, injury COMPARISON: No Prior FINDINGS: Chondrocalcinosis medial and lateral compartment. Patellar enthesopathy. Joint spaces are preserved. No evidence of acute fracture or dislocation. No left knee joint effusion. No definite distal tibial or fibular fracture. Calcaneal enthesopathy. Mild soft tissue swelling seen about the lower leg. No definite retained radiopaque foreign body. IMPRESSION: 1. Soft tissue swelling about the left tibia/fibula without evidence for acute fracture or dislocation of the left knee or lower leg. Electronically signed by: Lokesh Winter MD (11/07/2018 3:11 PM) [facility]
[2018-11-07] MEDS ORDERED: OXYC5TAB4 PO (15:28)
== END 2018-11-07 15:43 | disposition home or self-care (01) ==
LOC: ER 13:40
DX: S89.92XA Unspecified injury of left lower leg, initial encounter (principal); M11.262 Other chondrocalcinosis, left knee; E78.00 Pure hypercholesterolemia, unspecified; I25.2 Old myocardial infarction; F17.210 Nicotine dependence, cigarettes, uncomplicated; R42 Dizziness and giddiness; Z88.8 Allergy status to other drugs, medicaments and biological substances; W18.39XA Other fall on same level, initial encounter; Y93.89 Activity, other specified; Y92.89 Other specified places as the place of occurrence of the external cause; Y99.8 Other external cause status
CPT/HCPCS: 73564; 73590; 93971; 99284-25

== ENCOUNTER 2019-01-06 21:10 | Emergency (ER) | payer MEDICARE, BC ==
[~2019-01-06] VITALS: Ht 175.3 cm; Wt 78.0 kg
[~2019-01-06 21:10] MED LIST changes: +OXYC5TAB4 PO
[2019-01-06] MEDS ORDERED: IPRATRPIUM/ALBUTEROL 0.5/2.5MG 3 ML NEBU. ONE (22:56)
[2019-01-06 23:05] VITALS: BP 97/63
--- NOTE | 2019-01-07 06:48 | PHYS DOC ---
Past History Past Medical History: Anxiety, Depression, High Cholesterol, Heart Disease, RI, Other Additional Past Medical Histor: BULGING DISC L4 Past Surgical History: Other Additional Past Surgical Histo: stents; back sx Smoking: Cigarettes, Less than 1pk/day Alcohol Use: Occasionally Drug Use: None Adult General Chief Complaint Chief Complaint: GROIN PAIN HPI HPI Patient is a 68-year-old male with history of chronic neck shoulder and pelvic pain is long-standing who presents with pearly controlled chronic pain. Denies new injury or traumatic complaint. Patient is currently taking morphine and does see a painter structural steel. However, he feels as though his pain is not adequately controlled at this time. Additional history obtained from the patient's significant other. Patient some difficulty staying alert during exam.[] Review of Systems Review of Systems Review symptoms as per history of present illness. All other review symptoms are negative. All other systems were reviewed and found to be within normal limits, except as documented in this note. Current Medications Current Medications Current Medications Medications (Trade) Dose Ordered Sig/Rosalie Start Time Stop Time Status Last Admin Dose Admin Albuterol/ Ipratropium (Duoneb) 3 ml STK-MED ONCE 01/06/19 22:56 01/06/19 22:57 DC Allergies Allergies Allergies Coded Allergies Type Severity Reaction Last Updated Verified chlorpheniramine Allergy Intermediate 08/29/18 Yes disulfiram Allergy Intermediate 08/29/18 Yes phenylephrine Allergy Intermediate 08/29/18 Yes amitriptyline Allergy Unknown 08/29/18 Yes Physical Exam Physical Exam Constitutional: Well developed, well nourished, disheveled. [] HENT: Normocephalic, atraumatic, bilateral external ears normal, oropharynx moist, nose normal. [] Eyes: PERRLA, EOMI, conjunctiva normal, no discharge. [] Neck: Normal range of motion, no tenderness, supple, no stridor. [] Cardiovascular:Heart rate regular rhythm, no murmur [] Lungs & Thorax: Bilateral breath sounds clear to auscultation [] Abdomen: Bowel sounds normal, soft, no tenderness. [] Skin: Warm, dry, no erythema, no rash. [] Back: Diffuse back pain. [] Extremities: Right shoulder/hip pain, tenderness pain with range of motion.. [] Neurologic: Alert and oriented X 3, normal motor function, normal sensory function, no focal deficits noted. [] Psychologic: Affect normal, judgement normal, mood normal. [] Current Patient Data Vital Signs Vital Signs Date Time Temp Pulse Resp B/P (MAP) Pulse Ox O2 Delivery O2 Flow Rate FiO2 01/06/19 23:05 84 18 97/63 (74) 98 Room Air 01/06/19 21:40 97.9 EKG EKG [] Radiology/Procedures Radiology/Procedures [] Course & Med Decision Making Course & Med Decision Making Pertinent Labs and Imaging studies reviewed. (See chart for details) [Given the chronic nature the patient's symptoms and his current usage of controlled substances, I recommended that the patient continued to follow-up with his PCP and painter structural steel for additional treatment recommendedations] Oral Disclaimer Oral Disclaimer This electronic medical record was generated, in whole or in part, using a voice recognition dictation system. Departure Departure: Impression: Primary Impression: Chronic pain Disposition: 01 HOME/RESIDENCE PRIOR TO ADM Condition: STABLE Patient Instructions: Chronic Pain Additional Instructions: Please follow-up with your PCP for management of chronic pain. BANG GARCIA DO Jan 07, 2019 06:48
== END 2019-01-06 23:05 | disposition home or self-care (01) ==
LOC: ER 21:10
DX: G89.29 Other chronic pain (principal); M54.2 Cervicalgia; M25.511 Pain in right shoulder; R10.2 Pelvic and perineal pain; E78.00 Pure hypercholesterolemia, unspecified; I25.2 Old myocardial infarction; F17.210 Nicotine dependence, cigarettes, uncomplicated; Z88.8 Allergy status to other drugs, medicaments and biological substances
CPT/HCPCS: 99284

== ENCOUNTER 2020-04-30 11:34 | Emergency (ER) | payer MEDICARE, BC ==
[~2020-04-30] VITALS: Ht 175.3 cm; Wt 84.4 kg
[~2020-04-30 11:34] MED LIST changes: +AMLO-187 PO; -AMLO10TA8 PO; +FENO145T3 PO; -FENO145T30 PO
[2020-04-30 11:45] VITALS: BP 118/60
--- NOTE | 2020-04-30 11:53 | PHYS DOC ---
Past History Past Medical History: Anxiety, Depression, High Cholesterol, Heart Disease, NH, Other Additional Past Medical Histor: BULGING DISC L4 (KAM SERRANO DO) Past Surgical History: Other Additional Past Surgical Histo: stents; back sx (KAM SERRANO DO) Smoking: Cigarettes, Less than 1pk/day Alcohol Use: Occasionally Drug Use: None (KAM SERRANO DO) Adult General Chief Complaint Chief Complaint: SHOULDER INJURY HPI HPI Patient is 69-year-old male presents emergency department with right shoulder pain reporting yesterday he was moving a nightstand when he lost his monitoring specialist and it pulled his right arm while trying to catch it before it hit the ground. Patient denies any blunt injury to his right shoulder, states it now hurts to move and touch. Patient denies any numbness or tingling down his right extremity, denies any other injuries to his body. Patient denies any other physical complaints or physical concerns. Patient states that he takes medications for low back disc problems, states he took his 60 mg of morphine this morning along with to 10 mg Flexeril's and 1 hydrocodone also applied topical anesthesia type cream to his shoulder without relief of pain that he rates a 10/10 on a 1-10 pain scale. Patient denies any nausea or vomiting, dizziness, headaches, recent fever or chills, abdominal pains. (APRIL ASHER APRN) Review of Systems Review of Systems 14 body systems of review of systems have been reviewed. See HPI for pertinent positives and negative responses, otherwise all other systems are negative, nonpertinent or noncontributory. (APRIL ASHER APRN) Allergies Allergies Allergies Coded Allergies Type Severity Reaction Last Updated Verified chlorpheniramine Allergy Intermediate 08/29/18 Yes disulfiram Allergy Intermediate 08/29/18 Yes phenylephrine Allergy Intermediate 08/29/18 Yes amitriptyline Allergy Unknown 08/29/18 Yes (KAM SERRANO DO) Physical Exam Physical Exam Constitutional: Well developed, well nourished, no acute distress, non-toxic appearance. Presents with homemade sling on right upper extremity, patient grimacing with pain. HENT: Normocephalic, atraumatic, bilateral external ears normal, oropharynx moist, no oral exudates, nose normal. No lymphadenopathy appreciated of the head or neck. Eyes: PERRLA, EOMI, conjunctiva normal, no discharge. Neck: Normal range of motion, no tenderness, supple, no stridor. No nuchal rigidity, no C-spine pain to palpation, no meningismus signs appreciated. Cardiovascular:Heart rate regular rhythm, heart sounds S1-S2 to auscultation. Lungs & Thorax: Bilateral breath sounds clear to auscultation, no adventitious lung sounds appreciated. Abdomen: Bowel sounds normal, soft, no tenderness, no masses, no pulsatile ma sses. Skin: Warm, dry, no erythema, no rash. Back: No tenderness to palpation along spinal bony prominences or adjacent structures of the back. Extremities: No tenderness, no cyanosis, no clubbing, ROM intact, no edema. Except for right shoulder, limited passive range of motion related to pain, pain to palpation along anterior shoulder, patient unable to lift arm related to complaints of pain, distal cap refill less than 2 seconds, 2+ radial pulse, full AROM/PROM of elbow, wrist, hand and fingers. No decreased sensation distal to shoulder pain. No crepitus appreciated, no swelling appreciated, no ecchymotic areas appreciated. Neurologic: Alert and oriented X 3, normal motor function, normal sensory function, no focal deficits noted. Psychologic: Affect normal, judgement normal, mood normal. (APRIL ASHER APRN) EKG EKG [] (KAM SERRANO DO) Radiology/Procedures Radiology/Procedures [] (KAM SERRANO DO) Radiology/Procedures PATIENT: MAURICE BRADEN EACCOUNT: [id number] : 1950 LOCATION: ER AGE: 69 SEX: M EXAM STATUS: REG ER ORD. PHYSICIAN: APRIL ASHER APRN REASON: Injury from fall 04/28/20, pain to right shoulder Hx: Prior surger PROCEDURE: SHOULDER 2+V RIGHT Three-view right shoulder study Clinical indications: Injury from a fall on April 18, 2020. Right shoulder pain. FINDINGS: No acute fracture or dislocation or lytic process is seen. No AC joint separation is evident. There is a small accessory ossicle just inferior to the right AC joint. IMPRESSION: No acute osseous abnormality. Electronically signed by: Eugenio Payne MD (04/30/2020 12:42 PM) [id number] DICTATED AND SIGNED BY: EUGENIO PAYNE MD DATE: 04/30/20 1240 CC: APRIL ASHER APRN; KAM SERRANO DO; FROY DE LOS SANTOS MD ~MTH0 0 (PARIL ASHER APRN) Heart Score Risk Factors: Risk Factors: DM, Current or recent (<one month) smoker, HTN, HLP, family history of CAD, obesity. Risk Scores: Risk Factors: DM, Current or recent (<one month) smoker, HTN, HLP, family history of CAD, obesity. (KAM SERRANO DO) C/O Chest Pain: No (APRIL ASHER APRN) Course & Med Decision Making Course & Med Decision Making I oversaw on the above date of service of this patient and discussed the care with the GROUND WIRER. I agree with the findings, plan of care, and disposition as documented. Electronically signed, Kam Serrano DO (KAM SERRANO DO) Course & Med Decision Making 69-year-old male, vital signs reviewed, presents to the emergency department with concerns of right shoulder pain after trying to catch a cabinet he was carrying in which she lost monitoring specialist of, there was no blunt injury to the shoulder. Physical examination concerning for possible shoulder injury, and x-ray was ordered. Patient complained of 10/10 pain, however patient takes 60 mg of morphine twice a day, as needed Flexeril, as needed hydrocodone for chronic low back pain, discussed with patient concerns for further narcotic pain medications, patient states he does not require anything else for pain as he treats his pain at home. Patient stated he was just concerned that he possibly broke her shoulder. No pain medication ordered. X-ray read negative for acute fracture or abnormality interpreted by house radiologist. Discussed findings with patient, will place patient in sling, use ice packs 30 minutes on 30 minutes off while awake, have patient follow-up with his primary care doctor on Saturday for reevaluation and consideration of possible MRI for further investigation. Sling applied to left upper extremity with ice pack application per ED platen press operator apprentice staff. Upon reexamination of the patient, patient continues to complain of right shoulder pain, states he will treat with home medications for pain, right upper extremity remains neurovascular intact, satisfactory application of sling. Patient gave verbal understanding of sling use, ice pack use, discharge home instructions, PCP follow-up, return to ER precautions and concerns, was discharged home without incident. (APRIL ASHER APRN) [place]on Disclaimer Dragon Disclaimer This electronic medical record was generated, in whole or in part, using a voice recognition dictation system. (KAM SERRANO DO) Departure Departure: Impression: Primary Impression: Right shoulder pain Disposition: 01 DC HOME SELF CARE/HOMELESS Condition: GOOD Referrals: FROY DE LOS SANTOS MD (PCP) Patient Instructions: Sling Use After Injury or Surgery Additional Instructions: I have examined your right shoulder, performed an x-ray, the x-ray did not show any fracture, dislocation, or shoulder separation. Please use sling for comfort, ice packs 30 minutes on 30 minutes off while awake, continue to use your home pain medications for discomfort, I encourage you to follow-up with Dr. DE LOS SANTOS this Saturday for reevaluation of your shoulder pain as he may consider further investigation with an MRI. Return to the emergency department for worsening symptoms or other concerns. EMERGENCY DEPARTMENT GENERAL DISCHARGE INSTRUCTIONS Thank you for coming to [facility] (ED) today and trusting us with you care. We trust that you had a positivie experience in our Emergency Department. If you wish to speak to the department management, you may call the director at [phone]. YOUR FOLLOW UP INSTRUCTIONS ARE FOLLOWS: 1. Do you have a private Doctor? If you do not have a private doctor, please ask for a resource list of physicians or clinics that may be able to assist you with follow up care. 2. The Emergency Physician has interpreted your x-rays. The X-Ray specialist will also review them. If there is a change in the findings, you will be notified in 48 hours when at all possible. 3. A lab test or culture has been done, your results will be reviewed and you will be notified if you need a change in treatment. ADDITIONAL INSTRUCTIONS AND INFORMATION: 1. Your care today has been supervised by a physician who is specially trained in emergency care. Many problems require more than one evaluation for a complete diagnosis and treatment. We recommend that you schedule your follow up appointment as recommended to ensure complete treatment of you illness or injury. If you are unable to obtain follow up care and continue to have a problem, or if your condition worsens, we recommend that you return to the ED. 2. We are not able to safely determine your condition over the phone nor are we able to give sound medical advice over the phone. For these safety reasons, if you call for medical advice we will ask you to come to the ED for further evaluation. 3. If you have any questions regarding these discharge instructions please call the ED at [phone]. SAFETY INFORMATION: In the interest of safety, wellness, and injury prevention; we encourage you to wear your sealbelt, if you smoke; quite smoking, and we encourage family to use a protective helmet for bicycling and other sporting events that present an increased risk for head injury. IF YOUR SYMPTOMS WORSEN OR NEW SYMPTOMS DEVELOP, OR YOU HAVE CONCERNS ABOUT YOUR CONDITION; OR IF YOUR CONDITION WORSENS WHILE YOU ARE WAITING FOR YOUR FOLLOW UP APPOINTMENT; EITHER CONTACT YOUR PRIMARY CARE DOCTOR, THE PHYSICIAN WHOSE NAME AND NUMBER YOU WERE GIVEN, OR RETURN TO THE ED IMMEDIATELY. Problem Qualifiers Primary Impression: Right shoulder pain Chronicity: acute Qualified Codes: M25.511 - Pain in right shoulder KAM SERRANO DO Apr 30, 2020 11:53 APRIL ASHER APRN Apr 30, 2020 12:21
--- NOTE | 2020-04-30 12:44 | RAD ---
Three-view right shoulder study Clinical indications: Injury from a fall on April 18, 2020. Right shoulder pain. FINDINGS: No acute fracture or dislocation or lytic process is seen. No AC joint separation is eviden t. There is a small accessory ossicle just inferior to the right AC joint. IMPRESSION: No acute osseous abnormality. Electronically signed by: Tereso Payne MD (04/30/2020 12:42 PM) [id number]
== END 2020-04-30 13:00 | disposition home or self-care (01) ==
LOC: ER 11:34
DX: M25.511 Pain in right shoulder (principal); F41.9 Anxiety disorder, unspecified; F32.9 Major depressive disorder, single episode, unspecified; E78.00 Pure hypercholesterolemia, unspecified; I25.2 Old myocardial infarction; F17.210 Nicotine dependence, cigarettes, uncomplicated; Z88.8 Allergy status to other drugs, medicaments and biological substances
CPT/HCPCS: 73030; 99283

== ENCOUNTER → 2020-09-01 | Outpatient (CLI) | payer MEDICARE, BC ==
[2020-09-01 15:20] LABS: ALBUMIN 3.1 g/dL (3.4-5.0); ALBUMIN/GLOBULIN RATIO 0.7 (1.0-1.7); CREATININE 1.1 mg/dL (0.7-1.3); GFR 66.2; TOTAL BILIRUBIN 0.2 mg/dL (0.2-1.0); TOTAL PROTEIN 7.6 g/dL (6.4-8.2)
== END ==
LOC: LAB 13:50
PROVIDERS: ATTEND Internal Medicine Gastroenterology
DX: R10.9 Unspecified abdominal pain (principal)
CPT/HCPCS: 36415; 80053; 82150; 83690; 86301

== ENCOUNTER → 2021-01-02 | Outpatient (CLI) | payer MEDICARE, BC ==
[~2021-01-02] MED LIST changes: +ALBU2.5V5 NEB; +APIX5TAB5 PO; +ASCO500C PO; +BUPR150T11 PO; +CEFD300C PO; -CYCL-331 PO; +CYCL10TA19 PO; +FURO20TA3 PO; +GABA-586 PO; +HYDR-2155 PO; +METF500T16 PO; +MORP-16 PO; +POTA-121 PO; +POTA10TA12 PO; -POTA20TA4 PO; +PRAZ2CAP2 PO; +QUET100T4 PO; +SENN8.6T11 PO; +SERT100T PO; +SULF1TAB24 PO; +TIOT18CA IH
[2021-01-02 12:33] LABS: BASO % 0 % (0-3); EOS # 0.2 x10^3/uL (0.0-0.7); EOS % 3 % (0-3); HEMATOCRIT 35.3 % (39.0-53.0); HEMOGLOBIN 11.5 g/dL (13.0-17.5); LYMPH # 1.3 x10^3/uL (1.0-4.8); LYMPH % 17 % (24-48); MEAN CORPUSCULAR HEMOGLOBIN 28 pg (25-35); MEAN CORPUSCULAR HGB CONC 33 g/dL (31-37); MEAN CORPUSCULAR VOLUME 87 fL (79-100); MONO # 0.4 x10^3/uL (0.0-1.1); MONO % 5 % (0-9); NEUT # 5.9 x10^3uL (1.8-7.7); NEUT % 76 % (31-73); PLATELET COUNT 130 x10^3/uL (140-400); RED BLOOD COUNT 4.04 x10^6/uL (4.30-5.70); RED CELL DISTRIBUTION WIDTH 16.4 % (11.5-14.5); WHITE BLOOD COUNT 7.8 x10^3/uL (4.0-11.0)
[2021-01-02 12:48] LABS: ALBUMIN 3.1 g/dL (3.4-5.0); ALBUMIN/GLOBULIN RATIO 0.8 (1.0-1.7); CALCIUM 8.8 mg/dL (8.5-10.1); CREATININE 1.3 mg/dL (0.7-1.3); GFR 54.6; POTASSIUM 3.9 mmol/L (3.5-5.1); TOTAL BILIRUBIN 0.2 mg/dL (0.2-1.0)
== END ==
LOC: SPEC 12:19
PROVIDERS: ATTEND Internal Medicine Infectious Disease
DX: M86.171 Other acute osteomyelitis, right ankle and foot (principal)
CPT/HCPCS: 36415; 80053; 85025; 86140

== ENCOUNTER 2021-01-06 18:06 | Inpatient (IN) | payer MEDICARE, BC ==
[~2021-01-06] VITALS: Ht 175.3 cm; Wt 90.5 kg
[~2021-01-06 18:06] MED LIST changes: -ALBU2.5V5 NEB; -APIX5TAB5 PO; -ASCO500C PO; -BUPR150T11 PO; -CEFD300C PO; -FURO20TA3 PO; -GABA-586 PO; -HYDR-2155 PO; -METF500T16 PO; -MORP-16 PO; -POTA10TA12 PO; -PRAZ2CAP2 PO; -QUET100T4 PO; -SENN8.6T11 PO; -SERT100T PO; -SULF1TAB24 PO; -TIOT18CA IH
--- NOTE | 2021-01-06 18:43 | PHYS DOC ---
Past History Past Medical History: Bronchitis, CAD, Depression, GERD, High Cholesterol, Hypertension, Migraines, Prostatitis, Other Additional Past Medical Histor: RLS, osteomylitits toe (CHARLES DESAI APRN) Past Medical History: Anemia, Cancer (EH GRIFFIN MD) Past Surgical History: Other Additional Past Surgical Histo: CARDIAD AND LEG STENTS, BILATERAL SHOULDER. BACK X 5-6 (CHARLES DESAI APRN) Smoking: Cigarettes, Less than 1pk/day Alcohol Use: Occasionally Drug Use: None (CHARLES DESAI APRN) General Adult EDM: Chief Complaint: OTHER COMPLAINTS HPI: HPI: Patient is a 70-year-old male that presents today stating that his infectious disease doctors office told him to come to the nearest emergency department to have his right PICC line removed due to a blood clot. Patient was at the [facility] and was seen in the infusion clinic and in the wound care clinic he then had an ultrasound done of his upper arm due to pain and swelling, while patient was at the [facility] I the received a call stating that there was a blood clot in the arm and he will need to have that removed, patient was already home when this happened, they present here to [facility] for removal of the PICC line. Patient currently has antibiotics infusing through the PICC line per the the does change that out every 24 hours, the infusion is not labeled so unknown antibiotic at this time. (CHARLES DESAI APRN) Review of Systems: Review of Systems: Constitutional: Denies fever or chills Eyes: Denies change in visual acuity HENT: Denies nasal congestion or sore throat Respiratory: Denies cough or shortness of breath Cardiovascular: Denies chest pain or edema GI: Denies abdominal pain, nausea, vomiting, bloody stools or diarrhea : Denies dysuria Musculoskeletal: Denies back pain or joint pain Integument: Denies rash Neurologic: Denies headache, focal weakness or sensory changes Endocrine: Denies polyuria or polydipsia Lymphatic: Denies swollen glands Psychiatric: Denies depression or anxiety (CHARLES DESAI APRN) Allergies: Allergies: Allergies Coded Allergies Type Severity Reaction Last Updated Verified chlorpheniramine Allergy Intermediate 01/06/21 Yes disulfiram Allergy Intermediate 01/06/21 Yes phenylephrine Allergy Intermediate 01/06/21 Yes amitriptyline Allergy Unknown 01/06/21 Yes (CHARLES DESAI APRN) Physical Exam: PE: Constitutional: Well developed, well nourished, no acute distress, non-toxic appearance. [] HENT: Normocephalic, atraumatic, bilateral external ears normal, oropharynx moist, no oral exudates, nose normal. [] Eyes: PERRLA, EOMI, conjunctiva normal, no discharge. [] Neck: Normal range of motion, no tenderness, supple, no stridor. [] Cardiovascular:Heart rate regular rhythm, no murmur [] Lungs & Thorax: Bilateral breath sounds clear to auscultation [] Abdomen: Bowel sounds normal, soft, no tenderness, no masses, no pulsatile masses. [] Skin: Warm, dry, no erythema, no rash. [] Back: No tenderness, no CVA tenderness. [] Extremities: No tenderness, no cyanosis, no clubbing, ROM intact, no edema. [] Neurologic: Alert and oriented X 3, normal motor function, normal sensory function, no focal deficits noted. [] Psychologic: Affect normal, judgement normal, mood normal. [] (CHARLES DESAI APRN) Current Patient Data: Labs: Laboratory Tests Test 01/06/21 19:20 White Blood Count 8.1 x10^3/uL Red Blood Count 4.20 x10^6/uL Hemoglobin 11.7 g/dL Hematocrit 37.3 % Mean Corpuscular Volume 89 fL Mean Corpuscular Hemoglobin 28 pg Mean Corpuscular Hemoglobin Concent 31 g/dL Red Cell Distribution Width 16.6 % Platelet Count 149 x10^3/uL Neutrophils (%) (Auto) 64 % Lymphocytes (%) (Auto) 24 % Monocytes (%) (Auto) 8 % Eosinophils (%) (Auto) 4 % Basophils (%) (Auto) 1 % Neutrophils # (Auto) 5.2 x10^3uL Lymphocytes # (Auto) 1.9 x10^3/uL Monocytes # (Auto) 0.6 x10^3/uL Eosinophils # (Auto) 0.3 x10^3/uL Basophils # (Auto) 0.0 x10^3/uL Prothrombin Time 10.5 SEC Prothromb Time International Ratio 1.0 Activated Partial Thromboplast Time 27 SEC Sodium Level 142 mmol/L Potassium Level 4.5 mmol/L Chloride Level 105 mmol/L Carbon Dioxide Level 27 mmol/L Anion Gap 10 Blood Urea Nitrogen 19 mg/dL Creatinine 1.4 mg/dL Estimated GFR (Cockcroft-Gault) 50.1 Glucose Level 66 mg/dL Calcium Level 9.1 mg/dL Vital Signs: Vital Signs Date Time Temp Pulse Resp B/P (MAP) Pulse Ox O2 Delivery O2 Flow Rate FiO2 01/06/21 18:23 98.1 75 18 118/71 (87) 97 Room Air (CHARLES DESAI APRN) EKG: EKG: [] (CHARLES DESAI APRN) Radiology/Procedures: Radiology/Procedures: [] (CHARLES DESAI APRN) Radiology/Procedures: [place] [address] IMAGING REPORT Signed PATIENT: MAURICE BRADEN EACCOUNT: [id number] : 1950 LOCATION: ER AGE: 70 SEX: M EXAM STATUS: REG ER ORD. PHYSICIAN: CHARLES DESAI APRN REASON: possible blood clot in picc line PROCEDURE: VENOUS UPPER EXTREMITY RIGHT EXAM: Right upper extremity venous Doppler. HISTORY: Right upper extremity pain/swelling. COMPARISON: None. FINDINGS: Grayscale and Doppler analysis of the right upper extremity deep venous system was performed with graded compression and augmentation. The internal jugular, subclavian, axillary, brachial, basilic, cephalic, radial and ulnar veins were assessed. There is no evidence of deep venous thrombosis. IMPRESSION: 1. No evidence of deep venous thrombosis. Electronically signed by: Dori Alexander MD (01/06/2021 11:53 PM) [facility] DICTATED AND SIGNED BY: MAGALYS ALEXANDER MD DATE: 01/06/21 5735 CC: CHARLES DESAI APRN; EH GRIFFIN MD; FROY DE LOS SANTOS MD ~MTH0 0 (EH GRIFFIN MD) Heart Score: C/O Chest Pain: N/A Risk Factors: Risk Factors: DM, Current or recent (<one month) smoker, HTN, HLP, family history of CAD, obesity. Risk Scores: Score 0 - 3: 2.5% MACE over next 6 weeks - Discharge Home Score 4 - 6: 20.3% MACE over next 6 weeks - Admit for Clinical Observation Score 7 - 10: 72.7% MACE over next 6 weeks - Early Invasive Strategies (CHARLES DESAI APRN) Course & Med Decision Making: Course & Med Decision Making Pertinent Labs and Imaging studies reviewed. (See chart for details) 1844 called [phone] which is the infectious disease group at the [facility] I talked with answering service and left a message for them to call me regarding plan of care with this patient. 1849 Dr. Santos returned call for the infectious disease department at the [facility] she stated that the patient does indeed have a DVT that extends into the axillary area of the PICC line she was unable to fax or send those results to me at this time she stated that there was the intention of Dr. Palumbo to stop the antibiotic infusion that is currently going he also wanted the patient placed on Lovenox 90 mg for treatment of his DVT but because [facility] he was unable to get those preapproved so he was sent to the emergency department for admission and treatment of his DVT and his right upper arm. Discussed the plan of care with patient and significant other they are agreeable to the plan spoke to the ER nurse as well will do some labs and continue to get the ultrasound of the arm. 1909 Dr. Santos return call and said patient was on Zosyn 4.5 g every 6 hours and they were asking if we could continue that while he is in the hospital. 2099 continue to await ultrasound 2129 patient to ultrasound 2228 awaiting ultrasound results [address] Griffin continue to await ultrasound results (CHARLES DESAI APRN) Course & Med Decision Making See Chidi chart for details. Reviewed Meds note at [facility]- Last note- advised to pull line and tx for DVT, Zosyn 4.5 gm . Will Add Vancomycin. Impression: 1. Hx. of DVT's ( No current DVT on Pic line at this time, but will pull per [facility] note) 2. Continue Lovenox as per [facility] notes 3. Hx. PVDz 4. Hx osteomyelitis right foot-currently treated with Zosyn and hyperbaric oxygen - [facility] 5. DM Discussed presentation, testing and tx plan with Dr. Concepcion. (EH GRIFFIN MD) Oral Disclaimer: Oral Disclaimer: This electronic medical record was generated, in whole or in part, using a voice recognition dictation system. (CHARLES DESAI APRN) Departure Departure: Referrals: FROY DE LOS SANTOS MD (PCP) Oral Disclaimer This chart was dictated in whole or in part using Voice Recognition software in a busy, high-work load, and often noisy Emergency Department environment. It may contain unintended and wholly unrecognized errors or omissions. (EH GRIFFIN MD) CHARLES DESAI APRN Jan 06, 2021 18:43 EH GRIFFIN MD Jan 07, 2021 00:05
[2021-01-06 19:52] LABS: BASO % 1 % (0-3); EOS # 0.3 x10^3/uL (0.0-0.7); EOS % 4 % (0-3); HEMATOCRIT 37.3 % (39.0-53.0); HEMOGLOBIN 11.7 g/dL (13.0-17.5); LYMPH # 1.9 x10^3/uL (1.0-4.8); LYMPH % 24 % (24-48); MEAN CORPUSCULAR HEMOGLOBIN 28 pg (25-35); MEAN CORPUSCULAR HGB CONC 31 g/dL (31-37); MEAN CORPUSCULAR VOLUME 89 fL (79-100); MONO # 0.6 x10^3/uL (0.0-1.1); MONO % 8 % (0-9); NEUT # 5.2 x10^3uL (1.8-7.7); NEUT % 64 % (31-73); PLATELET COUNT 149 x10^3/uL (140-400); RED CELL DISTRIBUTION WIDTH 16.6 % (11.5-14.5); WHITE BLOOD COUNT 8.1 x10^3/uL (4.0-11.0)
[2021-01-06 20:06] LABS: CALCIUM 9.1 mg/dL (8.5-10.1); CREATININE 1.4 mg/dL (0.7-1.3); GFR 50.1; POTASSIUM 4.5 mmol/L (3.5-5.1)
--- NOTE | 2021-01-06 23:55 | RAD ---
EXAM: Right upper extremity venous Doppler. HISTORY: Right upper extremity pain/swelling. COMPARISON: None. FINDINGS: Grayscale and Doppler analysis of the right upper extremity deep venous system was performe d with graded compression and augmentation. The internal jugular, subclavian, axillary, brachial, bas ilic, cephalic, radial and ulnar veins were assessed. There is no evidence of deep venous thrombosis. IMPRESSION: 1. No evidence of deep venous thrombosis. Electronically signed by: Dori Alexander MD (01/06/2021 11:53 PM) [facility]
[2021-01-07] MEDS ORDERED: ACETAMINOPHEN 325 MG TABLET PO PRN (01:00)
[2021-01-07] MEDS ORDERED: ENOXAPARIN ** NOTE DOSE ** SYRINGE SQ ONE (01:00)
[2021-01-07] MEDS ORDERED: VANCOMYCIN 1 GM in IV NORMAL SALINE 250ML 250 ML IV ONE (01:00)
[2021-01-07] MEDS ORDERED: ONDANSETRON PF 4 MG/2 ML VIAL. IVP PRN (01:00)
[2021-01-07] MEDS ORDERED: IV RINGERS SOLUTION,LACTATED 1,000 ML IV ONE (01:00)
[2021-01-07] MEDS ORDERED: PIPERACILLIN/TAZOBACTAM 4.5 GM in IV NORMAL SALINE 50ML 50 ML IV ONE (01:00)
[2021-01-07] MEDS ORDERED: IV NORMAL SALINE 50ML 50 ML ONE (01:12)
[2021-01-07] MEDS ORDERED: PIPERACILLIN/TAZOBACTAM 4.5 GM VIAL IV ONE (01:12)
[2021-01-07] MEDS ORDERED: VANCOMYCIN 2 GM in IV NORMAL SALINE 500ML 500 ML IV ONE (01:15)
[2021-01-07] MEDS ORDERED: IV NORMAL SALINE 500ML 500 ML ONE (02:01)
[2021-01-07] MEDS ORDERED: VANCOMYCIN 1 GM VIAL. ONE (02:01)
[2021-01-07 02:45] VITALS: BP 123/72
--- NOTE | 2021-01-07 02:45 | NUR ---
The patient, MAURICE BRADEN, 70 y/o, M admitted by LUIS CARLOS BURNHAM MD, was given written information regarding hospital policies, unit procedures and contact persons. Valuables were checked and vitals obtained. Pt is A&Ox4 able to express own concerns. Pt is admitted with osteomyelitis to E (3rd toe). Pt is currently resting in bed with no complaints. Will continue to monitor.
[2021-01-07] MEDS ORDERED: QUET100T4 PO (04:19)
[2021-01-07] MEDS ORDERED: SERT100T PO (04:19)
[2021-01-07] MEDS ORDERED: ASCO500C PO (04:19)
[2021-01-07] MEDS ORDERED: METF500T16 PO (04:19)
[2021-01-07] MEDS ORDERED: PRAZ2CAP2 PO (04:19)
[2021-01-07] MEDS ORDERED: FURO20TA3 PO (04:19)
[2021-01-07] MEDS ORDERED: BUPR150T11 PO (04:19)
[2021-01-07] MEDS ORDERED: POTA10TA12 PO (04:19)
[2021-01-07] MEDS ORDERED: HYDR-2155 PO (04:19)
[2021-01-07] MEDS ORDERED: GABA-586 PO (04:19)
[2021-01-07] MEDS ORDERED: SULF1TAB24 PO (04:19)
[2021-01-07] MEDS ORDERED: TIOT18CA IH (04:19)
[2021-01-07] MEDS ORDERED: ALBU2.5V5 NEB (04:19)
[2021-01-07] MEDS ORDERED: SENN8.6T11 PO ×2 (04:19)
[2021-01-07] MEDS ORDERED: CEFD300C PO (04:19)
[2021-01-07] MEDS ORDERED: ALBUTEROL SULFATE 2.5 MG/3 ML NEBU. NEB PRN (04:45)
[2021-01-07] MEDS ORDERED: VANCOMYCIN PER PHARMACY MC PRN (04:45)
[2021-01-07] MEDS ORDERED: HYDROcodone/APAP 5/325MG 1 TAB TABLET PO PRN (04:45)
[2021-01-07] MEDS ORDERED: ALBUTEROL SULFATE 2.5 MG/3 ML NEBU. INH PRN (04:45)
[2021-01-07] MEDS ORDERED: CYCLOBENZAPRINE 10 MG TABLET. PO PRN (04:45)
[2021-01-07] MEDS ORDERED: MORP-16 PO (04:50)
[2021-01-07] MEDS ORDERED: SUMAtriptan SUCCINATE 50 MG TABLET PO PRN (05:15)
--- NOTE | 2021-01-07 05:15 | NUR ---
Pharmacy Vancomycin Dosing Note S:Consulted to monitor and dose vancomycin started 01/07/21. O:MAURICE BRADEN is a 70 year old M with Osteomyelitis, . Height: 5 feet, 9 inches Weight: 90.5 kg [place] Body Weight: 70.70 Adjusted Body Weight: 78.62 Dosing Weight: Actual Other Antibiotics: ZOSYN 3.375 GM Q6H LABS: Last BUN: 19 Last Creatinine: 1.4 Creatinine Clearance: 54 Last WBC: 8.1 Last Procalcitonin: Tmax (past 24 hours): Microbiology: I/O: Drug Levels: Last level: on at Last dose given 01/07/21 at 0230 Vancomycin Dosing: Loading Dose: 2000 mg x1 Dosing Weight: Actual Target Trough: 15-20 A: Based on: WT AND CRCL P: 1. Begin Vancomycin 1500 mg IV q24h 2. Follow up Trough level on 01/09/21 at 0130 3. Pharmacy will continue to monitor, follow and adjust therapy as needed. KOFFI RINCON RPH, 01/07/21 0515 Signed: 01/07/21 at 05 by KOFFI RINCON RPH PHA
[2021-01-07] MEDS: IPRATRPIUM/ALBUTEROL 0.5/2.5MG 3 ML NEBU. NEB SCH ×2 (05:59→12:00)
[2021-01-07] MEDS ORDERED: PIPERACILLIN/TAZOBACTAM 4.5 GM in IV NORMAL SALINE 50ML 50 ML IV SCH (06:00)
[2021-01-07 06:15] VITALS: BP 136/63
--- NOTE | 2021-01-07 07:20 | NUR ---
wrong lab ordered vanco trough instead of vanco peak vanco trough read critical due to vanco having just completed. new lab ordered for vanco peak
[2021-01-07 07:39] LABS: VANC PK 30.8 mcg/mL (20.0-40.0)
[2021-01-07] MEDS ORDERED: IPRATRPIUM/ALBUTEROL 0.5/2.5MG 3 ML NEBU. NEB SCH (08:00)
[2021-01-07] MEDS ORDERED: BUDESONIDE 0.5 MG/2 ML NEBU NEB SCH (08:00)
[2021-01-07] MEDS: FLUTICASONE 50MCG/NASAL SPRAY 16GM BOTTLE. NS SCH (09:00)
[2021-01-07] MEDS: TAMSULOSIN 0.4 MG CAP.ER.24H. PO SCH (09:00)
[2021-01-07] MEDS: ENOXAPARIN ** NOTE DOSE ** SYRINGE SQ SCH ×2 (09:07→21:45)
[2021-01-07] MEDS: buPROPion SR 150 MG TABLET.SA PO SCH ×2 (09:07→21:44)
[2021-01-07] MEDS: LACTOBACILLUS RHAMNOSUS GG 1 CAPSULE. PO SCH ×2 (09:07→21:44)
[2021-01-07] MEDS: MORPHINE ER 30 MG TABLET.ER PO SCH ×2 (09:08→21:44)
[2021-01-07] MEDS: metFORMIN 500 MG TABLET PO SCH (09:08)
[2021-01-07] MEDS: PANTOPRAZOLE 40 MG TABLET. PO SCH (09:08)
[2021-01-07] MEDS: FUROSEMIDE 20 MG TABLET PO SCH (09:09)
[2021-01-07] MEDS: CLOPIDOGREL BISULFATE 75 MG TABLET PO SCH (09:10)
[2021-01-07] MEDS: ASPIRIN CHEWABLE 81 MG TABLET. PO SCH (09:10)
[2021-01-07] MEDS: SERTRALINE 100 MG TABLET. PO SCH (09:10)
[2021-01-07] MEDS: SENNOSIDES 8.6 MG TABLET PO SCH (09:10)
[2021-01-07] MEDS: POTASSIUM CHLORIDE 10 MEQ TABLET.ER. PO SCH (09:11)
[2021-01-07 10:45] VITALS: BP 130/60
[2021-01-07] MEDS: PIPERACILLIN/TAZOBACTAM 4.5 GM in IV NORMAL SALINE 50ML 50 ML IV SCH ×2 (12:52→17:23)
[2021-01-07 15:32] VITALS: BP 99/61
--- NOTE | 2021-01-07 17:27 | HP ---
DATE OF SERVICE: 01/07/2021 ADMIT DATE: 01/07/2021 HISTORY OF PRESENT ILLNESS: The patient is a 70-year-old male patient who presented to the Emergency Room at [facility], stating that the Infectious Disease doctor's office told him to come to the nearest Emergency Department to have his right PICC line removed due to blood clot. The patient was at the [facility] and was seen in the infusions clinic and in the wound care clinic, he then had an ultrasound done of his upper arm due to pain and swelling. While the patient was at the [facility], the received a call stating that there was a blood clot in his arm and that he will need to have the line removed. The patient was already home when this happened. Today, he presented to [facility] for removal of the PICC line. The patient currently has antibiotic infusion through his PICC line ____ and the does hang that out every 24 hours, the infusion is not labeled, so unknown antibiotic at this time. He was extensively investigated in the Emergency Room and has had lab work as well as imaging studies. His lab work showed his white cell count was normal. His prothrombin time, INR, and APTT were normal. His chemistry showed he has mildly impaired kidney function. His toxic screen showed his vancomycin peak was 30.8 and had his coronavirus, the PCR was negative. The patient was admitted for anticoagulation and to continue his antibiotic treatment. Other than the pain and swelling of his right upper extremity, he denied any other complaints. The patient stated that he has been receiving hyperbaric oxygen treatment at [facility] for presumably wounds on his right foot. PAST MEDICAL HISTORY: Significant for coronary artery disease status post PCI with stent deployment. He has myocardial infarction x 3, has hypertension, hyperlipidemia, peripheral vascular disease, status post multiple bilateral lower extremity stent deployment, and history of nephrolithiasis. He has left middle cerebral artery territory infarct with right-sided hemiplegia; history of hepatitis C or B; osteoarthritis; COPD; obstructive sleep apnea, on CPAP. PAST SURGICAL HISTORY: Significant for left knee arthroscopic surgery, left big toe partial amputation, right big toe partial amputation. He has right third toe amputation. He has multiple bilateral lower extremity stent deployment. He has percutaneous coronary angioplasty and stent deployment. He has also bilateral rotator cuff repair. FAMILY HISTORY: He has 4 sisters, the eldest has uterine cancer. Father at age of 57 because of COPD and mother at age of 37 because of complication of meningitis. SOCIAL HISTORY: He is , has a son and a daughter from previous marriage. None from his current marriage. He quit smoking 4 months ago; however, he continued to vape. He drinks alcohol occasionally, although his account seems to be somewhat suspicious, as HE WAS ALLERGIC TO ANTI-ABUSE MEDICATION. He denied any illicit drugs. 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 REVIEW OF SYSTEMS: The patient denied any blurring of vision, cataracts, glaucoma or macular degeneration. Denied any earache, tinnitus or sensory deafness. Denied any nosebleed, stuffy nose or postnasal drip. Denied any sore throat, sore tongue, toothache, hoarseness of voice or difficulty swallowing. Denied any nausea, vomiting, diarrhea or constipation. Denied any hematemesis, melena or hematochezia. He denied any dysuria, frequency or hematuria. Denied any chest pain, shortness of breath, orthopnea or paroxysmal nocturnal dyspnea. Denied any cough, phlegm or hemoptysis. Denied any dizziness, lightheadedness or vertigo. Denied any chills, rigors or fever. PHYSICAL EXAMINATION: GENERAL: On arrival to the Emergency Room, he looked well and was clearly in no apparent respiratory distress. He was pale, not jaundiced, cyanosed, no lymphadenopathy, no thyromegaly, no jugular venous distention. No lower limb edema; however, his right upper extremity is more swollen than his left upper extremity. VITAL SIGNS: His heart rate was 73, blood pressure is 123/72, temperature was 98, respiratory rate was 18 and oxygen saturation was 96%. HEAD, EYES, EARS, NOSE AND THROAT: Normocephalic, atraumatic. NECK: Supple. HEART: Showed normal first and second heart sounds. No gallop or murmur. CHEST: Clear to auscultation. No crepitation or rhonchi. ABDOMEN: Distended, soft, nontender. NEUROLOGIC: He was awake, alert, responding appropriately. All cranial nerves intact. He moves extremities without difficulty. He ambulates with crutches. LABORATORY DATA: His lab work on arrival to the Emergency Room showed a white cell count of 8100, hemoglobin 11.7, hematocrit 37, MCV 89 and platelet count of 149,000. His prothrombin time, INR and APTT were normal. His chemistry showed a serum sodium of 142, potassium 4.5, chloride 105, bicarbonate 27, anion gap of 10, BUN 19, creatinine 1.4. Estimated GFR was 50 mL per minute. His glucose was 66, calcium was 9.1. His toxic screen showed his vancomycin trough level was high at 30.8. He has had a right upper extremity venous Doppler ultrasound, which showed that the patient has no evidence of deep vein thrombosis. ASSESSMENT AND PLAN: The patient was started on Lovenox 1 mg/kg. We reconciled all his medication. Continue with IV antibiotic in the form of vancomycin and Zosyn. Plan is to continue this over the weekend and hopefully on Saturday, he could have another PICC line to continue treatment for his right fourth toe osteomyelitis. BERRY/MONA/NEPTALI DR: Lorene TID: [id number]
[2021-01-07 18:29] VITALS: BP 138/78
--- NOTE | 2021-01-07 18:43 | NUR ---
Nursing note: Pt alert, oriented x 4, pleasant, cooperative. Pt has right foot pain which is alleviated by morphine. Pt ambulates ocassionally to bathroom with crutches and supervision. Pt has good appetite. Will continue care and monitor pt's condition.
[2021-01-07] MEDS ORDERED: PRAZOSIN 1 MG CAPSULE. PO SCH (21:00)
[2021-01-07] MEDS ORDERED: ATORVASTATIN CALCIUM 20 MG TABLET PO SCH (21:00)
[2021-01-07] MEDS ORDERED: ASCORBIC ACID 500 MG TABLET PO SCH (21:00)
[2021-01-07] MEDS ORDERED: SENNOSIDES 8.6 MG TABLET PO SCH (21:00)
[2021-01-07] MEDS ORDERED: PRAMIPEXOLE 0.5 MG TABLET. PO SCH (21:00)
[2021-01-07] MEDS ORDERED: QUEtiapine 100 MG TABLET. PO SCH (21:00)
[2021-01-07] MEDS ORDERED: GABAPENTIN 300 MG CAPSULE. PO SCH (21:00)
[2021-01-07 23:35] VITALS: BP 120/76
[2021-01-08] MEDS: PIPERACILLIN/TAZOBACTAM 4.5 GM in IV NORMAL SALINE 50ML 50 ML IV SCH ×3 (00:11→12:45)
[2021-01-08] MEDS ORDERED: VANCOMYCIN 1.5 GM in IV NORMAL SALINE 500ML 500 ML IV SCH (02:00)
--- NOTE | 2021-01-08 02:31 | NUR ---
Nursing note: Per [facility] pharmacy, vanc trough rescheduled for after 3rd dose 01/10/21 at 0200.
[2021-01-08 06:10] VITALS: BP 106/65
[2021-01-08 07:31] LABS: BASO % 0 % (0-3); EOS # 0.3 x10^3/uL (0.0-0.7); EOS % 5 % (0-3); HEMATOCRIT 33.1 % (39.0-53.0); HEMOGLOBIN 10.6 g/dL (13.0-17.5); LYMPH # 2.1 x10^3/uL (1.0-4.8); LYMPH % 34 % (24-48); MEAN CORPUSCULAR HEMOGLOBIN 28 pg (25-35); MEAN CORPUSCULAR HGB CONC 32 g/dL (31-37); MEAN CORPUSCULAR VOLUME 89 fL (79-100); MONO # 0.4 x10^3/uL (0.0-1.1); MONO % 7 % (0-9); NEUT # 3.4 x10^3uL (1.8-7.7); NEUT % 54 % (31-73); PLATELET COUNT 119 x10^3/uL (140-400); RED BLOOD COUNT 3.72 x10^6/uL (4.30-5.70); RED CELL DISTRIBUTION WIDTH 16.7 % (11.5-14.5); WHITE BLOOD COUNT 6.2 x10^3/uL (4.0-11.0)
[2021-01-08] MEDS: PANTOPRAZOLE 40 MG TABLET. PO SCH (07:40)
[2021-01-08] MEDS: MORPHINE ER 30 MG TABLET.ER PO SCH (07:41)
[2021-01-08] MEDS: POTASSIUM CHLORIDE 10 MEQ TABLET.ER. PO SCH (07:41)
[2021-01-08] MEDS: CLOPIDOGREL BISULFATE 75 MG TABLET PO SCH (07:42)
[2021-01-08] MEDS: metFORMIN 500 MG TABLET PO SCH (07:42)
[2021-01-08] MEDS: SERTRALINE 100 MG TABLET. PO SCH (07:42)
[2021-01-08] MEDS: buPROPion SR 150 MG TABLET.SA PO SCH (07:42)
[2021-01-08] MEDS: SENNOSIDES 8.6 MG TABLET PO SCH (07:42)
[2021-01-08] MEDS: ASPIRIN CHEWABLE 81 MG TABLET. PO SCH (07:42)
[2021-01-08] MEDS: FUROSEMIDE 20 MG TABLET PO SCH (07:43)
[2021-01-08] MEDS: LACTOBACILLUS RHAMNOSUS GG 1 CAPSULE. PO SCH (07:43)
[2021-01-08] MEDS: TAMSULOSIN 0.4 MG CAP.ER.24H. PO SCH (07:43)
[2021-01-08 07:44] LABS: ALBUMIN 2.7 g/dL (3.4-5.0); ALBUMIN/GLOBULIN RATIO 0.6 (1.0-1.7); CALCIUM 8.4 mg/dL (8.5-10.1); CREATININE 1.2 mg/dL (0.7-1.3); GFR 59.9; POTASSIUM 3.8 mmol/L (3.5-5.1); TOTAL BILIRUBIN 0.3 mg/dL (0.2-1.0); TOTAL PROTEIN 6.9 g/dL (6.4-8.2)
[2021-01-08] MEDS: FLUTICASONE 50MCG/NASAL SPRAY 16GM BOTTLE. NS SCH (07:45)
[2021-01-08 08:58] LABS: SEDIMENTATION RATE 53 (0-15)
[2021-01-08 11:25] VITALS: BP 105/57
[2021-01-08 15:49] VITALS: BP 108/64
--- NOTE | 2021-01-08 16:19 | NUR ---
Order Verified Yes Consent signed Yes Previous PICC placement Yes Past Medical/Surgical history and current diagnosis reviewed Yes Patient Medical /Surgical History Related to PICC line placement None Special considerations for PICC line placement Thrombosis with last right arm picc several weeks ago, current ultrasound confirming it is no longer there, spoke with Dr Concepcion, concern for pt with left picc and past thrombosis, Dr Concepcion gave ok for Left PICC . PICC placement indication superintendent terminal antibiotic usage, Name of PICC Nurse Tatiana Khanna RN
--- NOTE | 2021-01-08 16:25 | NUR ---
Procedure: Following complete explanation of the PICC procedure including the indications, risks, and potential complications, informed consent was obtained. The possibility for infection was discussed along with signs, symptoms, and prevention. All the patients questions were answered. IV Device Protocol was used. Written and verbal patient education was provided. Hand hygiene performed. Standardized central line checklist was utilized. The patient was placed in the supine position, the left arm was prepped with chlorhexidine and patient draped with maximum sterile barrier. 1 mL 1% lidocaine was infiltrated into the skin to provide local anesthesia. A thorough assessment of the left upper extremity completed. Using real-time ultrasound guidance and standardized micro puncture set, the basilic vein was punctured and a peel away sheath was placed using the modified Seldinger technique. A tip location device was used to ensure adequate catheter placement. The catheter was secured using a securement device and an antimicrobial patch was applied directly on the insertion site followed by a transparent dressing. The purple port withdrew blood and flushed without resistance. Patient tolerated the procedure without apparent complication. A single Lumen Power PICC placement successful and uncomplicated. Placement verified by EKG tip confirmation system with green p wave and lisa observed. Tip located in the low SVC per 3CG Complications: None
[2021-01-08] MEDS ORDERED: APIX5TAB5 PO (16:55)
--- NOTE | 2021-01-08 21:21 | PN ---
SUBJECTIVE: The patient is sitting at the edge of the bed comfortably, in no apparent respiratory distress. On questioning him, he denied any complaint. Nursing staff did not voice any concerns that he had an eventful night. PHYSICAL EXAMINATION: GENERAL: When I examined him, he looked well and was clearly in no apparent respiratory distress. He was somewhat pale. No jaundice, cyanosis or thyromegaly. No jugular venous distention. No limb edema. VITAL SIGNS: His heart rate was 71, blood pressure was 105/57, temperature was 97.6, respiratory rate was 20 and oxygen saturation was 95% on room air. HEAD, EYES, EARS, NOSE, AND THROAT: Normocephalic, atraumatic. NECK: Supple. HEART: Showed normal first and second heart sounds. No gallop or murmur. CHEST: Clear to auscultation, no crepitation or rhonchi. ABDOMEN: Distended, soft, nontender. NEUROLOGIC: He was grossly intact. His intake and output are incompletely recorded. LABORATORY DATA: This morning showed a white cell count of 6200, hemoglobin 10, hematocrit 33, MCV 89 and platelet count of 119,000. His chemistry showed a serum sodium 140, potassium 3.8, chloride 108, bicarbonate 21, anion gap 11, BUN 14, creatinine 1.2. Estimated GFR was 59 mL per minute. His glucose 114, calcium was 8.4. Total bilirubin, AST, ALT, alkaline phosphatase were normal. Total protein 6.9, albumin was 2.7. His C-reactive protein was 16. His sedimentation rate was 53 mm per hour. His prothrombin time, INR and APTT were normal. Toxic screen was negative. ASSESSMENT: The patient was admitted for right upper extremity deep vein thrombosis. His PICC line was removed. We will continue with IV antibiotic for right foot osteomyelitis with IV vancomycin and Zosyn. PLAN: To place another PICC line on the left side and I have spoken to his to get us the name of the antibiotic and he can be discharged home on Eliquis to follow with his primary care physician at the [facility]. PADMINI DR: Lorene TID: [id number]
== END 2021-01-08 17:45 | disposition home or self-care (01) | DRG 300 ==
LOC: ER 18:06 → 1 SOUTH 01-07 00:50
PROVIDERS: ADMIT Internal Medicine; ATTEND Internal Medicine
PROC: 02HV33Z Insertion of Infusion Device into Superior Vena Cava, Percutaneous Approach (ICD-10-PCS; principal; 2021-01-08)
PROC: B548ZZA Ultrasonography of Superior Vena Cava, Guidance (ICD-10-PCS; 2021-01-08)
PROC: 02PYX3Z Removal of Infusion Device from Great Vessel, External Approach (ICD-10-PCS; 2021-01-08)
DX: I82.621 Acute embolism and thrombosis of deep veins of right upper extremity (principal); M86.8X7 Other osteomyelitis, ankle and foot; G81.91 Hemiplegia, unspecified affecting right dominant side; E11.69 Type 2 diabetes mellitus with other specified complication; I25.10 Atherosclerotic heart disease of native coronary artery without angina pectoris; I10 Essential (primary) hypertension; E11.51 Type 2 diabetes mellitus with diabetic peripheral angiopathy without gangrene; E78.00 Pure hypercholesterolemia, unspecified; E78.5 Hyperlipidemia, unspecified; G25.81 Restless legs syndrome; J44.9 Chronic obstructive pulmonary disease, unspecified; N28.9 Disorder of kidney and ureter, unspecified; F32.A Depression, unspecified; G43.909 Migraine, unspecified, not intractable, without status migrainosus; K21.9 Gastro-esophageal reflux disease without esophagitis; Z95.5 Presence of coronary angioplasty implant and graft; Z87.891 Personal history of nicotine dependence; Z87.442 Personal history of urinary calculi; Z86.73 Personal history of transient ischemic attack (TIA), and cerebral infarction without residual deficits; Z86.718 Personal history of other venous thrombosis and embolism; Z82.5 Family history of asthma and other chronic lower respiratory diseases; I25.2 Old myocardial infarction; M19.90 Unspecified osteoarthritis, unspecified site; Z20.822 Contact with and (suspected) exposure to COVID-19
CPT/HCPCS: 36415; 36569; 80048; 80053; 80202; 82947; 85025; 85610; 85651; 85730; 86140; 87040; 87070; 87426; 93971; J1650; J2543; J3370; J7040; J7120; U0003; 99285-25

== ENCOUNTER → 2021-01-23 | Outpatient (CLI) | payer MEDICARE, BC ==
[2021-01-08 15:49] VITALS: BP 108/64
[~2021-01-23] MED LIST changes: +ALBU2.5V5 NEB; +APIX5TAB5 PO; +ASCO500C PO; +BUPR150T11 PO; +CEFD300C PO; +FURO20TA3 PO; +GABA-586 PO; +HYDR-2155 PO; +METF500T16 PO; +MORP-16 PO; +POTA10TA12 PO; +PRAZ2CAP2 PO; +QUET100T4 PO; +SENN8.6T11 PO; +SERT100T PO; +SULF1TAB24 PO; +TIOT18CA IH
[2021-01-23 10:33] LABS: BASO % 0 % (0-3); EOS # 0.2 x10^3/uL (0.0-0.7); EOS % 3 % (0-3); HEMATOCRIT 35.6 % (39.0-53.0); HEMOGLOBIN 11.5 g/dL (13.0-17.5); LYMPH # 1.3 x10^3/uL (1.0-4.8); LYMPH % 20 % (24-48); MEAN CORPUSCULAR HEMOGLOBIN 29 pg (25-35); MEAN CORPUSCULAR HGB CONC 32 g/dL (31-37); MEAN CORPUSCULAR VOLUME 89 fL (79-100); MONO # 0.5 x10^3/uL (0.0-1.1); MONO % 8 % (0-9); NEUT # 4.3 x10^3uL (1.8-7.7); NEUT % 69 % (31-73); PLATELET COUNT 171 x10^3/uL (140-400); RED BLOOD COUNT 4.01 x10^6/uL (4.30-5.70); RED CELL DISTRIBUTION WIDTH 16.3 % (11.5-14.5); WHITE BLOOD COUNT 6.3 x10^3/uL (4.0-11.0)
[2021-01-23 10:49] LABS: ALBUMIN 3.4 g/dL (3.4-5.0); ALBUMIN/GLOBULIN RATIO 0.8 (1.0-1.7); C REACTIVE PROTEIN 13.1 mg/L (0-3.3); CALCIUM 9.2 mg/dL (8.5-10.1); CREATININE 1.4 mg/dL (0.7-1.3); GFR 50.1; TOTAL BILIRUBIN 0.4 mg/dL (0.2-1.0); TOTAL PROTEIN 7.7 g/dL (6.4-8.2)
== END ==
LOC: SPEC 10:17
PROVIDERS: ATTEND Internal Medicine Infectious Disease
DX: Z45.2 Encounter for adjustment and management of vascular access device (principal)
CPT/HCPCS: 36415; 80053; 85025; 86140

== ENCOUNTER → 2021-01-30 | Outpatient (CLI) | payer MEDICARE, BC ==
[2021-01-08 15:49] VITALS: BP 108/64
[2021-01-30 11:49] LABS: BASO % 1 % (0-3); EOS # 0.2 x10^3/uL (0.0-0.7); EOS % 4 % (0-3); HEMATOCRIT 36.3 % (39.0-53.0); HEMOGLOBIN 11.6 g/dL (13.0-17.5); LYMPH # 1.5 x10^3/uL (1.0-4.8); LYMPH % 22 % (24-48); MEAN CORPUSCULAR HEMOGLOBIN 28 pg (25-35); MEAN CORPUSCULAR HGB CONC 32 g/dL (31-37); MEAN CORPUSCULAR VOLUME 89 fL (79-100); MONO # 0.4 x10^3/uL (0.0-1.1); MONO % 7 % (0-9); NEUT # 4.6 x10^3uL (1.8-7.7); NEUT % 67 % (31-73); PLATELET COUNT 153 x10^3/uL (140-400); RED BLOOD COUNT 4.09 x10^6/uL (4.30-5.70); RED CELL DISTRIBUTION WIDTH 16.5 % (11.5-14.5); WHITE BLOOD COUNT 6.8 x10^3/uL (4.0-11.0)
[2021-01-30 12:05] LABS: ALBUMIN 3.1 g/dL (3.4-5.0); ALBUMIN/GLOBULIN RATIO 0.7 (1.0-1.7); C REACTIVE PROTEIN 14.1 mg/L (0-3.3); CALCIUM 9.2 mg/dL (8.5-10.1); CREATININE 1.2 mg/dL (0.7-1.3); GFR 59.9; POTASSIUM 4.2 mmol/L (3.5-5.1); TOTAL BILIRUBIN 0.2 mg/dL (0.2-1.0); TOTAL PROTEIN 7.3 g/dL (6.4-8.2)
== END ==
LOC: SPEC 10:23
PROVIDERS: ATTEND Internal Medicine Infectious Disease
DX: Z45.2 Encounter for adjustment and management of vascular access device (principal)
CPT/HCPCS: 36415; 80053; 85025; 86140

== ENCOUNTER → 2021-02-06 | Outpatient (CLI) | payer MEDICARE, BC ==
[2021-01-08 15:49] VITALS: BP 108/64
[2021-02-06 11:12] LABS: BASO # 0.1 x10^3/uL (0.0-0.2); BASO % 1 % (0-3); EOS # 0.2 x10^3/uL (0.0-0.7); EOS % 2 % (0-3); HEMATOCRIT 36.4 % (39.0-53.0); HEMOGLOBIN 11.9 g/dL (13.0-17.5); LYMPH # 2.1 x10^3/uL (1.0-4.8); LYMPH % 27 % (24-48); MEAN CORPUSCULAR HEMOGLOBIN 29 pg (25-35); MEAN CORPUSCULAR HGB CONC 33 g/dL (31-37); MEAN CORPUSCULAR VOLUME 90 fL (79-100); MONO # 0.5 x10^3/uL (0.0-1.1); MONO % 6 % (0-9); NEUT # 5.1 x10^3uL (1.8-7.7); NEUT % 64 % (31-73); PLATELET COUNT 144 x10^3/uL (140-400); RED BLOOD COUNT 4.07 x10^6/uL (4.30-5.70); RED CELL DISTRIBUTION WIDTH 16.8 % (11.5-14.5); WHITE BLOOD COUNT 7.9 x10^3/uL (4.0-11.0)
[2021-02-06 12:03] LABS: ALBUMIN 3.4 g/dL (3.4-5.0); ALBUMIN/GLOBULIN RATIO 0.8 (1.0-1.7); C REACTIVE PROTEIN 12.8 mg/L (0-3.3); CALCIUM 9.3 mg/dL (8.5-10.1); CREATININE 1.5 mg/dL (0.7-1.3); GFR 46.3; POTASSIUM 3.7 mmol/L (3.5-5.1); TOTAL BILIRUBIN 0.2 mg/dL (0.2-1.0); TOTAL PROTEIN 7.6 g/dL (6.4-8.2)
== END ==
LOC: LAB 10:10
PROVIDERS: ATTEND Internal Medicine Infectious Disease
DX: Z45.2 Encounter for adjustment and management of vascular access device (principal)
CPT/HCPCS: 36415; 80053; 85025; 86140